=== PATIENT | male | born 1960 | race Caucasian/White ===

== ENCOUNTER → 2016-12-04 | Outpatient (CLI) | payer BC ==
[~2016-12-04] MED LIST: ASPEC81 PO; GABA-113 PO; HYDR-5688 PO; HYDR25TA4 PO; LISI2.5T5 PO; LOSA50TA6 PO; OXYC-57 PO; PANT40TA PO; POLY335019 PO; ZLF/100 PO; ZLF/50 PO; ZOLP10TA PO
--- NOTE | 2016-12-04 13:07 | DIAGNOSTIC IMAGING REPORT ---
TESTICULAR ULTRASOUND CLINICAL HISTORY: Inguinal pain COMPARISON STUDY: None FINDINGS: The right testis measures 4.9 x 2.3 x 3.1 cm. The left testis measures 5.0 x 2.3 x 2.9 cm. There is no evidence of testicular torsion. There is a 2 mm cyst of the tunica on the left. There is a small epididymal cyst on the left. IMPRESSION: 1. No evidence of testicular torsion 2. 2 mm left-sided cyst of the tunica Electronically signed by: Ruy Mccrary M.D. 12/04/2016 1:06 PM Dictated Date/Time: 12/04/2016 1:04 PM
--- NOTE | 2016-12-04 13:21 | DIAGNOSTIC IMAGING REPORT ---
LEFT INGUINAL ULTRASOUND CLINICAL HISTORY: Left inguinal pain COMPARISON STUDY: No previous studies for comparison. FINDINGS: There is a large bowel and fat-containing reducible left inguinal hernia. IMPRESSION: Bowel and fat-containing left inguinal hernia which is reducible. Electronically signed by: Ruy Mccrary M.D. 12/04/2016 1:19 PM Dictated Date/Time: 12/04/2016 1:18 PM
== END | disposition home or self-care (01) ==
LOC: C.ULTR 12:02
PROVIDERS: ATTEND Family Medicine
DX: K40.90 Unilateral inguinal hernia, without obstruction or gangrene, not specified as recurrent (principal); N44.1 Cyst of tunica albuginea testis

== ENCOUNTER 2017-01-25 07:19 | Day surgery (SDC) | payer BC ==
[2017-01-11 09:06] VITALS: BMI 35.0
--- NOTE | 2017-01-11 09:30 | PAT Medication Instructions ---
Service Date January 11, 2017. Current Home Medication List Gabapentin (Neurontin), 300 MG PO QID Hydrochlorothiazide (Hctz), 25 MG PO QAM Losartan Potassium (Cozaar), 50 MG PO QAM Pantoprazole (Protonix), 40 MG PO HS Polyethylene Glycol 3350 (Miralax), 17 GM PO DAILY Sertraline HCl (Sertraline HCl), 50 MG PO QAM Zolpidem Tartrate (Ambien), 10 MG PO HS Medication Instructions For Your Scheduled Surgery - Hold the following medications the morning of surgery: Hydrochlorothiazide (Hctz), 25 MG PO QAM Losartan Potassium (Cozaar), 50 MG PO QAM Polyethylene Glycol 3350 (Miralax), 17 GM PO DAILY - Take the following medications the morning of surgery with a sip of water OTHERWISE NOTHING TO EAT OR DRINK AFTER MIDNIGHT: Gabapentin (Neurontin), 300 MG PO QID Sertraline HCl (Sertraline HCl), 50 MG PO QAM - Take the following medications as scheduled the night before surgery: Pantoprazole (Protonix), 40 MG PO HS Zolpidem Tartrate (Ambien), 10 MG PO HS Gabapentin (Neurontin), 300 MG PO QID If you have any questions please call us at [phone] or [phone] or [phone]
[2017-01-11 10:44] LABS: BASO % 0.1 %; BASO ABS # 0.01 K/uL (0-0.2); COMPLETE YES; EOS % 0.9 %; HEMATOCRIT 44.2 % (42-52); IG% 0.2 %; LYMPH % 15.4 %; LYMPH ABS # 1.52 K/uL (1.2-3.4); MEAN CELL VOLUME 90.8 fL (80-100); MEAN CORPUSCULAR HEMOGLOBIN 30.8 pg (25-34); MEAN CORPUSCULAR HGB CONC 33.9 g/dl (32-36); MEAN PLATELET VOLUME 10.4 fL (7.4-10.4); MONO % 7.5 %; NEUT % 75.9 %; PLATELET COUNT 214 K/uL (130-400); RED BLOOD COUNT 4.87 M/uL (4.7-6.1); WHITE BLOOD COUNT 9.88 K/uL (4.8-10.8)
[2017-01-11 11:30] LABS: BUN/CREATININE RATIO 13.2 (10-20); CALCIUM 9.3 mg/dl (8.5-10.1); POTASSIUM 4.1 mmol/L (3.5-5.1)
[~2017-01-25] VITALS: Ht 177.8 cm; Wt 109.9 kg
[~2017-01-25 07:19] MED LIST changes: -ASPEC81 PO; +BUPIVACAINE/EPINEPHRINE 0.5% MPF 1:200,000 30 ML VIAL ONE; +CEFAZOLIN 2000 MG/60 ML D5W IV SCH; -HYDR-5688 PO; +LACTATED RINGER'S 1000ML 1,000 ML IV SCH; -LISI2.5T5 PO; -OXYC-57 PO; -ZLF/100 PO
[2017-01-25] MEDS ORDERED: ROCURONIUM BROMIDE 10 MG/ML 5 ML VIAL ONE (07:49)
[2017-01-25] MEDS ORDERED: FENTANYL CITRATE INJ 50 MCG/1 ML 2 ML VIAL ONE ×3 (07:49→09:57)
[2017-01-25] MEDS ORDERED: MIDAZOLAM HCL 1 MG/ML 2ML VIAL ONE (07:49)
[2017-01-25] MEDS ORDERED: LIDOCAINE HCL 2% 2 ML VIAL (20MG/ML) ONE (07:49)
[2017-01-25] MEDS ORDERED: PROPOFOL IV EMULSION 10 MG/ML 20 ML VIAL IV ONE (07:49)
[2017-01-25 07:51] VITALS: BP 174/96; PULSE 89; TEMP 37.4; O2SAT 98; Ht 177.8 cm; Wt 109.9 kg
--- NOTE | 2017-01-25 08:15 | History & Physical Bridge Note ---
H&P Re-Evaluation Bridge Note: I have examined the patient, reviewed the History & Physical and in the interval since the performance of the History & Physical I have noted the following changes of clinical significance: No changes noted
[2017-01-25] MEDS ORDERED: ONDANSETRON INJ 2 MG/ML 2 ML VIAL ONE (09:06)
[2017-01-25] MEDS ORDERED: DEXAMETHASONE SOD INJ 4 MG/ML VIAL ONE (09:06)
--- NOTE | 2017-01-25 09:35 | [facility] Operative Report ---
Operative Report Operative Date January 25, 2017. Pre-Operative Diagnosis Left Inguinal Hernia Post-Operative Diagnosis recurrent LIH Procedure(s) Performed open repair of recurrent LIH with plug/patch mesh Surgeon Director Of Religious Activities Surgeon(s) joanie farrell Pa-c; scar cohen Pa-c Estimated Blood Loss 10ml Findings large recurrent indirect LIH Specimens None per surgeon. Anesthesia LMA Complication(s) None Disposition Recovery Room / PACU I attest to the content of the Intraoperative Record and any orders documented therein. Any exceptions are noted below.
[2017-01-25] MEDS ORDERED: LACTATED RINGER'S 1000ML 1,000 ML IV SCH (09:46)
[2017-01-25] MEDS ORDERED: HYDR-5688 PO (09:49)
--- NOTE | 2017-01-25 09:52 | Discharge Instructions ---
Discharge Instructions Date of Service January 25, 2017. Visit Reason for Visit: Left Inguinal Hernia Discharge Discharge Diagnosis / Problem: left inguinal hernia repair Discharge Goals Goal(s): Decrease discomfort Activity Recommendations Activity Limitations: as noted below Lifting Limitations: no more than 10 pounds Shower/Bathe: no limitations (ok to shower) Driving or Machine Use: resume 3 days after discharge (if not taking Houstonia) Anesthesia . Post Anesthesia Instructions: If you have had General Anesthesia or IV Sedation: * Do not drive today. * Resume driving when surgeon permits. * Do not make important decisions or sign legal documents today. * Call surgeon for: 1. Temperature elevations greater than 101 degrees F. 2. Uncontrollable pain. 3. Excessive bleeding. 4. Persistent nausea and vomiting. 5. Medication intolerance (nausea, vomiting or rash). * For nausea and vomiting use only clear liquids such as: tea, soda, bouillon until nausea subsides, then gradually increase diet as tolerated. * If you have any concerns or questions, call your surgeon's office. If physician is unavailable and it is an emergency, call 911 or go to the nearest emergency room. . Instructions / Follow-Up Instructions / Follow-Up Dr. Leal in 1-2 weeks, call [phone] if you do not already have an appt Ice left groin off and on alternating every 20 minutes until bedtime Diet Recommendations Recommended Home Diet: no limitations Procedures Procedures Performed: Left Open Inguinal Hernia Repair with Mesh Pending Studies Studies pending at discharge: no Medical Emergencies . Who to Call and When: Medical Emergencies: If at any time you feel your situation is an emergency, please call 911 immediately. . Non-Emergent Contact Non-Emergency issues call your: Surgeon Call Non-Emergent contact if: you have a fever, temperature is above 101.5, your pain is not controlled, wound has increased redness . . "Provider Documentation" section prepared by Arron Kim. .
[2017-01-25] MEDS: FENTANYL CITRATE INJ 50 MCG/1 ML 2 ML VIAL IV PRN ×4 (09:57→10:12)
[2017-01-25] MEDS ORDERED: ATROPINE SULFATE 0.1 MG/ML 5ML SYR IV PRN (10:00)
[2017-01-25] MEDS ORDERED: MoRPHine SULFATE 4 MG/ML 1 ML CARP\\VIAL IV PRN (10:00)
[2017-01-25] MEDS ORDERED: PROMETHAZINE HCL INJ 6.25 MG in SODIUM CHLORIDE 0.9% 50ML 50 ML IV PRN (10:00)
[2017-01-25] MEDS ORDERED: EpHEDrine SULFATE INJ 50 MG/ML AMP IV PRN (10:00)
[2017-01-25] MEDS ORDERED: HYDROCODONE/ACETAMOPHEN 5/325MG TAB PO PRN (10:00)
[2017-01-25] MEDS ORDERED: ONDANSETRON INJ 2 MG/ML 2 ML VIAL IV PRN ×2 (10:00)
--- NOTE | 2017-01-25 10:20 | OPERATIVE REPORT ---
DATE OF OPERATION: 01/25/2017 PREOPERATIVE DIAGNOSIS: Left inguinal hernia. POSTOPERATIVE DIAGNOSIS: Recurrent left inguinal hernia. PROCEDURES: Open left inguinal hernia repair with plug and patch mesh. SURGEON: Dr. Leal. POSTIE: Elliott Kim PA-C and Mary Zheng PA-C. ESTIMATED BLOOD LOSS: Approximately 10 mL. COMPLICATIONS: No immediate. ANESTHESIA: General laryngeal mask airway. OPERATION AND FINDINGS: OPERATIVE NOTE: After informed consent was obtained, the patient was taken to the operating suite, placed in supine position. After successful intubation a Rico catheter was placed and the lower abdomen was shaved and sterilely prepped and draped in usual fashion. The patient did not admit during history as well as my exam, I was unable because of body habitus and hair I was unable to see his previous bilateral open inguinal hernia repairs. I was under the assumption this was a first time hernia repair, however it was obvious he had had bilateral inguinal hernia repairs in the past. I started by making an inguinal incision just above his old incision so we could have some virgin anatomy to start with. We carried this down through the soft tissue using electrocautery. I was able to dissect down through the tissue to the external oblique aponeurosis. We skeletonized it laterally down to the shelving portion of the inguinal ligament. I then made a small incision in the external oblique aponeurosis with a fresh blade and carried this distally with the Metzenbaum scissors through the external ring as well as for several centimeters proximally. Fortunately, there was no mesh. I was able to dissect free the cord and cord structures. I was able to gently elevate the cord structures off the pubic bone with blunt finger dissection and placed the Arnulfo around them. As we began dissecting the cord structures there was a very large hernia sac with bowel within it. We were able use a lot of blunt dissection and small amounts of electrocautery to tease this away from the cord and cord structures. Eventually, I was able to get it the whole way back to its neck to what was a very large hernia defect. I was able to rather easily reduce this large hernia sac as well as the bowel within it. Because of the large size of the defect, it was difficult to keep it reduced. We used a polypropylene plug to place into the defect. We used 0 Ethibond to secure it to surrounding musculature as well as the shelving portion of the inguinal ligament to keep the hernia reduced. Once we did this, we were able to further inspect the anatomy. There was no evidence of any other hernias. The cord and cord structures looked healthy. We did irrigate the wound and then used a polypropylene keyholed mesh as an onlay overtop of the plug in the inguinal floor. We secured it distally to Chente's ligament, laterally along the shelving portion of Poupart's ligament and medially along the midline musculature. The "arms" of the mesh were wrapped around behind the cord structures and again secured to underlying muscle. This was all done with 0 Ethibond. We thoroughly irrigated the wound again. There was adequate hemostasis. Marcaine was injected around the edges of the mesh for postoperative analgesia. We then closed the external oblique aponeurosis with 2-0 Vicryl in a running fashion. Soft tissue was irrigated and closed with 3-0 Vicryl and 4-0 Monocryl. Some additional Marcaine was injected around the skin. Dermabond glue was used as a dressing. The patient was awakened, extubated, and transferred to recovery in stable condition. I attest to the content of the Intraoperative Record and any orders documented therein. Any exceptio ns are noted below.
[2017-01-25] MEDS ORDERED: LABETALOL HCL IV 5 MG/ML 20ML IV ONE (10:21)
[2017-01-25] MEDS ORDERED: NURSING VERBAL MED ORDER ONE (10:45)
[2017-01-25 10:50] VITALS: BP 136/90; PULSE 86; TEMP 36.8; O2SAT 97
[2017-01-25 11:20] VITALS: BP 141/85; PULSE 93; TEMP 36.6; O2SAT 94
--- NOTE | 2017-01-25 11:35 | Anesthesiology Progress Note ---
Anesthesia Post Op Note Date & Time January 25, 2017 at 11:34 Vital Signs Pain Intensity: 4 Vital Signs Past 12 Hours Date Time Temp Pulse Resp B/P Pulse Ox O2 Delivery O2 Flow Rate FiO2 01/25/17 11:20 36.6 93 16 141/85 94 Room Air 01/25/17 10:50 36.8 86 16 136/90 97 Room Air 01/25/17 10:35 36.7 87 14 137/93 98 Nasal Cannula 2 01/25/17 10:25 91 14 115/90 92 Nasal Cannula 2 01/25/17 10:15 108 14 162/135 96 Mask 10 01/25/17 10:05 101 14 185/125 96 Mask 10 01/25/17 09:55 102 14 186/106 96 Mask 10 01/25/17 09:45 36.9 102 14 162/101 96 Mask 10 01/25/17 07:51 37.4 89 20 174/96 98 Room Air Notes Mental Status: alert / awake / arousable, participated in evaluation Pt Amnestic to Procedure: Yes Nausea / Vomiting: adequately controlled Pain: adequately controlled Airway Patency, RR, SpO2: stable & adequate BP & HR: stable & adequate Hydration State: stable & adequate Anesthetic Complications: no major complications apparent Patient hypertensive on arrival, held his antihypertensives today. He did require treatment with 2x 10mg doses of labetalol in PACU for diastolic hypertension with no other apparent correctable cause. He will take his BP meds when he gets home.
[2017-01-25 11:50] VITALS: BP 141/84; PULSE 95; TEMP 36.4; O2SAT 92
[2017-01-25 12:20] VITALS: BP 141/82; PULSE 97; TEMP 36.3; O2SAT 92
[2017-01-25 12:50] VITALS: BP 140/80; PULSE 98; TEMP 36.9; O2SAT 92
== END 2017-01-25 13:40 | disposition home or self-care (01) ==
LOC: C.ACU 07:19
PROVIDERS: ATTEND Surgery
DX: K40.91 Unilateral inguinal hernia, without obstruction or gangrene, recurrent (principal); I10 Essential (primary) hypertension; E78.5 Hyperlipidemia, unspecified; K21.9 Gastro-esophageal reflux disease without esophagitis; Z79.899 Other long term (current) drug therapy

== ENCOUNTER 2017-01-28 03:11 | Emergency (ER) | payer BC ==
[~2017-01-28 03:11] MED LIST changes: -BUPIVACAINE/EPINEPHRINE 0.5% MPF 1:200,000 30 ML VIAL ONE; -CEFAZOLIN 2000 MG/60 ML D5W IV SCH; +HYDR-5688 PO; -LACTATED RINGER'S 1000ML 1,000 ML IV SCH
[2017-01-28 03:14] VITALS: TEMP 36.8; Ht 182.9 cm
[2017-01-28] MEDS ORDERED: ONDANSETRON INJ 2 MG/ML 2 ML VIAL IV STA ×2 (03:26→05:03)
[2017-01-28] MEDS ORDERED: SODIUM CHLORIDE 0.9% 1000ML 1,000 ML IV STA (03:26)
[2017-01-28] MEDS ORDERED: MoRPHine SULFATE 4 MG/ML 1 ML CARP\\VIAL IV STA ×2 (03:26→05:03)
--- NOTE | 2017-01-28 03:30 | EMERGENCY ROOM VISIT NOTE ---
History Report prepared by Bertoibkerri: Antonino Houser Under the Supervision of: Dr. Jesus Xiong D.O. First contact with patient: 03:20 Chief Complaint: ABDOMINAL PAIN Stated Complaint: HERNIA SX 01/25, SEVERE PAIN LLQ History of Present Illness The patient is a 56 year old male who presents to the Emergency Room with complaints of severe pain in the left inguinal area. The patient describes a burning pain that became worse tonight. The pain is also felt in the testicle area. The patient was unable to sit secondary to pain. The pain was not relieved from Vicodin or Oxycodone. The patient notes that his abdomen feels distended and he has been eating less. The patient recently had a herniorrhaphy performed by Dr. Leal three days ago. He has had the pain since the surgery which is now unbearable. Source of History: patient Onset: three days ago Position: abdomen (left inguinal area) Symptom Intensity: severe Quality: burning Timing: worsening Review of Systems See HPI for pertinent positives and negatives. A total of ten systems were reviewed and were otherwise negative. Past Medical & Surgical Medical Problems: (1) Chest pain (2) Hypertension Family History No pertinent family history Social History Smoking Status: Never Smoker Marital Status: Housing Status: lives with family Occupation Status: employed Current/Historical Medications Scheduled Gabapentin (Neurontin), 300 MG PO QID Hydrochlorothiazide (Hctz), 25 MG PO QAM Losartan Potassium (Cozaar), 50 MG PO QAM Pantoprazole (Protonix), 40 MG PO HS Polyethylene Glycol 3350 (Miralax), 17 GM PO DAILY Sertraline HCl (Sertraline HCl), 50 MG PO QAM Zolpidem Tartrate (Ambien), 10 MG PO HS Allergies Coded Allergies: CI Pigment Blue 63 (Verified Allergy, Intermediate, HIVES, BLISTERS, ) Fish Allergy (Verified Allergy, Intermediate, HIVES, FEVER, 01/28/17) Oseltamivir (Verified Allergy, Intermediate, HIVES, BLISTERS, 01/28/17) Tetanus Toxoid (Verified Allergy, Intermediate, FEVER, 01/28/17) Amoxicillin (Verified Allergy, Mild, HIVES, 01/28/17) Lisinopril (Verified Allergy, Mild, HIVES, 01/28/17) Shellfish (Verified Allergy, Mild, ANAPHYLACTIC, 01/28/17) Physical Exam Vital Signs Date Time Temp Pulse Resp B/P Pulse Ox O2 Delivery O2 Flow Rate FiO2 01/28/17 05:01 98 18 138/98 93 Room Air 01/28/17 04:02 96 01/28/17 03:14 36.8 106 18 129/87 94 Room Air Physical Exam GENERAL: Awake, alert, well-appearing, in no distress HENT: Normocephalic, atraumatic. Oropharynx unremarkable. EYES: Normal conjunctiva. Sclera non-icteric. NECK: Supple. No nuchal rigidity. FROM. No JVD. RESPIRATORY: Clear to auscultation. CARDIAC: Regular rate, normal rhythm. Extremities warm and well perfused. Pulses equal. ABDOMEN: Diffuse tenderness, decreased bowel sounds. Surgical site in the left inguinal region that appers intact. RECTAL: Deferred. : Ecchymosis to the scrotum and penis. MUSCULOSKELETAL: Chest examination reveals no tenderness. The back is symmetrical on inspection without obvious abnormality. There is no CVA tenderness to palpation. No joint edema. LOWER EXTREMITIES: Calves are equal size bilaterally and non-tender. No edema. No discoloration. Neurovascularly intact left lower leg. NEURO: Normal sensorium. No sensory or motor deficits noted. SKIN: No rash or jaundice noted. Diaphoretic. Medical Decision & Procedures ER Provider Diagnostic Interpretation: Radiology results as stated below per my review and radiologist interpretation CT ABDOMEN & PELVIS: Post-operative changes left inguinal hernia repair with fat stranding in the left inguinal region. Small gas bubbles and small fluid collection within the left inguinal region left lower pelvis likely reflects recent postop change. Colonic diverticulosis without convincing findings of acute diverticulitis. Normal appendix. No bowel obstruction. Distended gallbladder. Mild haziness of the mid abdominal mesentery with small nodes. May represent mesenteric panniculitis. Small hiatal hernia containing fluid. Mild basilar atelectasis. Radiologist: Neha Moran MD. Laboratory Results 01/28/17 03:46 Red Blood Count 4.67, Mean Corpuscular Volume 90.4, Mean Corpuscular Hemoglobin 30.0, Mean Corpuscular Hemoglobin Concent 33.2, Mean Platelet Volume 9.7, Neutrophils (%) (Auto) 76.9, Lymphocytes (%) (Auto) 12.4, Monocytes (%) (Auto) 8.5, Eosinophils (%) (Auto) 1.5, Basophils (%) (Auto) 0.3, Neutrophils # (Auto) 5.49, Lymphocytes # (Auto) 0.89, Monocytes # (Auto) 0.61, Eosinophils # (Auto) 0.11, Basophils # (Auto) 0.02 01/28/17 03:46 Test 01/28/17 03:46 White Blood Count 7.15 K/uL (4.8-10.8) Red Blood Count 4.67 M/uL (4.7-6.1) Hemoglobin 14.0 g/dL (14.0-18.0) Hematocrit 42.2 % (42-52) Mean Corpuscular Volume 90.4 fL (80-100) Mean Corpuscular Hemoglobin 30.0 pg (25-34) Mean Corpuscular Hemoglobin Concent 33.2 g/dl (32-36) Platelet Count 206 K/uL (130-400) Mean Platelet Volume 9.7 fL (7.4-10.4) Neutrophils (%) (Auto) 76.9 % Lymphocytes (%) (Auto) 12.4 % Monocytes (%) (Auto) 8.5 % Eosinophils (%) (Auto) 1.5 % Basophils (%) (Auto) 0.3 % Neutrophils # (Auto) 5.49 K/uL (1.4-6.5) Lymphocytes # (Auto) 0.89 K/uL (1.2-3.4) Monocytes # (Auto) 0.61 K/uL (0.11-0.59) Eosinophils # (Auto) 0.11 K/uL (0-0.5) Basophils # (Auto) 0.02 K/uL (0-0.2) RDW Standard Deviation 41.9 fL (36.4-46.3) RDW Coefficient of Variation 12.7 % (11.5-14.5) Immature Granulocyte % (Auto) 0.4 % Immature Granulocyte # (Auto) 0.03 K/uL (0.00-0.02) Anion Gap 6.0 mmol/L (3-11) Estimated GFR () 107.3 Estimated GFR (Non- 92.6 BUN/Creatinine Ratio 21.2 (10-20) Calcium Level 8.4 mg/dl (8.5-10.1) Total Bilirubin 0.6 mg/dl (0.2-1) Direct Bilirubin 0.2 mg/dl (0-0.2) Aspartate Amino Transf (AST/SGOT) 11 U/L (15-37) Alanine Aminotransferase (ALT/SGPT) 19 U/L (12-78) Alkaline Phosphatase 80 U/L (45-117) Total Protein 7.1 gm/dl (6.4-8.2) Albumin 3.4 gm/dl (3.4-5.0) Lipase 81 U/L (73-393) Laboratory results reviewed by me Medications Administered Medications (Trade) Dose Ordered Sig/John Route Start Time Stop Time Status Last Admin Dose Admin Sodium Chloride (Nss 1000ml) 1,000 ml @ 999 mls/hr Q1H1M STAT IV 01/28/17 03:26 01/28/17 04:26 DC 01/28/17 03:55 999 MLS/HR Ondansetron HCl (Zofran Inj) 4 mg NOW STAT IV 01/28/17 03:26 01/28/17 03:28 DC 01/28/17 03:56 4 MG Morphine Sulfate (MoRPHine SULFATE INJ) 4 mg NOW STAT IV 01/28/17 03:26 01/28/17 03:28 DC 01/28/17 03:55 4 MG Morphine Sulfate (MoRPHine SULFATE INJ) 4 mg NOW STAT IV 01/28/17 05:03 01/28/17 05:05 DC 01/28/17 05:08 4 MG Ondansetron HCl (Zofran Inj) 4 mg NOW STAT IV 01/28/17 05:03 01/28/17 05:05 DC 01/28/17 05:07 4 MG ED Course 0320: The patient was evaluated in room A2. A complete history and physical exam was performed. 0326: Morphine Sulfate 4 mg IV, Zofran 4 mg IV, NSS 1000 ml @ 999 mls/hr. 0503: Zofran 4 mg IV, Morphine Sulfate 4 mg IV. 0558: Discussed the case with Dr. Sanford, General Surgery. The patient can be discharged. 0605: I reevaluated the patient, he was resting in no distress. Discussed results and discharge instructions: He verbalized understanding and agreement. The patient is ready for discharge. Medical Decision Differential diagnosis post-op pain, bowel obstruction, constipation, neuropathy. Resting in no distress on repeat examination discussed the evaluation with Dr. Sanford from surgery and read the CT result to him. Likely postoperative pain. Patient will follow-up with Dr. Leal this week. I discussed evaluation with the patient patient's son at bedside. I will change his pain medicine to Percocet. Consults Time Called: 0550 Consulting Physician: Dr. Sanford, General Surgery. Returned Call: [phone] The patient can be discharged. Impression Primary Impression: Postoperative pain, acute, groin Scribe Attestation The scribe's documentation has been prepared under my direction and personally reviewed by me in its entirety. I confirm that the note above accurately reflects all work, treatment, procedures, and medical decision making performed by me. Departure Information Dispostion Home / Self-Care Prescriptions Oxycodone/Acetaminophen 5MG/325MG (PERCOCET 5MG/325MG) Tab 1 TAB PO Q4H Y for Pain, #20 TAB Prov: Jesus Xiong, 01/28/17 Referrals Heather Peterson PA-C (PCP) Forms Call Back Authorization, HOME CARE DOCUMENTATION FORM, IMPORTANT VISIT INFORMATION Patient Instructions Abdominal Pain, My [facility] Problem Qualifiers Primary Impression: Postoperative pain, acute, groin Laterality: left Qualified Codes: R10.32 - Left lower quadrant pain; G89.18 - Other acute postprocedural pain
[2017-01-28] MEDS ORDERED: OPTIRAY 320 IV PRN (03:45)
[2017-01-28 03:59] LABS: BASO % 0.3 %; BASO ABS # 0.02 K/uL (0-0.2); COMPLETE YES; EOS % 1.5 %; HEMATOCRIT 42.2 % (42-52); IG% 0.4 %; LYMPH % 12.4 %; LYMPH ABS # 0.89 K/uL (1.2-3.4); MEAN CELL VOLUME 90.4 fL (80-100); MEAN CORPUSCULAR HGB CONC 33.2 g/dl (32-36); MEAN PLATELET VOLUME 9.7 fL (7.4-10.4); MONO % 8.5 %; NEUT % 76.9 %; PLATELET COUNT 206 K/uL (130-400); RED BLOOD COUNT 4.67 M/uL (4.7-6.1); WHITE BLOOD COUNT 7.15 K/uL (4.8-10.8)
[2017-01-28 04:17] LABS: ALT/SGPT 19 U/L (12-78); AST/SGOT 11 U/L (15-37); BLOOD UREA NITROGEN 19 mg/dl (7-18); BUN/CREATININE RATIO 21.2 (10-20); CALCIUM 8.4 mg/dl (8.5-10.1); CARBON DIOXIDE 31 mmol/L (21-32); CHLORIDE 104 mmol/L (98-107); CREATININE 0.91 mg/dl (0.60-1.40); GLUCOSE 113 mg/dl (70-99); POTASSIUM 3.7 mmol/L (3.5-5.1); SODIUM 141 mmol/L (136-145)
[2017-01-28 04:19] LABS: ALKALINE PHOSPHATASE 80 U/L (45-117)
[2017-01-28] MEDS ORDERED: OXYC-57 PO (06:10)
[2017-01-28 06:36] VITALS: BP 98/75; PULSE 97; O2SAT 95
--- NOTE | 2017-01-28 07:57 | DIAGNOSTIC IMAGING REPORT ---
ABDOMEN AND PELVIS CT WITH IV CONTRAST CT DOSE: 1136.05 mGy.cm HISTORY: Status post left inguinal hernia repair. Left lower quadrant pain. TECHNIQUE: Multiaxial CT images of the abdomen and pelvis were performed following the use of intravenous contrast. COMPARISON STUDY: None. FINDINGS: There is a 7 mm partially calcified nodule within the left lower lobe on image 21. This favors a calcified granuloma. Mild dependent changes seen within the lungs posteriorly. No fractures within the visualized osseous structures. Mild thickening of the distal esophagus which is also fluid-filled. Mild hepatic steatosis. The spleen, adrenal glands, pancreas, and gallbladder are unremarkable. No renal stones or hydronephrosis. Mild infiltration of the central mesenteric fat suggesting a mild mesenteric panniculitis. No retroperitoneal lymphadenopathy. The bladder is unremarkable. Colonic diverticulosis. No bowel wall thickening or obstruction. Gas and fluid filled structure within the left lower quadrant anteriorly at the opening of the left inguinal hernia. This favors a mesh status post hernia repair. Small amount of fat stranding and gas within the left inguinal region and extending along the left lateral abdominal wall musculature. No significant postoperative hematoma identified. Normal appendix. IMPRESSION: 1. Fat stranding and subcutaneous gas within the left groin. There is also a focal gas and fluid-filled structure within the left lower quadrant at the opening of the left inguinal hernia which favors a mesh status post hernia repair. No significant postoperative hematoma identified. 2. No bowel wall thickening or obstruction. 3. Colonic diverticulosis. 4. Mild thickening of the distal esophagus which is fluid-filled. This favors a nonspecific esophagitis. 5. A 7 mm nodule within the left lower lobe. This is partially calcified. This favors a granuloma. However, please refer to the chart below for recommended follow-up. Please refer to below summary of Fleischner criteria recommendations for follow-up of incidental CT nodules (Vamsi Pinto, Guidelines for management of small pulmonary nodules detected on CT scans: A statement from the Fleischner Society, Radiology 237: [phone].) SOLID NODULES Solitary nodule size: <6 mm * Low risk patients: no follow-up needed * high risk patients: optional CT at 12 months Solitary nodule size: 6-8 mm * Low risk patients: follow-up at 6-12 months, then consider further follow-up at 18-24 months * high risk patients: initial follow-up CT at 6-12 months and then at 18-24 months if no change Solitary nodule size: >8 mm * either low or high risk patients - consider follow-up CT at 3 months, and/or CT-PET, and/or biopsy Multiple nodules size: <6 mm * Low risk patients: no routine follow-up * high risk patients: optional CT at 12 months Multiple nodules size: 6-8 mm * Low risk patients: follow-up at 3-6 months, then consider further follow-up at 18-24 months * high risk patients: follow-up at 3-6 months, then at 18-24 months if no change Multiple nodules size: >8 mm * Low risk patients: follow-up at 3-6 months, then consider further follow-up at 18-24 months * high risk patients: follow-up at 3-6 months, then at 18-24 months if no change Note: newly detected indeterminate nodule in persons 35 years of age or older. * Low risk patients: minimal or absent history of smoking and/or other known risk factors * high risk patients: history of smoking or of other known risk factors (e.g. first degree relative with lung cancer, or exposure to asbestos, radon, uranium) * if a nodule up to 8 mm is partly solid or is ground glass further follow-up is required after 24 months to exclude possible slow growing adenocarcinoma (RENATO) SUBSOLID NODULES Solitary pure ground-glass nodule * nodule size <6 mm - no CT follow-up required * nodule size >=6 mm - follow-up CT at 6-12 months, then every 2 years until 5 years Solitary part-solid nodule * nodule size <6 mm - no CT follow-up required * nodule size >=6 mm - follow-up CT at 3-6 months. If unchanged, and solid component remains <6 mm, then annual follow-up for 5 years Multiple subsolid nodules * nodule size <6 mm - follow-up CT at 3-6 months, consider further follow-up at 2 and 4 years if stable * nodule size >=6 mm - follow-up CT at 3-6 months, subsequent management based on the most suspicious nodule(s) Electronically signed by: John Rosario M.D. 01/28/2017 7:56 AM Dictated Date/Time: 01/28/2017 7:48 AM
== END 2017-01-28 06:39 | disposition home or self-care (01) ==
LOC: C.EDB 03:12 → C.EDA 06:39
DX: G89.18 Other acute postprocedural pain (principal); R10.32 Left lower quadrant pain; I10 Essential (primary) hypertension; Z79.899 Other long term (current) drug therapy; Z88.1 Allergy status to other antibiotic agents; Z88.8 Allergy status to other drugs, medicaments and biological substances; Z91.018 Allergy to other foods

== ENCOUNTER 2017-10-27 20:40 | Inpatient (IN) | payer BC, OTHER ==
[~2017-10-27] VITALS: Ht 177.8 cm; Wt 100.1 kg
[~2017-10-27 20:40] MED LIST changes: -HYDR-5688 PO
[2017-10-27] MEDS ORDERED: GABA-113 PO (21:23)
[2017-10-27] MEDS ORDERED: GABA-1219 PO (21:23)
[2017-10-27] MEDS ORDERED: AMT/50 PO (21:24)
[2017-10-27 21:50] LABS: HEMATOCRIT 46.5 % (42-52); HEMOGLOBIN 16.1 g/dL (14.0-18.0); MEAN CELL VOLUME 89.9 fL (80-100); MEAN CORPUSCULAR HEMOGLOBIN 31.1 pg (25-34); MEAN CORPUSCULAR HGB CONC 34.6 g/dl (32-36); PLATELET COUNT 259 K/uL (130-400); RED CELL DISTRIBUTION WIDTH CV 13.9 % (11.5-14.5); RED CELL DISTRIBUTION WIDTH SD 45.5 fL (36.4-46.3); WHITE BLOOD COUNT 14.21 K/uL (4.8-10.8)
[2017-10-27 21:53] LABS: CALCIUM 8.5 mg/dl (8.5-10.1); CREATININE 2.14 mg/dl (0.60-1.40); POTASSIUM 3.9 mmol/L (3.5-5.1)
[2017-10-27] MEDS ORDERED: SODIUM CHLORIDE 0.9% 1000ML 1,000 ML IV STA (21:57)
[2017-10-27 22:07] LABS: TOTAL PROTEIN 8.1 gm/dl (6.4-8.2)
--- NOTE | 2017-10-27 22:22 | EMERGENCY ROOM VISIT NOTE ---
History Report prepared by Bobbi: My Domínguez Under the Supervision of: Dr. Candido Thurman D.O. First contact with patient: 20:58 Chief Complaint: MENTAL HEALTH EVALUATION Stated Complaint: 302 History of Present Illness The patient is a 57 year old male who presents to the Emergency Room for a mental health evaluation. The patient's has filled out a 302 petition on the patient for suicidal statements made over the past 30 days. The patient has made suicidal statements saying that he will run his truck into a wall. This week, he had been sick with flu symptoms. Today he confessed to his that he had actually tried to overdose on painkillers. He has also threatened to use his guns on anyone who comes to his house. The patient denies any thoughts of hurting himself or others. He denies taking any pills to hurt himself. He states that he was just watching TV and taking a nap today when the police came to his house and brought him here. He denies any history of anxiety, depression , or other mental health problems. He denies any previous inpatient mental health admissions. He complains of sore throat and hip pain. He tried taking Aleve today for hip pain. He denies any tobacco or alcohol use. He has a history of hypertension, but has not been taking his medications because of the cost. His son is currently being treated for stage 4 colon cancer. Source of History: patient Onset: 1 month ago Position: other (mental health) Quality: other (suicidal ideation) Timing: other (persistent) Associated Symptoms: + sorethroat Note: Pt reports hip pain. Pt denies suicidal or homicidal ideation. Review of Systems See HPI for pertinent positives & negatives. A total of 10 systems reviewed and were otherwise negative. Past Medical & Surgical Medical Problems: (1) Chest pain (2) Concern about becoming suicidal without diagnosis (3) Hypertension Family History Cancer Social History Smoking Status: Former Smoker Marital Status: Housing Status: lives with family Occupation Status: employed Current/Historical Medications Scheduled Amitriptyline HCl (Amitriptyline HCl), 50 MG PO HS Gabapentin (Gabapentin), 600 MG PO QAM Gabapentin (Neurontin), 300 MG PO BID UD Losartan Potassium (Cozaar), 50 MG PO QAM Pantoprazole (Protonix), 40 MG PO HS Sertraline HCl (Sertraline HCl), 50 MG PO QAM Zolpidem Tartrate (Ambien), 10 MG PO HS Scheduled PRN Polyethylene Glycol 3350 (Miralax), 17 GM PO DAILY PRN for Constipation Allergies Coded Allergies: CI Pigment Blue 63 (Verified Allergy, Intermediate, HIVES, BLISTERS, ) Fish Allergy (Verified Allergy, Intermediate, HIVES, FEVER, 01/28/17) Oseltamivir (Verified Allergy, Intermediate, HIVES, BLISTERS, 01/28/17) Tetanus Toxoid (Verified Allergy, Intermediate, FEVER, 01/28/17) Amoxicillin (Verified Allergy, Mild, HIVES, 01/28/17) Lisinopril (Verified Allergy, Mild, HIVES, 01/28/17) Shellfish (Verified Allergy, Mild, ANAPHYLACTIC, 01/28/17) Physical Exam Vital Signs Date Time Temp Pulse Resp B/P (MAP) Pulse Ox O2 Delivery O2 Flow Rate FiO2 10/27/17 22:15 110 20 158/79 93 Room Air 10/27/17 20:42 36.6 88 20 156/97 97 Room Air Physical Exam GENERAL: Patient is awake, alert, and in no acute distress. Patient is resting comfortably and showing no signs of anxiety EYES: The conjunctivae are clear. The pupils are round and reactive. EARS, NOSE, MOUTH AND THROAT: The nose is without any evidence of any deformity. Mucous membranes are moist tongue is midline NECK: The neck is nontender and supple. RESPIRATORY: Normal respiratory effort is noted there is no evidence of wheezing rhonchi or rales CARDIOVASCULAR: Regular rate and rhythm noted there no murmurs rubs or gallops normal S1 normal S2 GASTROINTESTINAL: The abdomen is soft. Bowel sounds are present in all quadrants. Abdomen is nontender MUSCULOSKELETAL/EXTREMITIES: There is no evidence of gross deformity full range of motion is noted in the hips and shoulders SKIN: There is no obvious evidence of any rash. There are no petechiae, pallor or cyanosis noted. NEUROLOGIC: Patient is awake alert and oriented x3 strength is symmetric patellar reflexes are 2+ bilaterally PSYCH: Currently denies any suicidal or homicidal ideation. Medical Decision & Procedures ER Provider Diagnostic Interpretation: X-ray results as stated below per interpretation by me and the radiologist. CHEST ONE VIEW PORTABLE CLINICAL HISTORY: Overdose COMPARISON STUDY: Chest radiograph December 30, 2015. FINDINGS: No pneumothorax or pleural effusion is noted. There is asymmetric interstitial thickening within the right lung. There is mild left basilar opacity. Cardiac size is normal. Mediastinal contours are normal. There is no evidence for pulmonary edema. IMPRESSION: Asymmetric interstitial thickening, greater within the right lung. The findings are nonspecific although an infectious process is favored. Radiographic follow up is recommended to ensure resolution. Electronically signed by: Manuel Nazario M.D. 10/27/2017 10:18 PM Dictated Date/Time: 10/27/2017 10:17 PM Laboratory Results Test 10/27/17 21:21 10/27/17 21:22 10/27/17 22:10 Troponin I < 0.015 ng/ml (0-0.045) Lipase 265 U/L (73-393) Salicylates Level 1.8 mg/dl (2.8-20) Acetaminophen Level < 2 ug/ml (10-30) Neutrophils % (Manual) 69.0 % Band Neutrophils % (Manual) 0.0 % Lymphocytes % (Manual) 10.0 % Variant Lymphocytes % (manual) 0.0 % Monocytes % (Manual) 13.0 % Eosinophils % (Manual) 2.0 % Metamyelocytes % 1.0 % Myelocytes % 5.0 % Neutrophils # (Manual) 9.80 K/uL (1.4-6.5) Total Absolute Neutrophils 9.80 K/uL (1.4-6.5) Lymphocytes # (Manual) 1.42 K/uL (1.2-3.4) Total Absolute Lymphocytes 1.42 K/uL (1.2-3.4) Monocytes # (Manual) 1.85 K/uL (0.11-0.59) Eosinophils # (Manual) 0.28 K/uL (0-0.5) Metamyelocytes # 0.14 K/uL (0-0) Myelocytes # 0.71 K/uL (0-0) Percent Large Granular Lymphocytes 0.0 % Toxic Granulation 1+ Toxic Vacuolation 1+ Dohle Bodies 1+ Prothrombin Time 10.4 SECONDS (9.0-12.0) Prothromb Time International Ratio 1.0 (0.9-1.1) Activated Partial Thromboplast Time 28.7 SECONDS (21.0-31.0) Partial Thromboplastin Ratio 1.1 Ethyl Alcohol mg/dL < 3.0 mg/dl (0-3) Urine Color DK YELLOW Urine Appearance CLEAR (CLEAR) Urine pH 5.0 (4.5-7.5) Urine Specific [place] 1.021 (1.000-1.030) Urine Protein TRACE (NEG) Urine Glucose (UA) NEG (NEG) Urine Ketones TRACE (NEG) Urine Occult Blood NEG (NEG) Urine Nitrite NEG (NEG) Urine Bilirubin NEG (NEG) Urine Urobilinogen NEG (NEG) Urine Leukocyte Esterase NEG (NEG) Urine WBC (Auto) 1-5 /hpf (0-5) Urine RBC (Auto) 0-4 /hpf (0-4) Urine Hyaline Casts (Auto) 10-30 /lpf (0-5) Urine Epithelial Cells (Auto) 10-20 /lpf (0-5) Urine Bacteria (Auto) NEG (NEG) Urine Opiates Screen NEG (NEG) Urine Methadone, Qualitative NEG (NEG) Urine Barbiturates NEG (NEG) Urine Phencyclidine (PCP) Level NEG (NEG) Ur Amphetamine/Methamphetamine NEG (NEG) MDMA (Ecstasy) Screen NEG (NEG) Urine Benzodiazepines Screen NEG (NEG) Urine Cocaine Metabolite NEG (NEG) Urine Marijuana (THC) NEG (NEG) Laboratory results per my review. Medications Administered Medications (Trade) Dose Ordered Sig/John Route Start Time Stop Time Status Last Admin Dose Admin Sodium Chloride 1,000 ml @ 999 mls/hr Q1H1M STAT IV 10/27/17 21:57 10/27/17 22:57 DC 10/27/17 22:27 999 MLS/HR ECG Per My Interpretation Indication: toxicologic Rate (beats per minute): 109 Rhythm: sinus tachycardia Findings: PAC, other (no acute ST segment abnormality) Comparison ECG Date: 11-Jan-2017 Change: no significant change ED Course 2104: The patient was evaluated in room A8. A complete history and physical examination were performed. 7: NSS 1000 ml @ 999 mls/hr IV. 2225: Dr. Hidalgo, [facility] hospitalist was notified of the patient. The patient will be evaluated for further management. 2232: Upon reevaluation, the patient is resting comfortably. I discussed results and treatment plan with him. He verbalizes agreement and understanding. The patient will be evaluated for further management and care. Medical Decision Prior records/ancillary studies reviewed. Triage Nursing notes reviewed. Additional history obtained from rn case mgr. The patient's history was concerning for possible psychiatric disturbance. Differential diagnosis: Etiologies such as mood disorder, infection, hypoglycemia, electrolyte abnormalities, cardiac sources, intracerebral event, toxicologic, neurologic, as well as others were entertained. The patient is a 57-year-old male who presented to the emergency department for an evaluation of a mental health problem. The patient denies any problems. He denies any suicidal homicidal ideation. He also denies having any drug overdoses or taking medications inappropriately. The patient arrived at the emergency department is a 302 petition. I reviewed 302 petition with the mental health rn case mgr. The patient was not able to be medically cleared in the emergency department at this time because of laboratory abnormalities. I discussed this with the patient. I discussed his case with the on-call not in the hospitalist. They have agreed to evaluate the patient in the emergency department for further management and disposition. The patient was treated with IV fluids. Medication Reconcilliation Current Medication List: was personally reviewed by me Blood Pressure Screening Patient's blood pressure: Elevated blood pressure Blood pressure disposition: Referred to PCP Consults Time Called: 2225 Consulting Physician: Dr. Hidalgo [facility] hospitalist He was notified of the patient. The patient will be evaluated for further management. Impression Primary Impression: Suicidal ideation Additional Impressions: Rhabdomyolysis ESTELA (acute kidney injury) Liver function study, abnormal Scribe Attestation The scribe's documentation has been prepared under my direction and personally reviewed by me in its entirety. I confirm that the note above accurately reflects all work, treatment, procedures, and medical decision making performed by me. Departure Information Dispostion Being Evaluated By Hospitalist Referrals Heather Peterson PA-C (PCP) Patient Instructions My [facility] Problem Qualifiers Additional Impressions: Rhabdomyolysis Rhabdomyolysis type: non-traumatic Qualified Codes: M62.82 - Rhabdomyolysis
[2017-10-27 22:43] LABS: PTT PATIENT 28.7 SECONDS (21.0-31.0)
[2017-10-28] VITALS (8 sets, daily range): BP systolic 124–169; BP diastolic 73–92; PULSE 100–112; TEMP 36.4–37.5; O2SAT 95–97; Ht 177.8 cm; Wt 100.1 kg
[2017-10-28] MEDS ORDERED: ALUMINUM/MAGNESIUM/SIMETH (MAALOX MAX) 30 ML UDC PO PRN (01:00)
[2017-10-28] MEDS ORDERED: MAGNESIUM HYDROXIDE SUSP 30 ML UDC PO PRN (01:00)
[2017-10-28] MEDS ORDERED: ONDANSETRON INJ 2 MG/ML 2 ML VIAL IV PRN (01:00)
[2017-10-28] MEDS ORDERED: GABAPENTIN 300 MG CAP PO STA (01:20)
[2017-10-28] MEDS ORDERED: AZITHROMYCIN 250 MG TAB PO STA (01:20)
[2017-10-28] MEDS ORDERED: PANTOprazole SOD 40 MG TAB PO STA (01:20)
--- NOTE | 2017-10-28 01:33 | History and Physical ---
History & Physical Date & Time of Service: Oct 28, 2017 at 01:19 Chief Complaint: 302 Primary Care Physician: Heather Peterson PA-C History of Present Illness Source: patient The patient is a 57 year old male with depression, GERD, chronic back pain who presents to the ED on 302 involuntary admission for concern of a suicide attempt. The patients states that today he was at home watching TV quietly and all of a sudden noticed 7 police officers standing outside his house and wanting to escort him to the ED. He was unclear as to why. He is unclear as to who called the police on him. He states that over the past week has has been coughing, occasionally green sputum. He denies fevers, chills or sweats. He denies any chest pain. He denies taking any medications, drugs or other substances in recent days. He states "I feel fine". He denies any depression or low mood. Denies any thoughts of self-harm or suicide. He does admit to having access to multiple guns in his house. Further collateral from staff in the ED reveal that the patient was escorted by police due to concern of a possible suicide attempt. The reported that earlier in the week he had told her he was battling the flu. However, he later admitted that he was feeling unwell because he had attempted to overdose on medications. It is not clear what medication he took as the patient does not admit to this when I was in the room with him. It is also noted that this patient is exposed to significant psychostressors at home as his son of 26 years old is currently being treated for advanced gastrointestinal malignancy. On arrival to the ED the patient was found to have an ESTELA and transaminitis. The decision was made to admit for medical management. Past Medical/Surgical History GERD Chronic Back Pain Insomnia Depression Family History Cancer Social History Smoking Status: Former Smoker Smokeless Tobacco Use: No Alcohol Use: none Drug Use: none Marital Status: Housing status: lives with family Occupational Status: employed Allergies Coded Allergies: CI Pigment Blue 63 (Verified Allergy, Intermediate, HIVES, BLISTERS, ) Fish Allergy (Verified Allergy, Intermediate, HIVES, FEVER, 01/28/17) Oseltamivir (Verified Allergy, Intermediate, HIVES, BLISTERS, 01/28/17) Tetanus Toxoid (Verified Allergy, Intermediate, FEVER, 01/28/17) Amoxicillin (Verified Allergy, Mild, HIVES, 01/28/17) Lisinopril (Verified Allergy, Mild, HIVES, 01/28/17) Shellfish (Verified Allergy, Mild, ANAPHYLACTIC, 01/28/17) Home Medications Scheduled Amitriptyline HCl (Amitriptyline HCl), 50 MG PO HS Gabapentin (Gabapentin), 600 MG PO QAM Gabapentin (Neurontin), 300 MG PO BID UD Losartan Potassium (Cozaar), 50 MG PO QAM Pantoprazole (Protonix), 40 MG PO HS Sertraline HCl (Sertraline HCl), 50 MG PO QAM Zolpidem Tartrate (Ambien), 10 MG PO HS Scheduled PRN Polyethylene Glycol 3350 (Miralax), 17 GM PO DAILY PRN for Constipation Review of Systems A 10 point review of systems was negative unless stated above. Physical Exam Vital Signs Date Time Temp Pulse Resp B/P (MAP) Pulse Ox O2 Delivery O2 Flow Rate FiO2 10/28/17 01:12 99 18 148/94 95 10/27/17 22:15 110 20 158/79 93 Room Air 10/27/17 20:42 36.6 88 20 156/97 97 Room Air General Appearance: WD/WN, no apparent distress Head: normocephalic, atraumatic, + pertinent finding (Raised lesion, right ear , not noticed previously by the patient) Eyes: normal inspection, EOMI ENT: hearing grossly normal, pharynx normal Neck: supple, no adenopathy, no JVD Respiratory/Chest: chest non-tender, + wheezing (right-sided diffuse mild wheezing) Cardiovascular: regular rate, rhythm, no gallop, no murmur, + tachycardia Abdomen/GI: normal bowel sounds, non tender, no organomegaly Back: no CVA tenderness, no muscle spasm Extremities/Musculoskelatal: no calf tenderness, no pedal edema Neurologic/Psych: alert, normal mood/affect, oriented x 3 Skin: normal color, warm/dry, no rash Lymphatic: no adenopathy Diagnostics Laboratory Results Results Past 24 Hours Test 10/27/17 21:21 10/27/17 21:22 10/27/17 22:10 10/28/17 01:04 Range/Units Sodium Level 134 136-145 mmol/L Potassium Level 3.9 3.5-5.1 mmol/L Chloride Level 100 98-107 mmol/L Carbon Dioxide Level 24 21-32 mmol/L Anion Gap 10.0 3-11 mmol/L Blood Urea Nitrogen 58 7-18 mg/dl Creatinine 2.14 0.60-1.40 mg/dl Est Creatinine Clear Calc Drug Dose 45.0 ml/min Estimated GFR () 37.9 Estimated GFR (Non- 32.7 BUN/Creatinine Ratio 27.2 10-20 Random Glucose 119 70-99 mg/dl Calcium Level 8.5 8.5-10.1 mg/dl Total Bilirubin 0.8 0.2-1 mg/dl Direct Bilirubin 0.2 0-0.2 mg/dl Aspartate Amino Transf (AST/SGOT) 343 15-37 U/L Alanine Aminotransferase (ALT/SGPT) 301 12-78 U/L Alkaline Phosphatase 84 45-117 U/L Total Creatine Kinase 5751 39-308 U/L Troponin I < 0.015 0-0.045 ng/ml Total Protein 8.1 6.4-8.2 gm/dl Albumin 3.0 3.4-5.0 gm/dl Lipase 265 73-393 U/L Salicylates Level 1.8 2.8-20 mg/dl Acetaminophen Level < 2 10-30 ug/ml White Blood Count 14.21 4.8-10.8 K/uL Red Blood Count 5.17 4.7-6.1 M/uL Hemoglobin 16.1 14.0-18.0 g/dL Hematocrit 46.5 42-52 % Mean Corpuscular Volume 89.9 80-100 fL Mean Corpuscular Hemoglobin 31.1 25-34 pg Mean Corpuscular Hemoglobin Concent 34.6 32-36 g/dl Platelet Count 259 130-400 K/uL Mean Platelet Volume 10.0 7.4-10.4 fL RDW Standard Deviation 45.5 36.4-46.3 fL RDW Coefficient of Variation 13.9 11.5-14.5 % Neutrophils % (Manual) 69.0 % Band Neutrophils % (Manual) 0.0 % Lymphocytes % (Manual) 10.0 % Variant Lymphocytes % (manual) 0.0 % Monocytes % (Manual) 13.0 % Eosinophils % (Manual) 2.0 % Metamyelocytes % 1.0 % Myelocytes % 5.0 % Neutrophils # (Manual) 9.80 1.4-6.5 K/uL Total Absolute Neutrophils 9.80 1.4-6.5 K/uL Lymphocytes # (Manual) 1.42 1.2-3.4 K/uL Total Absolute Lymphocytes 1.42 1.2-3.4 K/uL Monocytes # (Manual) 1.85 0.11-0.59 K/uL Eosinophils # (Manual) 0.28 0-0.5 K/uL Metamyelocytes # 0.14 0-0 K/uL Myelocytes # 0.71 0-0 K/uL Percent Large Granular Lymphocytes 0.0 % Toxic Granulation 1+ Toxic Vacuolation 1+ Dohle Bodies 1+ Prothrombin Time 10.4 9.0-12.0 SECONDS Prothromb Time International Ratio 1.0 0.9-1.1 Activated Partial Thromboplast Time 28.7 21.0-31.0 SECONDS Partial Thromboplastin Ratio 1.1 Ethyl Alcohol mg/dL < 3.0 0-3 mg/dl Urine Color DK YELLOW Urine Appearance CLEAR CLEAR Urine pH 5.0 4.5-7.5 Urine Specific [place] 1.021 1.000-1.030 Urine Protein TRACE NEG Urine Glucose (UA) NEG NEG Urine Ketones TRACE NEG Urine Occult Blood NEG NEG Urine Nitrite NEG NEG Urine Bilirubin NEG NEG Urine Urobilinogen NEG NEG Urine Leukocyte Esterase NEG NEG Urine WBC (Auto) 1-5 0-5 /hpf Urine RBC (Auto) 0-4 0-4 /hpf Urine Hyaline Casts (Auto) 10-30 0-5 /lpf Urine Epithelial Cells (Auto) 10-20 0-5 /lpf Urine Bacteria (Auto) NEG NEG Urine Opiates Screen NEG NEG Urine Methadone, Qualitative NEG NEG Urine Barbiturates NEG NEG Urine Phencyclidine (PCP) Level NEG NEG Ur Amphetamine/Methamphetamine NEG NEG MDMA (Ecstasy) Screen NEG NEG Urine Benzodiazepines Screen NEG NEG Urine Cocaine Metabolite NEG NEG Urine Marijuana (THC) NEG NEG Diagnostic Radiology CHEST ONE VIEW PORTABLE CLINICAL HISTORY: Overdose COMPARISON STUDY: Chest radiograph December 30, 2015. FINDINGS: No pneumothorax or pleural effusion is noted. There is asymmetric interstitial thickening within the right lung. There is mild left basilar opacity. Cardiac size is normal. Mediastinal contours are normal. There is no evidence for pulmonary edema. IMPRESSION: Asymmetric interstitial thickening, greater within the right lung. The findings are nonspecific although an infectious process is favored. Radiographic follow up is recommended to ensure resolution. Impression Assessment and Plan 57 year old male admitted on an involuntary basis for suspected attempted suicide, who has concurrent ESTELA, transaminitis and suspected PNA based on examination and radiographic findings Our plan for him is as follows: Depression/Involuntary Admission for Suspected Suicide Attempt - Continue Zoloft and Amitriptyline - Requires 1 to 1 monitoring while admitted - Psychiatry consulted for recommendations on disposition when medically cleared - Toxicology screen negative; suspected ingestion agent unknown. Acute Kidney Injury - Rehydrate with IV NSS + 40 mEq KCl - UA suggests dehydration given high urine SG Rhabdomyolysis - Aggressive IVF - CK is not substantially elevated and is not likely the cause of his ARF although dehydration is further supported - will trend CK Transaminitis - Acute hepatitis Panel - Liver US - Will check for influenza given respiratory Sx as flu can cause acute transaminitis - Tox screen negative; no hepatotoxic medications Suspected PNA - Radiographic findings on right side with right-sided wheezing - Mild leukocytosis supportive - Azithromycin 500 mg PO then 250 mg daily x 4 days - Duonebs q4h scheduled and q2h PRN Skin Lesion Right Ear - Unclear whether related to trauma; denies any physical confrontation with police - Would consider outpatient evaluation by dermatology if not improving Chronic Back Pain - Continue Gabapentin GERD - Continue Pantoprazole HTN - Continue Losartan DVT Prophylaxis - SCD Knee, JOSE C Hose - Heparin 5000 U s.c. TID Code Status - Level I Full Code Disposition - Med/Surg - OT and PT evaluations - Currently here on involuntary basis: 302 form in patient's chart Resident Physician Supervision Note: I was present with Dr. Cruz during the history and exam. I discussed the case with the resident and agree with the findings and plan as documented in the note. Any exceptions or clarifications are listed here: 57 y/o M Hx HTN, GERD, chronic back pain - recent considerable stress due to son with advanced CA - pt may have attempted suicide earlier in week by taking multiple pills - could not elaborate on what pills he may have ingested. He was escorted to the ER against his will due to a 302 order. Initial labs revealed ESTELA, LFT elevations, rhabdo. There is suspicion of RLL PNM on CXR and leukocytosis is present. OE AAO x 3 S1,2 R CTAB NT, ND No CCE No deficits R ear has small lesion P: Provided with IVF as ESTELA may be due to dehydration Placed on PRN nebs and PO abx for suspected PNM Reg his liver enzymes - elevation is minimal - hopefully this is not due to Acetaminophen ingestion earlier in week - may be due to rhabdo - will trend Pt will proceed to psychiatry when medically cleared Documented By: Rajesh Hidalgo Level of Care Med/Surg Resuscitation Status FULL RESUSCITATION VTE Prophylaxis VTE Risk Assessment Done? Y/N: Yes Risk Level: Moderate Given or contraindicated: Unfractionated heparin SQ
[2017-10-28] MEDS ORDERED: POLYETHYLENE (MIRALAX) 17 GM PACK PO PRN (01:45)
[2017-10-28] MEDS: POTASSIUM CHLORIDE INJ 40 MEQ in SODIUM CHLORIDE 0.9% 1000ML 1,000 ML IV SCH ×3 (02:22→13:30)
[2017-10-28 02:59] LABS: INFLUENZA B ANTIGEN Neg for Influ B (NEG)
[2017-10-28] MEDS: HEPARIN SOD 5000 UNIT/0.5 ML CARP SQ SCH ×3 (05:39→20:47)
[2017-10-28] MEDS: ALBUT/IPRATROP 3MG/0.5MG NEB 3 ML VIAL INH SCH ×4 (06:57→20:16)
[2017-10-28 07:40] LABS: HEMATOCRIT 42.4 % (42-52); HEMOGLOBIN 14.6 g/dL (14.0-18.0); MEAN CELL VOLUME 90.8 fL (80-100); MEAN CORPUSCULAR HEMOGLOBIN 31.3 pg (25-34); MEAN CORPUSCULAR HGB CONC 34.4 g/dl (32-36); MEAN PLATELET VOLUME 10.1 fL (7.4-10.4); PLATELET COUNT 215 K/uL (130-400); RED CELL DISTRIBUTION WIDTH CV 13.9 % (11.5-14.5); RED CELL DISTRIBUTION WIDTH SD 46.2 fL (36.4-46.3); WHITE BLOOD COUNT 10.95 K/uL (4.8-10.8)
[2017-10-28] MEDS: LOSARTAN POTASSIUM 50 MG TAB PO SCH (07:45)
[2017-10-28] MEDS: SERTRALINE HCL 50 MG TAB PO SCH (07:46)
[2017-10-28] MEDS: GABAPENTIN 600 MG TAB PO SCH (07:46)
[2017-10-28] MEDS ORDERED: PNEUMOCOCCAL ADMINISTRATION CHARGE ONE (08:00)
[2017-10-28] MEDS ORDERED: PNEUMOCOCCAL POLYSACCHARIDES 25 MCG/0.5 ML VIAL/SYR IM. ONE (08:00)
[2017-10-28 08:20] LABS: ALBUMIN 2.5 gm/dl (3.4-5.0); CREATININE 1.61 mg/dl (0.60-1.40); POTASSIUM 4.2 mmol/L (3.5-5.1)
[2017-10-28 08:43] LABS: TOTAL PROTEIN 6.7 gm/dl (6.4-8.2)
--- NOTE | 2017-10-28 09:03 | Progress Note ---
Progress Note Date of Service Oct 28, 2017. Progress Note Patient seen and examined S: No concerns. Does want to go home. Upset about being brought here by the police. Son is going through Colostomy surgery for stage IV colon cancer. Denies suicidal ideations. O: Vitals reviewed P/E: GENERAL: Patient is awake alert in no acute distress patient is resting comfortably NECK: The neck is nontender and supple. RESPIRATORY: Normal respiratory effort. Mild wheezing at the right mid and lung bases. CARDIOVASCULAR: Regular rate and rhythm noted there no murmurs rubs or gallops normal S1 normal S2 GASTROINTESTINAL: The abdomen is soft. Bowel sounds are present in all quadrants. Abdomen is nontender MUSCULOSKELETAL/EXTREMITIES: There is no evidence of gross deformity full range of motion is noted in the hips and shoulders NEUROLOGIC: Patient is awake alert and oriented x3 strength is symmetric patellar reflexes are 2+ bilaterally A/P 57 year old male admitted on an involuntary basis for suspected attempted suicide, who has concurrent ESTELA, transaminitis and suspected PNA based on examination and radiographic findings Our plan for him is as follows: Depression/Involuntary Admission for Suspected Suicide Attempt - Continue Zoloft and Amitriptyline - Requires 1 to 1 monitoring while admitted - Psychiatry consulted for recommendations on disposition when medically cleared - Toxicology screen negative; suspected ingestion agent unknown. Acute Kidney Injury - Cr improved this morning to 1.6 - Rehydrate with IV NSS + 40 mEq KCl - UA suggests dehydration given high urine SG - avoid nephrotoxic meds Rhabdomyolysis - Aggressive IVF - CK is not substantially elevated and is not likely the cause of his ARF although dehydration is further supported - will trend CK - CK improving Transaminitis - Acute hepatitis Panel pending - Liver US - influenza negative - Tox screen negative; no hepatotoxic medications Suspected PNA - Radiographic findings on right side with right-sided wheezing - Mild leukocytosis supportive - Azithromycin 500 mg PO then 250 mg daily x 4 days - Duonebs q4h scheduled and q2h PRN Skin Lesion Right Ear - Unclear whether related to trauma; denies any physical confrontation with police - Would consider outpatient evaluation by dermatology if not improving Chronic Back Pain - Continue Gabapentin GERD - Continue Pantoprazole HTN - Continue Losartan DVT Prophylaxis - SCD Knee, JOSE C Hose - Heparin 5000 U s.c. TID Code Status - Level I Full Code Disposition - Med/Surg - OT and PT evaluations - Currently here on involuntary basis: 302 form in patient's chart
[2017-10-28 09:34] LABS: HEP C IGG 13 YRS+OLDER_RFLX NEG (NEG)
--- NOTE | 2017-10-28 10:53 | DIAGNOSTIC IMAGING REPORT ---
ABDOMINAL ULTRASOUND, RIGHT UPPER QUADRANT HISTORY: Acute transaminitis. COMPARISON: CT of the abdomen and pelvis January 28, 2017. FINDINGS: This exam is compromised by suboptimal penetration. No hepatic lesions are identified. The common bile duct is partially obscured but there is no convincing evidence for biliary ductal dilatation. The pancreas is obscured by overlying bowel gas. Nonshadowing hypoechoic material within the gallbladder favors sludge. There are no shadowing gallstones. There is no gallbladder wall thickening. There is no right hydronephrosis. IMPRESSION: 1. Suspected sludge within the gallbladder. No gallstones or biliary ductal dilatation. 2. Study moderately compromised by suboptimal penetration. Obscured pancreas due to overlying bowel gas. Electronically signed by: Manuel Nazario M.D. 10/28/2017 10:52 AM Dictated Date/Time: 10/28/2017 10:50 AM
[2017-10-28] MEDS: GABAPENTIN 300 MG CAP PO SCH ×2 (12:05→21:44)
[2017-10-28] MEDS: AZITHROMYCIN 250 MG TAB PO SCH (17:09)
--- NOTE | 2017-10-28 17:40 | Psychiatric Consultation ---
Consultation Date of Consultation Oct 28, 2017. Identifying Data 57 year old male with h/o taking zoloft to take the edge off, unclear dx 'd for zoloft rx'd, who was admitted with ESTELA after 302 petition brought pt to ER with concern of pt being a danger to self and others (family), reported suicide attempt of OD on meds with pt denying Chief Complaint "My son is not expected to live long" "I am here for pneumonia" . History of Present Illness Pt reported being admitted for pneumonia (which is not the reported medical condition). It is reported by that he attempted suicide last week by OD of meds. is concerned and scared that he is a ticking time bomb and that she is setting to obtain a PFA against him for fears of her safety and of their children. She indicated that he has been acting different since their son was dx 'd with cancer 2-3 years ago but that as his son has been told that no further treatment would be of assistance for their 27 yr old son.he has "gone off the deep end." indicated that the teenage son and daughter are scared of him and what he might do. There are about 6-7 guns in the house and per "he's not afraid to use them;. She is very scared that he will find out that she was the petitioner and that he would take it out on her. Pt denied any h/o psychotherapy or psychiatrist care. that he has taken zoloft 50mg for a number of years now with good compliance perhaps missing once a month or so and that it smoothes out the edges for him but does not know the actual dx tied to it being rx'd. He denied having overt s/e to the medication but assumes it must do something negative to his body. He endorsed taking gabapentin 600mg am and 300mg afternoon and 300mg hs. He also takes amitriptyline 50mg hs. The gabapentin and amitriptyline are rx'd by Dr. Keller pain management and zoloft is prescribed by his PCP. He denied any h/o SI or suicidal behaviors or SIB. He denied any h/o of physical aggressive behaviors in at least the past year if not beyond that. He denied acting out anger or being angry with people. He would prefer his son to accept hospice care which pt indicated his son is declining. Pt denied h/o depression in past or current depression out of some sadness over his son's condition and limited life expectancy. He shared that his has stage 4 CKD which is another stressor for them. He denied any h/o psychotic features. He denied any alcohol usage in years but that over 15 plus years ago would drink frequently and heavily. Of note ignacia is on med list in chart but pt did not recognize that medication nor is it noted in [facility] when checked by promotion writer. Pt has had past scripts of opiate pain meds but last processed was January 2017 (as thinks he overdose on Percocet and amitriptyline). Pt denied h/o manic symptoms. Pt endorsed having about 6-7 guns and -that has a gun safe Past Medical/Surgical History History of Concussion/Seizure: No (1) Back pain (2) Sciatica (3) ESTELA (acute kidney injury) (4) Rhabdomyolysis (5) Suicidal ideation Allergies Allergies: Coded Allergies: CI Pigment Blue 63 (Verified Allergy, Intermediate, HIVES, BLISTERS, ) Fish Allergy (Verified Allergy, Intermediate, HIVES, FEVER, 01/28/17) Oseltamivir (Verified Allergy, Intermediate, HIVES, BLISTERS, 01/28/17) Tetanus Toxoid (Verified Allergy, Intermediate, FEVER, 01/28/17) Amoxicillin (Verified Allergy, Mild, HIVES, 01/28/17) Lisinopril (Verified Allergy, Mild, HIVES, 01/28/17) Shellfish (Verified Allergy, Mild, ANAPHYLACTIC, 01/28/17) Home Medications Scheduled Amitriptyline HCl (Amitriptyline HCl), 50 MG PO HS Gabapentin (Gabapentin), 600 MG PO QAM Gabapentin (Neurontin), 300 MG PO BID UD Losartan Potassium (Cozaar), 50 MG PO QAM Pantoprazole (Protonix), 40 MG PO HS Sertraline HCl (Sertraline HCl), 50 MG PO QAM Zolpidem Tartrate (Ambien), 10 MG PO HS Scheduled PRN Polyethylene Glycol 3350 (Miralax), 17 GM PO DAILY PRN for Constipation Family History Cancer Alcohol Use Alcohol Use In Past 12 Months: No pt denied alcohol usage to promotion writer, although to psych consult liason nurse Alvaro it appear s he acknowledge drinking in that "I drink like everybody does but not too much" Smoking Use Smoking Status: Former Smoker Substance History denied other substance usage Personal History Lives in: [place] Childhood: [place] Work History: [employer] for past 16 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 , 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 Relationship History: Children: 12 yr old Duaghter and 16 year old son and 27 year old son Spiritual Affiliation: "i believe in the Lord" Legal History: none Psychological Trauma History: Denies Hx Traumatic Event (besides son's dx and limited life expectancy ) Additional Comments: living with , children, with 27 yr old son and his gf living in apartment within the house Review of Systems Respiratory: reports: cough Examination Vital Signs Vital Signs Past 12 Hours Date Time Temp Pulse Resp B/P (MAP) Pulse Ox O2 Delivery O2 Flow Rate FiO2 10/28/17 14:54 108 16 97 Room Air 10/28/17 13:58 36.6 112 20 124/76 (92) 97 10/28/17 11:41 103 16 95 Room Air 10/28/17 08:00 Room Air 10/28/17 06:57 100 16 95 Room Air 10/28/17 06:55 36.4 102 20 131/75 (93) 96 Room Air Laboratory Results Last 24 Hours Test 10/27/17 21:21 10/27/17 21:22 10/27/17 22:10 10/28/17 01:55 Sodium Level 134 mmol/L Potassium Level 3.9 mmol/L Chloride Level 100 mmol/L Carbon Dioxide Level 24 mmol/L Anion Gap 10.0 mmol/L Blood Urea Nitrogen 58 mg/dl Creatinine 2.14 mg/dl Est Creatinine Clear Calc Drug Dose 45.0 ml/min Estimated GFR () 37.9 Estimated GFR (Non- 32.7 BUN/Creatinine Ratio 27.2 Random Glucose 119 mg/dl Calcium Level 8.5 mg/dl Total Bilirubin 0.8 mg/dl Direct Bilirubin 0.2 mg/dl Aspartate Amino Transf (AST/SGOT) 343 U/L Alanine Aminotransferase (ALT/SGPT) 301 U/L Alkaline Phosphatase 84 U/L Total Creatine Kinase 5751 U/L Troponin I < 0.015 ng/ml Total Protein 8.1 gm/dl Albumin 3.0 gm/dl Lipase 265 U/L Salicylates Level 1.8 mg/dl Acetaminophen Level < 2 ug/ml White Blood Count 14.21 K/uL Red Blood Count 5.17 M/uL Hemoglobin 16.1 g/dL Hematocrit 46.5 % Mean Corpuscular Volume 89.9 fL Mean Corpuscular Hemoglobin 31.1 pg Mean Corpuscular Hemoglobin Concent 34.6 g/dl Platelet Count 259 K/uL Mean Platelet Volume 10.0 fL RDW Standard Deviation 45.5 fL RDW Coefficient of Variation 13.9 % Neutrophils % (Manual) 69.0 % Band Neutrophils % (Manual) 0.0 % Lymphocytes % (Manual) 10.0 % Variant Lymphocytes % (manual) 0.0 % Monocytes % (Manual) 13.0 % Eosinophils % (Manual) 2.0 % Metamyelocytes % 1.0 % Myelocytes % 5.0 % Neutrophils # (Manual) 9.80 K/uL Total Absolute Neutrophils 9.80 K/uL Lymphocytes # (Manual) 1.42 K/uL Total Absolute Lymphocytes 1.42 K/uL Monocytes # (Manual) 1.85 K/uL Eosinophils # (Manual) 0.28 K/uL Metamyelocytes # 0.14 K/uL Myelocytes # 0.71 K/uL Percent Large Granular Lymphocytes 0.0 % Toxic Granulation 1+ Toxic Vacuolation 1+ Dohle Bodies 1+ Prothrombin Time 10.4 SECONDS Prothromb Time International Ratio 1.0 Activated Partial Thromboplast Time 28.7 SECONDS Partial Thromboplastin Ratio 1.1 Ethyl Alcohol mg/dL < 3.0 mg/dl Urine Color DK YELLOW Urine Appearance CLEAR Urine pH 5.0 Urine Specific [place] 1.021 Urine Protein TRACE Urine Glucose (UA) NEG Urine Ketones TRACE Urine Occult Blood NEG Urine Nitrite NEG Urine Bilirubin NEG Urine Urobilinogen NEG Urine Leukocyte Esterase NEG Urine WBC (Auto) 1-5 /hpf Urine RBC (Auto) 0-4 /hpf Urine Hyaline Casts (Auto) 10-30 /lpf Urine Epithelial Cells (Auto) 10-20 /lpf Urine Bacteria (Auto) NEG Urine Opiates Screen NEG Urine Methadone, Qualitative NEG Urine Barbiturates NEG Urine Phencyclidine (PCP) Level NEG Ur Amphetamine/Methamphetamine NEG MDMA (Ecstasy) Screen NEG Urine Benzodiazepines Screen NEG Urine Cocaine Metabolite NEG Urine Marijuana (THC) NEG Influenza Type A Antigen Neg for Influ A Influenza Type B Antigen Neg for Influ B Test 10/28/17 07:09 10/28/17 13:10 White Blood Count 10.95 K/uL Red Blood Count 4.67 M/uL Hemoglobin 14.6 g/dL Hematocrit 42.4 % Mean Corpuscular Volume 90.8 fL Mean Corpuscular Hemoglobin 31.3 pg Mean Corpuscular Hemoglobin Concent 34.4 g/dl RDW Standard Deviation 46.2 fL RDW Coefficient of Variation 13.9 % Platelet Count 215 K/uL Mean Platelet Volume 10.1 fL Sodium Level 137 mmol/L Potassium Level 4.2 mmol/L Chloride Level 104 mmol/L Carbon Dioxide Level 24 mmol/L Anion Gap 8.0 mmol/L Blood Urea Nitrogen 46 mg/dl Creatinine 1.61 mg/dl Est Creatinine Clear Calc Drug Dose 58.6 ml/min Estimated GFR () 53.5 Estimated GFR (Non- 46.1 BUN/Creatinine Ratio 28.8 Random Glucose 98 mg/dl Calcium Level 8.0 mg/dl Total Bilirubin 0.7 mg/dl Direct Bilirubin 0.2 mg/dl Aspartate Amino Transf (AST/SGOT) 186 U/L Alanine Aminotransferase (ALT/SGPT) 214 U/L Alkaline Phosphatase 66 U/L Total Creatine Kinase 2926 U/L 2390 U/L Total Protein 6.7 gm/dl Albumin 2.5 gm/dl Hepatitis B Surface Antigen NEG Hepatitis C Antibody Screen NEG Hepatitis C Antibody NEG Mental Examination During interview pt is: other (denying any psychiatric symptoms besides sadness over son's prognosis, not oriented to date of month but otherwise oriented) Appearance: other (hospital gown) Eye contact is: good Motor behavior is: no abnormal motor movements Speech: normal in rate, rhythm & volume Affect: mood congruent Mood is: other (sad) Thought process: goal directed, linear, logical Thought content: other (likely minimization ) Suicidal thought are: denied Homicidal thoughts are: denied Hallucinations: denies auditory, denies visual Cognition: memory grossly intact, language grossly intact, other ( concentration impaired, world backwards switched o and r, unable to do serial 7 's beyond 86) Intelligence estimated to be: average Insight: impaired Judgement: impaired Impression / Recommendations Impression ESTELA, elevated CK reproted recent suicide attempt of OD on pills pt denying 302 petition for Suicidal concerns and concerns about possible explosive behaviors with scared for his,her and children's safety Risk Factors Assessment Male: Yes : Yes Access to guns: Yes Health problems: Yes Previous attempt: No Previous psychiatric stay: No Smoker: No Recommendations (1) Suicidal ideation pt on a 302 and involuntary admitted currently on medical floor, CK elevation but improving and dehydration could be a main factor in ESTELA per today's medical PN pt has some impaired concentration. do want to clarify pt's drinking history given potential minimization. does need psychiatric inpt treatment once medically cleared given petitioner's information. at this time pt is not aware of who petitioner is
[2017-10-28] MEDS: AMITRIPTYLINE HCL 50 MG TAB PO SCH ×2 (21:44→22:32)
[2017-10-28] MEDS: PANTOprazole SOD 40 MG TAB PO SCH (21:44)
[2017-10-28] MEDS: ZOLPIDEM TARTRATE 10 MG TAB PO SCH (22:35)
[2017-10-29 05:37] LABS: HEMATOCRIT 37.4 % (42-52); HEMOGLOBIN 12.6 g/dL (14.0-18.0); MEAN CELL VOLUME 91.4 fL (80-100); MEAN CORPUSCULAR HEMOGLOBIN 30.8 pg (25-34); MEAN CORPUSCULAR HGB CONC 33.7 g/dl (32-36); MEAN PLATELET VOLUME 9.8 fL (7.4-10.4); PLATELET COUNT 213 K/uL (130-400); RED CELL DISTRIBUTION WIDTH SD 46.8 fL (36.4-46.3); WHITE BLOOD COUNT 9.67 K/uL (4.8-10.8)
[2017-10-29] MEDS: HEPARIN SOD 5000 UNIT/0.5 ML CARP SQ SCH ×3 (06:00→21:53)
[2017-10-29 06:14] VITALS: BP 145/85; PULSE 99; TEMP 36.8; O2SAT 99
[2017-10-29 06:21] LABS: ALBUMIN 2.3 gm/dl (3.4-5.0); CALCIUM 7.7 mg/dl (8.5-10.1); CREATININE 1.4 mg/dl (0.60-1.40); POTASSIUM 4.7 mmol/L (3.5-5.1)
[2017-10-29 07:27] VITALS: PULSE 99; O2SAT 95
[2017-10-29] MEDS: ALBUT/IPRATROP 3MG/0.5MG NEB 3 ML VIAL INH SCH (07:27)
[2017-10-29] MEDS: LOSARTAN POTASSIUM 50 MG TAB PO SCH (07:37)
[2017-10-29] MEDS: GABAPENTIN 600 MG TAB PO SCH (07:38)
[2017-10-29] MEDS: SERTRALINE HCL 50 MG TAB PO SCH (07:38)
[2017-10-29] MEDS ORDERED: NURSING DECISION MEDICATION ORDER SCH (09:15)
[2017-10-29] MEDS ORDERED: ALBUT/IPRATROP 3MG/0.5MG NEB 3 ML VIAL INH PRN (09:30)
[2017-10-29] MEDS ORDERED: GUAIFENESIN/CODEINE 100MG/10MG 5ML UDC PO PRN (09:30)
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
[2017-10-29] MEDS: GABAPENTIN 300 MG CAP PO SCH ×2 (12:10→21:51)
[2017-10-29] MEDS ORDERED: COUGH DROP (SUGAR FREE) LOZ 24 LOZ/1 BOX LOZ PRN (12:30)
[2017-10-29] MEDS ORDERED: CHLORASEPTIC 1.4% SOLN 180 ML BTL MT PRN (12:45)
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
[2017-10-29 15:09] VITALS: BP 144/77; PULSE 102; TEMP 36.8; O2SAT 97
[2017-10-29] MEDS: AZITHROMYCIN 250 MG TAB PO SCH (18:05)
[2017-10-29] MEDS: SODIUM CHLORIDE 0.9% 1000ML 1,000 ML IV SCH ×2 (18:05→21:55)
[2017-10-29] MEDS: ZOLPIDEM TARTRATE 10 MG TAB PO SCH (21:51)
[2017-10-29] MEDS: AMITRIPTYLINE HCL 50 MG TAB PO SCH (21:51)
[2017-10-29] MEDS: PANTOprazole SOD 40 MG TAB PO SCH (21:52)
[2017-10-29 22:53] VITALS: BP 151/79; PULSE 120; TEMP 37.6; O2SAT 93
[2017-10-30 05:08] LABS: HEPATITIS A IGM TC 51813E NON-REACTIVE (NON-REACTIVE); HEPATITIS B CORE IGM TC51854R NON-REACTIVE (NON-REACTIVE)
[2017-10-30] MEDS: HEPARIN SOD 5000 UNIT/0.5 ML CARP SQ SCH ×3 (05:34→22:00)
[2017-10-30 07:16] VITALS: BP 156/89; PULSE 97; TEMP 37; O2SAT 95
[2017-10-30 07:32] LABS: HEMATOCRIT 37.9 % (42-52); HEMOGLOBIN 12.6 g/dL (14.0-18.0); MEAN CELL VOLUME 91.3 fL (80-100); MEAN CORPUSCULAR HEMOGLOBIN 30.4 pg (25-34); MEAN CORPUSCULAR HGB CONC 33.2 g/dl (32-36); MEAN PLATELET VOLUME 9.9 fL (7.4-10.4); PLATELET COUNT 245 K/uL (130-400); RED CELL DISTRIBUTION WIDTH CV 13.8 % (11.5-14.5); RED CELL DISTRIBUTION WIDTH SD 45.8 fL (36.4-46.3); WHITE BLOOD COUNT 10.49 K/uL (4.8-10.8)
[2017-10-30 08:00] VITALS: O2SAT 95
[2017-10-30 08:10] LABS: ALBUMIN 2.1 gm/dl (3.4-5.0); CREATININE 1.22 mg/dl (0.60-1.40); POTASSIUM 4.1 mmol/L (3.5-5.1)
[2017-10-30 08:13] LABS: TOTAL PROTEIN 5.8 gm/dl (6.4-8.2)
[2017-10-30] MEDS: SERTRALINE HCL 50 MG TAB PO SCH (08:45)
[2017-10-30] MEDS: GABAPENTIN 600 MG TAB PO SCH (08:45)
[2017-10-30] MEDS: LOSARTAN POTASSIUM 50 MG TAB PO SCH (08:45)
[2017-10-30] MEDS ORDERED: NEOMYCIN/POLYMYX/BACITR OINT 15 GM TUBE EXT ONE (10:44)
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
[2017-10-30] MEDS: GABAPENTIN 300 MG CAP PO SCH ×2 (13:17→21:59)
[2017-10-30 15:21] VITALS: BP 132/80; PULSE 114; TEMP 36.9; O2SAT 93
[2017-10-30] MEDS: AZITHROMYCIN 250 MG TAB PO SCH (17:29)
[2017-10-30] MEDS: ZOLPIDEM TARTRATE 10 MG TAB PO SCH (21:59)
[2017-10-30] MEDS: PANTOprazole SOD 40 MG TAB PO SCH (22:00)
[2017-10-30] MEDS: AMITRIPTYLINE HCL 50 MG TAB PO SCH (22:00)
[2017-10-30 22:59] VITALS: BP 138/87; PULSE 111; TEMP 36.9; O2SAT 93
[2017-10-31] MEDS: HEPARIN SOD 5000 UNIT/0.5 ML CARP SQ SCH (06:00)
[2017-10-31 07:02] VITALS: BP 155/86; PULSE 101; TEMP 36.7; O2SAT 95
[2017-10-31 08:00] VITALS: O2SAT 95
[2017-10-31] MEDS ORDERED: NEOMYCIN/POLYMYX/BACITR OINT 15 GM TUBE EXT SCH (08:00)
[2017-10-31] MEDS: GABAPENTIN 600 MG TAB PO SCH (08:25)
[2017-10-31] MEDS: SERTRALINE HCL 50 MG TAB PO SCH (08:25)
[2017-10-31] MEDS: LOSARTAN POTASSIUM 50 MG TAB PO SCH (08:26)
[2017-10-31 10:10] LABS: CALCIUM 8.6 mg/dl (8.5-10.1); CREATININE 1.31 mg/dl (0.60-1.40); POTASSIUM 3.8 mmol/L (3.5-5.1)
[2017-10-31] MEDS ORDERED: NSPO EXT (11:29)
[2017-10-31] MEDS ORDERED: IPRA1AER2 INH (11:29)
--- NOTE | 2017-10-31 11:50 | Discharge Instructions ---
Discharge Instructions Date of Service Oct 31, 2017. Admission Reason for Admission: Cong, Concern About Becoming Suicidal W/O Diagnosis Discharge Discharge Diagnosis / Problem: dehydration and rhabdomyolysis--> resolved Discharge Goals Goal(s): Therapeutic intervention Activity Recommendations Activity Limitations: as noted below Lifting Limitations: gradually increase as tolerated . Instructions / Follow-Up Instructions / Follow-Up Please follow wound care instructions for the patients inner knee wounds Please apply antibiotic ointment or similar to the right eat once a day and as needed for dryness Current Hospital Diet Patient's current hospital diet: Regular Diet Discharge Diet Recommended Diet: Regular Diet Pending Studies Studies pending at discharge: no Medical Emergencies . Who to Call and When: Medical Emergencies: If at any time you feel your situation is an emergency, please call 911 immediately. . Non-Emergent Contact Non-Emergency issues call your: Primary Care Provider Call Non-Emergent contact if: temperature is above 101, your pain is unusual for you . . "Provider Documentation" section prepared by Garret Vinson. . VTE Core Measure Inpt VTE Proph given/why not?: Unfractionated heparin SQ
[2017-10-31 12:36] VITALS: BP 155/86; PULSE 101; TEMP 36.7; O2SAT 95
[2017-10-31] MEDS: GABAPENTIN 300 MG CAP PO SCH (12:54)
--- NOTE | 2017-10-31 19:29 | Discharge Summary ---
Discharge Summary Date of Service Oct 31, 2017. Discharge Summary Admission Date: Oct 28, 2017 at 00:50 Discharge Date: Oct 31, 2017 Discharge Disposition: Acute care mental health Principal Diagnosis: dehydration, rhabdomyolysis Medication Reconciliation New Medications: Ipratropium-Albuterol (Combivent Respimat) 1 Aer Aer 1 PUFFS INH QID, #1 INH *Neomycin/Polymyx/Bacitr (Triple Antibiotic) 45 Appln/15 Gm Oin 1 APPLN EXT DAILY, #1 TUBE apply to inner knees and ear, also alter and do what wound care recommends after they see patient Continued Medications: Amitriptyline HCl (Amitriptyline HCl) 50 Mg Tab 50 MG PO HS Gabapentin (Gabapentin) 300 Mg Cap 600 MG PO QAM Gabapentin (Neurontin) 300 Mg Cap 300 MG PO BID UD, CAP 1 TAB @ LUNCH, 1 TAB @ HS Losartan Potassium (Cozaar) 50 Mg Tab 50 MG PO QAM, TAB Pantoprazole (Protonix) 40 Mg Tab 40 MG PO HS, #30 TAB Polyethylene Glycol 3350 (Miralax) 1 Pow Pow 17 GM PO DAILY PRN for Constipation, #255 GM Sertraline HCl (Sertraline HCl) 50 Mg Tab 50 MG PO QAM Zolpidem Tartrate (Ambien) 10 Mg Tab 10 MG PO HS, TAB Discharge Exam Review of Systems: Constitutional: No fever, No chills, No weakness Respiratory: No cough, No shortness of breath, No dyspnea on exertion Cardiovascular: No chest pain, No edema Abdomen: No pain, No nausea, No vomiting, No diarrhea Musculoskeletal: No joint pain, No swelling Physical Exam: General Appearance: WD/WN, no apparent distress Eyes: normal inspection, sclerae normal Neck: supple, no JVD Respiratory/Chest: chest non-tender, lungs clear, normal breath sounds Cardiovascular: regular rate, rhythm, no murmur Abdomen / GI: normal bowel sounds, soft Hospital Course 57 y/o male with a history of HTN, anxiety/depression, chronic back pain, and GERD who presents for involuntary admission (302) due to suspected suicide attempt. On admission, patient also found to be in acute renal failure with rhabdomyolysis. this has resolved and pt agrees to inpatient psychiatric care Suspected suicide attempt/ideations, depression, anxiety, involuntary admission PT voluntarily signed into inpatient psychiatry -Tox screen negative -Reviewed PDMP as believed he took oxycodone. No narcotics filled in [place] since January 2017 ARF, rhabdomyolysis--resolved Cough, sore throat, possible PNA--finished z pack Transaminitis--improving - Liver ultrasound with sludge in gallbladder, - Influenza negative - Tox screen negative; no hepatotoxic medications HTN--losartan 50 mg PO qd Skin Lesion Right Ear, and b/l inner thigh wounds, wound care to see, antibiotic ointment and local care Chronic Back Paincontrolled with gabapentin 600 mg PO qam, 300 mg noon and 300 mg hs GERD Pantoprazole Code Status - Level I Full Code Total Time Spent: Greater than 30 minutes This includes examination of the patient, discharge planning, medication reconciliation, and communication with other providers. Discharge Instructions Please refer to the electronic Patient Visit Report (Discharge Instructions) for additional information.
== END 2017-10-31 13:19 | DRG 682 ==
LOC: C.EDB 20:41 → C.MS4W 10-28 00:50 → ENRESERV 10-28 01:02
PROVIDERS: ADMIT Student in an Organized Health Care Education/Training Program; ATTEND Internal Medicine
DX: N17.9 Acute kidney failure, unspecified (principal); J18.9 Pneumonia, unspecified organism; R45.851 Suicidal ideations; M62.82 Rhabdomyolysis; F32.9 Major depressive disorder, single episode, unspecified; F41.9 Anxiety disorder, unspecified; E86.0 Dehydration; R74.0 Nonspecific elevation of levels of transaminase and lactic acid dehydrogenase [LDH]; L98.9 Disorder of the skin and subcutaneous tissue, unspecified; I10 Essential (primary) hypertension; K21.9 Gastro-esophageal reflux disease without esophagitis; M54.9 Dorsalgia, unspecified; G89.29 Other chronic pain; Z79.899 Other long term (current) drug therapy; Z88.1 Allergy status to other antibiotic agents; Z88.8 Allergy status to other drugs, medicaments and biological substances; Z88.7 Allergy status to serum and vaccine; Z91.013 Allergy to seafood; Z87.891 Personal history of nicotine dependence

== ENCOUNTER 2017-10-31 13:19 | Inpatient (IN) | payer OTHER ==
[~2017-10-31] VITALS: Ht 180.3 cm; Wt 100.6 kg
[~2017-10-31 13:19] MED LIST changes: +AMT/50 PO; +GABA-1219 PO; -HYDR25TA4 PO; +IPRA1AER2 INH; +NSPO EXT
[2017-10-31] MEDS ORDERED: hydrOXYzine HCL 25 MG TAB PO PRN ×2 (13:30)
[2017-10-31] MEDS ORDERED: ALUMINUM/MAGNESIUM SUSP 30 ML UDC PO PRN (13:30)
[2017-10-31] MEDS ORDERED: BISMUTH SUBSALICYLATE PER ML OMNICELL CHARGE PO PRN (13:30)
[2017-10-31] MEDS ORDERED: SODIUM CHLORIDE 0.65% NA SOLN 45 ML (OCEAN) PRN (13:30)
[2017-10-31] MEDS ORDERED: MAGNESIUM HYDROXIDE SUSP 30 ML UDC PO PRN (13:30)
[2017-10-31] MEDS ORDERED: ACETAMINOPHEN 325 MG TAB PO PRN (13:30)
[2017-10-31] MEDS ORDERED: PATIENT'S HEIGHT AND/OR WEIGHT NEEDED SCH (13:45)
[2017-10-31 14:22] VITALS: BP 154/93; PULSE 120; TEMP 36.9; BMI 30.9
[2017-10-31] MEDS: GABAPENTIN 300 MG CAP PO SCH ×2 (15:39→20:38)
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
[2017-10-31] MEDS: IPRATROPIUM BROMIDE/ALBUTEROL respimat INH INH SCH ×2 (17:07→21:44)
[2017-10-31] MEDS: PANTOprazole SOD 40 MG TAB PO SCH (21:44)
[2017-10-31] MEDS ORDERED: AMITRIPTYLINE HCL 50 MG TAB PO SCH (22:00)
[2017-11-01 06:54] VITALS: BP_SYST 158; BP_SYST 165; BP_DIAS 101; BP_DIAS 91; PULSE 102; TEMP 37
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
[2017-11-01] MEDS ORDERED: SERTRALINE HCL 100 MG TAB PO SCH (09:00)
[2017-11-01] MEDS ORDERED: SERTRALINE HCL 50 MG TAB PO SCH (09:00)
[2017-11-01] MEDS: LOSARTAN POTASSIUM 50 MG TAB PO SCH (09:06)
[2017-11-01] MEDS: GABAPENTIN 300 MG CAP PO SCH ×3 (09:09→20:47)
[2017-11-01] MEDS: SERTRALINE HCL 100 MG TAB PO SCH (09:09)
[2017-11-01] MEDS: IPRATROPIUM BROMIDE/ALBUTEROL respimat INH INH SCH ×4 (09:11→21:36)
[2017-11-01 09:37] VITALS: BP 131/83; PULSE 105
[2017-11-01 12:13] LABS: ALBUMIN 2.6 gm/dl (3.4-5.0); ALKALINE PHOSPHATASE 67 U/L (45-117); ALT/SGPT 99 U/L (12-78); AST/SGOT 51 U/L (15-37); TOTAL PROTEIN 7.2 gm/dl (6.4-8.2)
[2017-11-01] MEDS: NEOMYCIN/POLYMYX/BACITR OINT 15 GM TUBE EXT SCH (13:00)
[2017-11-01 17:00] VITALS: Ht 180.3 cm; Wt 100.6 kg
[2017-11-01] MEDS: PANTOprazole SOD 40 MG TAB PO SCH (21:36)
[2017-11-02 06:52] VITALS: BP_SYST 174; BP_SYST 188; BP_DIAS 106; BP_DIAS 93; PULSE 105; PULSE 106; TEMP 36.9
[2017-11-02] MEDS: LOSARTAN POTASSIUM 50 MG TAB PO SCH (08:04)
[2017-11-02] MEDS: SERTRALINE HCL 100 MG TAB PO SCH (08:05)
[2017-11-02] MEDS: GABAPENTIN 300 MG CAP PO SCH ×3 (08:05→21:16)
[2017-11-02] MEDS: IPRATROPIUM BROMIDE/ALBUTEROL respimat INH INH SCH ×4 (08:07→21:16)
[2017-11-02] MEDS: NEOMYCIN/POLYMYX/BACITR OINT 15 GM TUBE EXT SCH (08:10)
--- NOTE | 2017-11-02 10:18 | Psych Management Progress Note ---
Psychiatry Miscellaneous Date of Service: Nov 02, 2017. Patient seen, MS assessed. Rates mood as 9/10. Encouraged cooperation with care and treatment plan as outlined by allied health prescriber. He wants to work out "legal stuff" referring to his PFA and will be having a meeting with his friend angelica. Need to clarify housing. He appears much improved, more animated than during my last contact with him on the med floor.
[2017-11-02] MEDS: HYDROCHLOROTHIAZIDE 25 MG TAB PO SCH (10:47)
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
[2017-11-02] MEDS: PANTOprazole SOD 40 MG TAB PO SCH (21:16)
[2017-11-03 06:38] VITALS: BP_SYST 131; BP_SYST 143; BP_DIAS 86; BP_DIAS 89; PULSE 112; PULSE 116; TEMP 36.6
[2017-11-03] MEDS: HYDROCHLOROTHIAZIDE 25 MG TAB PO SCH (08:34)
[2017-11-03] MEDS: LOSARTAN POTASSIUM 50 MG TAB PO SCH (08:34)
[2017-11-03] MEDS: SERTRALINE HCL 100 MG TAB PO SCH (08:34)
[2017-11-03] MEDS: GABAPENTIN 300 MG CAP PO SCH ×3 (08:34→21:18)
[2017-11-03] MEDS: NEOMYCIN/POLYMYX/BACITR OINT 15 GM TUBE EXT SCH (08:35)
[2017-11-03] MEDS: IPRATROPIUM BROMIDE/ALBUTEROL respimat INH INH SCH ×4 (08:41→21:18)
[2017-11-03 10:22] VITALS: TEMP 36.6
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
[2017-11-03] MEDS: PANTOprazole SOD 40 MG TAB PO SCH (21:18)
[2017-11-04 06:32] VITALS: BP_SYST 104; BP_SYST 120; BP_DIAS 77; BP_DIAS 88; PULSE 114; PULSE 116; TEMP 36.6
[2017-11-04] MEDS: NEOMYCIN/POLYMYX/BACITR OINT 15 GM TUBE EXT SCH (07:56)
[2017-11-04] MEDS: IPRATROPIUM BROMIDE/ALBUTEROL respimat INH INH SCH ×4 (07:56→20:52)
[2017-11-04] MEDS: GABAPENTIN 300 MG CAP PO SCH ×3 (07:57→20:51)
[2017-11-04] MEDS: HYDROCHLOROTHIAZIDE 25 MG TAB PO SCH (07:57)
[2017-11-04] MEDS: SERTRALINE HCL 100 MG TAB PO SCH (07:58)
[2017-11-04] MEDS: LOSARTAN POTASSIUM 50 MG TAB PO SCH (07:58)
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
[2017-11-04 18:21] VITALS: TEMP 36.8
[2017-11-04] MEDS: PANTOprazole SOD 40 MG TAB PO SCH (20:51)
[2017-11-05 06:45] VITALS: BP_SYST 111; BP_SYST 121; BP_DIAS 74; BP_DIAS 77; PULSE 94; PULSE 98; TEMP 36.9
[2017-11-05] MEDS: IPRATROPIUM BROMIDE/ALBUTEROL respimat INH INH SCH ×2 (08:14→12:36)
[2017-11-05] MEDS: LOSARTAN POTASSIUM 50 MG TAB PO SCH (08:14)
[2017-11-05] MEDS: GABAPENTIN 300 MG CAP PO SCH ×2 (08:15→12:36)
[2017-11-05] MEDS: HYDROCHLOROTHIAZIDE 25 MG TAB PO SCH (08:15)
[2017-11-05] MEDS: SERTRALINE HCL 100 MG TAB PO SCH (08:16)
[2017-11-05] MEDS: NEOMYCIN/POLYMYX/BACITR OINT 15 GM TUBE EXT SCH (08:25)
--- NOTE | 2017-11-05 08:46 | Wound Consultation: Inpatient ---
Wound Consultation Date of Consultation: Nov 02, 2017. Attending Physician: Nuria Merino MD Reason for Consultation: Multiple pressure ulcerations. History of Present Illness Patient was recently admitted for psychiatric evaluation of depression and suicidal ideation. Patient states that he took an overdose of OxyContin and laid on a floor for an undetermined period of time possibly 2 days. Patient does not remember exactly the circumstances. Patient states she does have some discomfort in both knee areas in his right ear where wounds have occurred. Patient currently denies any fever chills or night sweats. Patient denies any chest pain shortness of breath abdominal discomfort nausea or vomiting. Patient denies any other systemic complaints at this time. Family History Cancer Social History Smoking Status: Former Smoker (Quit over 27 years ago.) Drug Use: none Marital Status: Housing Status: lives with family Occupation Status: employed Allergies Coded Allergies: CI Pigment Blue 63 (Verified Allergy, Intermediate, HIVES, BLISTERS, ) Fish Allergy (Verified Allergy, Intermediate, HIVES, FEVER, 01/28/17) Oseltamivir (Verified Allergy, Intermediate, HIVES, BLISTERS, 01/28/17) Tetanus Toxoid (Verified Allergy, Intermediate, FEVER, 01/28/17) Amoxicillin (Verified Allergy, Mild, HIVES, 01/28/17) Lisinopril (Verified Allergy, Mild, HIVES, 01/28/17) Shellfish (Verified Allergy, Mild, ANAPHYLACTIC, 01/28/17) Home Medications Scheduled *Neomycin/Polymyx/Bacitr (Triple Antibiotic), 1 APPLN EXT DAILY Amitriptyline HCl (Amitriptyline HCl), 50 MG PO HS Gabapentin (Gabapentin), 600 MG PO QAM Gabapentin (Neurontin), 300 MG PO BID UD Ipratropium-Albuterol (Combivent Respimat), 1 PUFFS INH QID Losartan Potassium (Cozaar), 50 MG PO QAM Pantoprazole (Protonix), 40 MG PO HS Sertraline HCl (Sertraline HCl), 50 MG PO QAM Scheduled PRN Polyethylene Glycol 3350 (Miralax), 17 GM PO DAILY PRN for Constipation Inpatient Medications Current Inpatient Medications Medications (Trade) Dose Ordered Sig/John Route Start Time Stop Time Status Last Admin Dose Admin Acetaminophen (Tylenol Tab) 650 mg Q4H PRN PO 10/31/17 13:30 11/30/17 13:29 11/04/17 21:02 650 MG Bismuth Subsalicylate (Kaopectate Liqd) 15 ml PRN PRN PO 10/31/17 13:30 11/30/17 13:29 Al Hydroxide/Mg Hydroxide (Maalox Susp) 30 ml Q4H PRN PO 10/31/17 13:30 11/30/17 13:29 Magnesium Hydroxide (Milk Of Magnesia Susp) 30 ml DAILY PRN PO 10/31/17 13:30 11/30/17 13:29 Sodium Chloride ([place]edar Nasal [place]) PRN PRN NA 10/31/17 13:30 11/30/17 13:29 Hydroxyzine HCl (Vistaril Tab) 50 mg HSZ PRN PO 10/31/17 13:30 11/30/17 13:29 Hydroxyzine HCl (Vistaril Tab) 25 mg Q4H PRN PO 10/31/17 13:30 11/30/17 13:29 Neomycin/ Polymyxin/ Bacitracin (Neosporin Oint) 1 appln DAILY EXT 11/01/17 09:00 12/01/17 08:59 11/05/17 08:25 1 APPLN Gabapentin (Neurontin Cap) 600 mg QAM PO 11/01/17 09:00 12/01/17 08:59 11/05/17 08:15 600 MG Gabapentin (Neurontin Cap) 300 mg BID@1200,2100 PO 10/31/17 13:45 11/30/17 13:44 11/04/17 20:51 300 MG Albuterol/ Ipratropium (Combivent Respimat Inh) 1 puffs QID INH 10/31/17 17:00 11/30/17 16:59 11/05/17 08:14 1 PUFFS Losartan Potassium (coZAAR TAB) 50 mg QAM PO 11/01/17 09:00 12/01/17 08:59 11/05/17 08:14 50 MG Pantoprazole Sodium (Protonix Tab) 40 mg HS PO 10/31/17 22:00 11/30/17 21:59 11/04/17 20:51 40 MG Sertraline HCl (Zoloft Tab) 75 mg QAM PO 11/01/17 09:00 12/01/17 08:59 2/26/18 08:16 75 MG Hydrochlorothiazide (Hydrochlorothiazide Tab) 25 mg QAM PO 11/02/17 09:00 12/02/17 08:59 11/05/17 08:15 25 MG Doxycycline Hyclate (Vibramycin Cap) 100 mg BID PO 11/05/17 09:00 11/14/17 08:59 11/05/17 08:15 100 MG Physical Exam Date Time Temp Pulse Resp B/P (MAP) Pulse Ox O2 Delivery O2 Flow Rate FiO2 11/05/17 06:45 36.9 98 16 121/77 94 111/74 11/04/17 18:21 36.8 General: The patient is sitting on examination table in the hospital in no distress. Alert, cooperative and appropriate to all questions. HEENT: Pupils equal and reactive to light. Sclera clear, EOM intact. There is a small unstageable pressure ulcer to the right ear measuring 0.6 x 0.7 x 0 point. Eschar formation is noted. No active drainage or periwound erythema is present. No significant pain to palpation is noted. Neck: Supple, No JVD noted Chest: CTA in all mcclain. No deformity Heart: RRR without murmurs, S3, S4, thrills, rubs or heaves Extremities: Unstageable pressure ulcers are present on both right and left knee region. Central eschar formation is noted with no significant surrounding slough. No periwound erythema active drainage or odor noted. No pain to palpation or fluctuance noted. Following debridement of the right knee ulceration measures 4 x 3.5 x 0.2 cm. The left knee measures 4 x 4.7 x 0.1 cm. There is an additional stage II pressure ulceration present on the right fourth toe measuring 1.4 x 0.4 x 0.1 cm. No active drainage or erythema noted. Full range of motion is present in both extremities. Distal neurovascular bundles intact. Neurological: Alert and oriented x3. No focal deficits. Skin: No rashes, papules, vesicles, excoriations Assessment & Plan Assessment: Unstageable pressure ulcerations to the right knee, left knee and right earlobe Stage II pressure ulcer right fourth toe Plan: At this time both the ulcerations did require debridement. With the patient's permission and after the application of topical Xylocaine 4% these ulcerations were debrided with scissors and forceps. Eschar was removed in its entirety. Bleeding did occur in the right knee requiring a single 4-0 chromic suture along with silver nitrate for control. Both areas were dressed with Aquacel Ag an operative home. Dressings to be changed in 48 hours and then daily. Patient will continue to be monitored during his hospitalization followed up in the outpatient clinic upon discharge. This represented an excisional debridement of less than 20 cm.
[2017-11-05] MEDS ORDERED: DOXYCYCLINE HYCLATE 100 MG CAP PO SCH (09:00)
[2017-11-05] MEDS ORDERED: ZLF/50 PO (09:16)
[2017-11-05] MEDS ORDERED: DXY100 PO (09:16)
[2017-11-05] MEDS ORDERED: PANT40TA PO (09:16)
[2017-11-05] MEDS ORDERED: NSPO EXT (09:16)
[2017-11-05] MEDS ORDERED: LOSA50TA6 PO (09:16)
[2017-11-05] MEDS ORDERED: HYDR25TA5 PO (09:16)
[2017-11-05] MEDS ORDERED: IPRA1AER2 INH (09:16)
[2017-11-05] MEDS ORDERED: POLY335019 PO (09:16)
[2017-11-05] MEDS ORDERED: GABA-113 PO (09:16)
[2017-11-05] MEDS ORDERED: GABA-1219 PO (09:16)
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
== END 2017-11-05 15:40 | disposition home or self-care (01) | DRG 885 ==
LOC: C.MHU 13:19
PROVIDERS: ADMIT Psychiatry & Neurology Psychiatry; ATTEND Psychiatry & Neurology Psychiatry
PROC: 0HBHXZZ Excision of Right Upper Leg Skin, External Approach (ICD-10-PCS; principal; 2017-11-02)
PROC: 0HBJXZZ Excision of Left Upper Leg Skin, External Approach (ICD-10-PCS; principal; 2017-11-02)
DX: F33.2 Major depressive disorder, recurrent severe without psychotic features (principal); R45.851 Suicidal ideations; M62.82 Rhabdomyolysis; L89.890 Pressure ulcer of other site, unstageable; L89.892 Pressure ulcer of other site, stage 2; G89.29 Other chronic pain; M54.9 Dorsalgia, unspecified; I10 Essential (primary) hypertension; Z79.899 Other long term (current) drug therapy; Z65.3 Problems related to other legal circumstances; Z87.891 Personal history of nicotine dependence; Z88.8 Allergy status to other drugs, medicaments and biological substances; Z88.1 Allergy status to other antibiotic agents; Z88.7 Allergy status to serum and vaccine; Z91.013 Allergy to seafood; Z91.048 Other nonmedicinal substance allergy status

== ENCOUNTER 2021-12-14 14:17 | Inpatient (IN) ==
[2021-12-14] MEDS ORDERED: CLINDAMYCIN 900 MG in DEXTROSE 5% 50 ML IV ONE (14:39)
[2021-12-14] MEDS ORDERED: DAPTOmycin 500 MG in SYRINGE 0 ML IV ONE (14:39)
[2021-12-14] MEDS ORDERED: MoRPHine SULFATE 4 MG/ML 1 ML CARP\\VIAL IV PRN (14:45)
[2021-12-14] MEDS ORDERED: ONDANSETRON INJ 2 MG/ML 2 ML VIAL IV STA (14:45)
[2021-12-14] MEDS ORDERED: ACETAMINOPHEN 1000 MG/100 ML IV IV STA (14:45)
[2021-12-14] MEDS ORDERED: SODIUM CHLORIDE 0.9% 1000ML 1,000 ML IV SCH ×2 (14:45→15:45)
--- NOTE | 2021-12-14 14:48 | Emergency Department Note ---
Impression & Plan Sepsis, Perirectal abscess, Leukocytosis, Tachycardia ED Provider Note NAME: VALERIE LANE AGE: 61 SEX: M : 1960 ARRIVES VIA: Walk-In INFORMANT: [Patient] ED PROVIDER(S): [Angelito Garzon MD] CHIEF COMPLAINT: Rectal pain HISTORY OF PRESENT ILLNESS: The patient is a 61-year-old male who states that for 4 days, he has had some pain in the area of his right buttock/rectum. He began having fevers and chills 3 days ago. The pain is worsened and has become severe. He is having a hard time moving his bowels and sometimes, loses bowel continence. He is having a hard time moving his urine, he has to strain to go. There has been no cough or congestion. No respiratory complaints. He has not had abdominal pain or chest pain. He has no history of diabetes. The patient states that he has never had this type of an issue before. REVIEW OF SYSTEMS: See HPI for pertinent positives and negatives. A total of ten systems were revi ewed and were otherwise negative. PMHx/PSHx: See Below SOCIAL HISTORY: See Below. PHYSICAL EXAM: GENERAL: Patient is in mild distress from pain. HEENT: No acute trauma, normocephalic atraumatic, mucous membranes moist, no nasal congestion, no scleral icterus. NECK: No stridor, no adenopathy, no meningismus, trachea is midline. LUNGS: Clear to auscultation bilaterally, no wheeze, no rhonchi, breath sounds equal. HEART: Mildly tachycardic, regular rhythm, no murmurs. ABDOMEN: Soft, nontender, bowel sounds positive, no hernias, no peritonitis. EXTREMITIES: No cyanosis or edema, full range of motion of all the joints without pain or difficulty, no signs for acute trauma. NEUROLOGIC: Oriented x 3, no acute motor or sensory deficits, no focal weakness. SKIN: No rash, no jaundice, no diaphoresis. Rectal: The patient has a 12 to 14 cm area of erythema and swelling to the right buttock that extends from the rectum over the buttock cheek and up to the margin of the inferior scrotum. This area is quite tender, no drainage. Groin: There was no scrotal cellulitis or inflammation. DIFFERENTIAL DIAGNOSIS: Sepsis, UTI, perirectal abscess, pneumonia, metabolic abnormality, electrolyte abnormalities, cardiac sources, cellulitis, bacteremia, intracerebral event, toxicologic etiology, neurologic event, as well as other pathologies. EMERGENCY DEPARTMENT COURSE/PROCEDURES: ECG: Indication was tachycardia and potential sepsis. The ECG shows a sinus tachycardia with some PACs. The rate is 135. There is no ST elevation, no PVCs. The QTc is 447. Continuous Cardiac Monitoring: An order was placed for continuous cardiac mon itoring. The monitor shows a rate of 127 with sinus tachycardia. Critical Care Note: I have personally spent 54 minutes of critical care time in the direct management of this patient. This includes bedside care, interpretation of diagnostic studies, and testing, discussion with consultants, patient, and family members, and other required patient management activities. This 54 minutes is in excess of all separately billable procedures. MEDICAL DECISION MAKING: There is a significant leukocytosis at 21,000, this is certainly consistent with infection. There is a normal hemoglobin and platelet count. INR is mildly elevated at 1.2. No renal failure or significant electrolyte abnormality. Lactic acid level was elevated consistent with infection/sepsis. No concerning liver enzyme elevation. Procalcitonin level was elevated consistent with a bacterial infection. Urinalysis showed contamination, no obvious infection. Covid testing returned negative. Chest x-ray did not show pneumonia or CHF. Abdominal and pelvis CT shows evidence for perirectal abscess with potential necrotizing fasciitis. On exam, the patient was quite tender in the area of the right buttock. An obvious abscess was noted. He was tachycardic. The patient was aggressively managed. He was presumed septic. He received IV clindamycin and IV daptomycin. He was given IV saline, 2 L. He received IV Zofran for nausea, IV morphine for pain. He received IV Tylenol. After seeing the patient I spoke immediately to general surgery. General surger y saw the patient in the ED and has made the decision for surgical intervention. The patient will be admitted to our facility. The patient is aware of his findings, he understands the need for hospi talization and surgical intervention. I did speak with case management. Past Med/Surg History Medical History Depression Rhabdomyolysis Suicidal ideation Social History Smoking Status: Current every day smoker Tobacco Type: Cigarettes Cigarettes Per Day: 10; Hx Alcohol Use: Yes Alcohol type: beer Hx Substance Use: No Preferred Language: Turkmen Communication Ability: Effective Licensed Insurance Sales Agent Required: No Beliefs That Will Affect Care: None Current Living Situation: Family Other Information That Helps Us Care for You: No Feels Safe at Home: Yes Assistive Devices: Denture - Upper and Denture - Lower Allergies Allergies Allergy/AdvReac Type Severity Reaction Status Date / Time blue dye Allergy Intermediate HIVES, Verified 12/14/21 15:36 BLISTERS doxycycline Allergy Intermediate HIVES Verified 12/14/21 15:36 Fish Containing Products Allergy Intermediate HIVES, Verified 12/14/21 15:36 FEVER oseltamivir Allergy Intermediate HIVES, Verified 12/14/21 15:36 BLISTERS tetanus toxoid, adsorbed Allergy Intermediate FEVER Verified 12/14/21 15:36 amoxicillin Allergy Mild HIVES Verified 12/14/21 15:36 lisinopril Allergy Mild HIVES Verified 12/14/21 15:36 shellfish derived Allergy Mild ANAPHYLACTI Verified 12/14/21 15:36 C Home Meds Home Medications Medication Instructions Recorded Confirmed gabapentin 600 mg tablet 600 mg PO QID 12/14/21 12/14/21 hydroxyzine HCl 25 mg tablet 25 - 50 mg PO HS 12/14/21 12/14/21 losartan 50 mg tablet 50 mg PO QAM 12/14/21 12/14/21 pantoprazole 40 mg tablet,delayed 40 mg PO HS 12/14/21 12/14/21 release sertraline 50 mg tablet 75 mg PO QAM 12/14/21 12/14/21 Results & Data (ED) Vital Signs Vital Signs - 24 hr 12/14/21 14:19 12/14/21 14:52 12/14/21 15:36 Temperature 36.8 C Temperature Source Temporal Artery Scan Pulse Rate 127 H 127 H Pulse Rate [Apical] Pulse Rhythm Regular Pulse Rhythm [Apical] Respiratory Rate 18 18 Respiratory Effort / Characteristics Non-Labored Spontaneous Respiratory Depth Respiratory Pattern Blood Pressure 129/75 Blood Pressure [Left Arm] Blood Pressure Mean 93 Blood Pressure Mean [Left Arm] Blood Pressure Position [Left Arm] Pulse Oximetry 98 98 97 Oxygen Delivery Method Room Air Room Air Room Air Oxygen Flow Rate Sepsis Recent Fever Within 48 Hours Yes Sepsis New/Unexplained Change in Mental Status No Sepsis Action Taken by Nursing No Action Required 12/14/21 16:20 12/14/21 17:39 Temperature 38 C H 36.4 C L Temperature Source Oral Temporal Artery Scan Pulse Rate Pulse Rate [Apical] 113 H 97 H Pulse Rhythm Pulse Rhythm [Apical] Regular Respiratory Rate 24 20 Respiratory Effort / Characteristics Non-Labored Spontaneous Non-Labored Spontaneous Respiratory Depth Normal Normal Respiratory Pattern Regular Blood Pressure Blood Pressure [Left Arm] 94/63 L 125/82 Blood Pressure Mean Blood Pressure Mean [Left Arm] 73 96 Blood Pressure Position [Left Arm] Right Lateral Semi-fowlers Pulse Oximetry 93 98 Oxygen Delivery Method Room Air Oxymask Oxygen Flow Rate 4 Sepsis Recent Fever Within 48 Hours Sepsis New/Unexplained Change in Mental Status Sepsis Action Taken by [facility] Medications Current Medication List: was personally reviewed by me Laboratory Data Attestation: I reviewed the patient's lab results. Result diagrams: 12/14/21 15:00 12/14/21 15:00 Lab Results 12/14/21 12/14/21 12/14/21 Range/Units 15:00 15:00 15:00 WBC 21.99 H (4.8-10.8) K/uL RBC 4.45 L (4.7-6.1) M/uL Hgb 14.0 (14.0-18.0) g/dL Hct 40.2 L (42-52) % MCV 90.3 (80-100) fL MCH 31.5 (25-34) pg MCHC 34.8 (32-36) g/dL RDW Std Deviation 44.7 (36.4-46.3) fL RDW Coeff of Raul 13.6 (11.5-14.5) % Plt Count 232 (130-400) K/uL MPV 9.4 (7.4-10.4) fL Immature Gran % (Auto) 1.8 % Neut % (Auto) 87.4 % Lymph % (Auto) 4.9 % [place] % (Auto) 5.7 % Eos % (Auto) 0.1 % Baso % (Auto) 0.1 % Neut # (Auto) 19.21 H (1.4-6.5) K/uL Lymph # (Auto) 1.08 L (1.2-3.4) K/uL [place] # (Auto) 1.26 H (0.11-0.59) K/uL Eos # (Auto) 0.02 (0-0.5) K/uL Baso # (Auto) 0.02 (0-0.2) K/uL Immature Gran # (Auto) 0.40 H (0.00-0.02) K/uL PT 12.6 H (9.0-12.0) Seconds INR 1.2 H (0.9-1.1) APTT 34.1 H (21.0-31.0) Seconds PTT Ratio 1.2 Sodium (136-145) mmol/L Potassium (3.5-5.1) mmol/L Chloride (98-107) mmol/L Carbon Dioxide (21-32) mmol/L Anion Gap (3-11) BUN (6-23) mg/dl Creatinine (0.6-1.4) mg/dl Est Cr Clr Drug Dosing ml/min Est GFR ( Amer) ml/min Est GFR (Non-Af Amer) ml/min BUN/Creatinine Ratio (10-20) Glucose (70-99(Fasting)) mg/dl Lactate (0.4-2.0) mmol/L Calcium (8.5-10.1) mg/dl Magnesium (1.7-2.4) mg/dl Total Bilirubin (0.2-1.0) mg/dl AST (13-39) U/L ALT (7-52) U/L Alkaline Phosphatase (34-104) U/L Total Protein (6.0-8.3) gm/dl Albumin (3.4-5.0) gm/dl Globulin (2.5-4.0) gm/dl Albumin/Globulin Ratio (0.9-2) Procalcitonin 1.31 H (0-0.5) ng/ml Urine Color Urine Appearance (Clear) Urine pH (4.5-7.5) Ur Specific [place] (1.000-1.030) Urine Protein (Negative) Urine Glucose (UA) (Negative) Urine Ketones (Negative) Urine Blood (Negative) Urine Nitrite (Negative) Urine Bilirubin (Negative) Urine Urobilinogen (Negative) Ur Leukocyte Esterase (Negative) Urine WBC (Auto) (0-5) /hpf Urine RBC (Auto) (0-4) /hpf U Hyaline Cast (Auto) (0-5) /lpf U Epithel Cells (Auto) (0-5) /lpf Urine Bacteria (Auto) (Negative) SARS-CoV-2, RNA, NAAT (NEGATIVE) 12/14/21 12/14/21 12/14/21 Range/Units 15:00 15:00 15:10 WBC (4.8-10.8) K/uL RBC (4.7-6.1) M/uL Hgb (14.0-18.0) g/dL Hct (42-52) % MCV (80-100) fL MCH (25-34) pg MCHC (32-36) g/dL RDW Std Deviation (36.4-46.3) fL RDW Coeff of Raul (11.5-14.5) % Plt Count (130-400) K/uL MPV (7.4-10.4) fL Immature Gran % (Auto) % Neut % (Auto) % Lymph % (Auto) % [place] % (Auto) % Eos % (Auto) % Baso % (Auto) % Neut # (Auto) (1.4-6.5) K/uL Lymph # (Auto) (1.2-3.4) K/uL [place] # (Auto) (0.11-0.59) K/uL Eos # (Auto) (0-0.5) K/uL Baso # (Auto) (0-0.2) K/uL Immature Gran # (Auto) (0.00-0.02) K/uL PT (9.0-12.0) Seconds INR (0.9-1.1) APTT (21.0-31.0) Seconds PTT Ratio Sodium 135 L (136-145) mmol/L Potassium 4.0 (3.5-5.1) mmol/L Chloride 100 (98-107) mmol/L Carbon Dioxide 24 (21-32) mmol/L Anion Gap 11 (3-11) BUN 19 (6-23) mg/dl Creatinine 1.19 (0.6-1.4) mg/dl Est Cr Clr Drug Dosing 72.2 ml/min Est GFR ( Amer) 74.9 ml/min Est GFR (Non-Af Amer) 64.6 ml/min BUN/Creatinine Ratio 16.0 (10-20) Glucose 115 H (70-99(Fasting)) mg/dl Lactate 2.8 H* (0.4-2.0) mmol/L Calcium 8.9 (8.5-10.1) mg/dl Magnesium 1.9 (1.7-2.4) mg/dl Total Bilirubin 1.0 (0.2-1.0) mg/dl AST 14 (13-39) U/L ALT 13 (7-52) U/L Alkaline Phosphatase 96 (34-104) U/L Total Protein 7.3 (6.0-8.3) gm/dl Albumin 3.4 (3.4-5.0) gm/dl Globulin 3.9 (2.5-4.0) gm/dl Albumin/Globulin Ratio 0.9 (0.9-2) Procalcitonin (0-0.5) ng/ml Urine Color [place] Urine Appearance Clear (Clear) Urine pH 5.5 (4.5-7.5) Ur Specific [place] 1.022 (1.000-1.030) Urine Protein 1+ H (Negative) Urine Glucose (UA) Negative (Negative) Urine Ketones 1+ H (Negative) Urine Blood Negative (Negative) Urine Nitrite Negative (Negative) Urine Bilirubin 1+ H (Negative) Urine Urobilinogen Positive H (Negative) Ur Leukocyte Esterase Trace H (Negative) Urine WBC (Auto) 1-5 (0-5) /hpf Urine RBC (Auto) 5-10 H (0-4) /hpf U Hyaline Cast (Auto) 10-30 H (0-5) /lpf U Epithel Cells (Auto) >30 H (0-5) /lpf Urine Bacteria (Auto) Negative (Negative) SARS-CoV-2, RNA, NAAT (NEGATIVE) 12/14/21 Range/Units 15:27 WBC (4.8-10.8) K/uL RBC (4.7-6.1) M/uL Hgb (14.0-18.0) g/dL Hct (42-52) % MCV (80-100) fL MCH (25-34) pg MCHC (32-36) g/dL RDW Std Deviation (36.4-46.3) fL RDW Coeff of Raul (11.5-14.5) % Plt Count (130-400) K/uL MPV (7.4-10.4) fL Immature Gran % (Auto) % Neut % (Auto) % Lymph % (Auto) % [place] % (Auto) % Eos % (Auto) % Baso % (Auto) % Neut # (Auto) (1.4-6.5) K/uL Lymph # (Auto) (1.2-3.4) K/uL [place] # (Auto) (0.11-0.59) K/uL Eos # (Auto) (0-0.5) K/uL Baso # (Auto) (0-0.2) K/uL Immature Gran # (Auto) (0.00-0.02) K/uL PT (9.0-12.0) Seconds INR (0.9-1.1) APTT (21.0-31.0) Seconds PTT Ratio Sodium (136-145) mmol/L Potassium (3.5-5.1) mmol/L Chloride (98-107) mmol/L Carbon Dioxide (21-32) mmol/L Anion Gap (3-11) BUN (6-23) mg/dl Creatinine (0.6-1.4) mg/dl Est Cr Clr Drug Dosing ml/min Est GFR ( Amer) ml/min Est GFR (Non-Af Amer) ml/min BUN/Creatinine Ratio (10-20) Glucose (70-99(Fasting)) mg/dl Lactate (0.4-2.0) mmol/L Calcium (8.5-10.1) mg/dl Magnesium (1.7-2.4) mg/dl Total Bilirubin (0.2-1.0) mg/dl AST (13-39) U/L ALT (7-52) U/L Alkaline Phosphatase (34-104) U/L Total Protein (6.0-8.3) gm/dl Albumin (3.4-5.0) gm/dl Globulin (2.5-4.0) gm/dl Albumin/Globulin Ratio (0.9-2) Procalcitonin (0-0.5) ng/ml Urine Color Urine Appearance (Clear) Urine pH (4.5-7.5) Ur Specific [place] (1.000-1.030) Urine Protein (Negative) Urine Glucose (UA) (Negative) Urine Ketones (Negative) Urine Blood (Negative) Urine Nitrite (Negative) Urine Bilirubin (Negative) Urine Urobilinogen (Negative) Ur Leukocyte Esterase (Negative) Urine WBC (Auto) (0-5) /hpf Urine RBC (Auto) (0-4) /hpf U Hyaline Cast (Auto) (0-5) /lpf U Epithel Cells (Auto) (0-5) /lpf Urine Bacteria (Auto) (Negative) SARS-CoV-2, RNA, NAAT NEGATIVE (NEGATIVE) Administered Medications Fentanyl Citrate (Fentanyl Citrate 100 Mcg/2 Ml Vial) 50 mcg IV Q5M PRN PRN Reason: PACU Use Only-Pain Stop: 12/15/21 00:32 Last Admin: 12/14/21 18:17 Dose: 50 mcg Documented by: [id number] Admin: 12/14/21 18:07 Dose: 50 mcg Documented by: [id number] Lactated Ringer's (Lr) 1,000 mls @ 75 mls/hr IV .[id number] [facility] Stop: 01/13/22 18:51 Last Admin: 12/14/21 19:32 Dose: 75 mls/hr Documented by: [id number] Discontinued Medications Acetaminophen (Acetaminophen 1000 Mg/100 Ml Iv) 1,000 mg IV NOW [facility] Stop: 12/14/21 14:46 Last Admin: 12/14/21 15:25 Dose: 1,000 mg Documented by: [id number] Sodium Chloride (Nss 1000ml) 1,000 mls @ 999 mls/hr IV .[id number] [facility] Stop: 12/14/21 15:40 Last Admin: 12/14/21 19:13 Dose: Not Given Documented by: [id number] Sodium Chloride (Nss 1000ml) 1,000 mls @ 999 mls/hr IV .[id number] [place] Stop: 12/14/21 16:45 Last Admin: 12/14/21 19:13 Dose: Not Given Documented by: [id number] Clindamycin Phosphate 900 mg/ (Dextrose) 56 mls @ 112 mls/hr IV ONE ONE Stop: 12/14/21 15:08 Last Infusion: 12/14/21 19:14 Dose: 0 mls/hr Documented by: [id number] Admin: 12/14/21 15:33 Dose: 112 mls/hr Documented by: [id number] Daptomycin 500 mg/ Syringe 10 mls @ 5 mls/min IV NOW ONE; Protocol Stop: 12/14/21 14:40 Last Admin: 12/14/21 15:33 Dose: 5 mls/min Documented by: [id number] Ioversol (Optiray 320 100ml) 94 ml IV ONCE ONE Stop: 12/14/21 16:04 Last Admin: 12/14/21 16:06 Dose: 94 ml Documented by: [id number] Lidocaine/Epinephrine (Lidocaine 1%/Epinephrine 1:100,000 50 Ml Vial) Confirm Administered Dose 50 ml .ROUTE .STK-MED ONE Stop: 12/14/21 16:32 Last Admin: 12/14/21 19:13 Dose: Not Given Documented by: [id number] Morphine Sulfate (Morphine Sulfate 4 Mg/Ml 1 Ml Carp\Vial) 4 mg IV Q30M PRN PRN Reason: Pain Stop: 12/28/21 14:44 Last Admin: 12/14/21 15:25 Dose: 4 mg Documented by: [id number] Ondansetron HCl (Ondansetron Inj 2 Mg/Ml 2 Ml Vial) 4 mg IV NOW STA Stop: 12/14/21 14:46 Last Admin: 12/14/21 15:25 Dose: 4 mg Documented by: [id number] Imaging Data Radiologist's Impression: Abdomen/Pelvis CT 12/14/21 14:39 CT OF THE ABDOMEN AND PELVIS WITH CONTRAST CLINICAL HISTORY: Perirectal abscess. COMPARISON STUDY: CT of the abdomen and pelvis January 28, 2017. TECHNIQUE: Following IV administration of 94 mL of Optiray, axial images of the abdomen and pelvis were obtained from the lung bases to the proximal femurs. Images were reviewed in the axial, sagittal, and coronal planes. IV contrast was administered without complication. Automated exposure control was utilized for the study. A dose lowering technique was utilized adhering to the principles of ALARA. CT DOSE: 888.54 mGycm FINDINGS: A calcific granuloma within the left lower lobe is unchanged. This is benign. No pneumatosis, free air or portal venous gas is present. The gallbladder is mildly distended. There is no pericholecystic infiltration. The liver, spleen, adrenal glands, kidneys and pancreas are unremarkable. No hydronephrosis. No biliary or pancreatic ductal dilatation. There is no evidence for a bowel obstruction. Colonic diverticulosis is noted without evidence for acute diverticulitis. Major vasculature is patent. Asymmetrically mildly enlarged right inguinal and iliac chain lymph nodes are noted. Index right inguinal node on axial image 445 of 571 measures 1.5 cm in short axis diameter. Index right iliac chain node on image 382 measures 1.1 cm. A Rico balloon is present within the bladder which is collapsed. Note is made of extensive soft tissue gas within the right perineum which extends to the base of the scrotum. There is associated stranding which extends to the right buttock. Note is made of an associated complex right perianal abscess which contains gas and fluid. This collection measures 3.8 x 2.6 cm. Collection extends superiorly along the right aspect of the prostate. There is an adjacent suspected fistula which extends through the external sphincter. IMPRESSION: 1. Extensive infectious process within the right perineum with soft tissue gas and stranding. This infectious process extends from the right buttock to the base of the right hemiscrotum and raises the possibility of necrotizing fasciitis. Associated complex right perianal abscess, measuring 3.8 x 2.6 cm w ith associated fistula which likely extends through the external sphincter. Surgical consultation is recommended. 2. Mildly enlarged right inguinal and iliac chain lymph nodes which are likely reactive. ACT 112: Negative or not required by law. Electronically signed by: Manuel Nazario M.D. 12/14/2021 4:33 PM Chest X-Ray 12/14/21 14:40 XR chest 1V portable CLINICAL HISTORY: SEPSIS TECHNIQUE: Single frontal radiograph of the chest was obtained. Comparison: Comparison is made to chest one view 10/27/2017 FINDINGS: No lines and tubes are seen. The cardiomediastinal silhouette is normal. The lungs are clear. No evidence of pleural effusion or pneumothorax. IMPRESSION: No acute abnormality and in particular no evidence of pneumonia. ACT 112: Negative or not required by law. Electronically signed by: Sumanth Henriquez M.D. 12/14/2021 3:22 PM Discharge Plan Visit Data Chief Complaint: Pain (Generalized) Stated Complaint: CYST ON BUTT, FEVER, LOWER BACK PAIN ED Provider: Angelito Garzon Discharge Problem: Sepsis, Perirectal abscess, Leukocytosis, Tachycardia Patient Disposition: Admitted As Inpatient Condition: Serious Discharge Instructions Interventions: ED Discharge Assessment Last Done: 12/14/21 16:19
[2021-12-14 15:17] LABS: Hematocrit (blood only) 40.2 % (42-52); Mean Corpuscular Hemoglobin 31.5 pg (25-34); Mean Corpuscular Hgb Conc 34.8 g/dL (32-36); Mean Corpuscular Volume 90.3 fL (80-100); Mean Platelet Volume 9.4 fL (7.4-10.4); Platelet Count 232 K/uL (130-400); RDW Coefficient of Variation 13.6 % (11.5-14.5); RDW Standard Deviation 44.7 fL (36.4-46.3); Red Blood Count 4.45 M/uL (4.7-6.1); White Blood Count 21.99 K/uL (4.8-10.8)
--- NOTE | 2021-12-14 15:23 | XRay Report ---
XR chest 1V portable CLINICAL HISTORY: SEPSIS TECHNIQUE: Single frontal radiograph of the chest was obtained. Comparison: Comparison is made to chest one view 10/27/2017 FINDINGS: No lines and tubes are seen. The cardiomediastinal silhouette is normal. The lungs are clear. No evid ence of pleural effusion or pneumothorax. IMPRESSION: No acute abnormality and in particular no evidence of pneumonia. ACT 112: Negative or not required by law. Electronically signed by: Sumanth Henriquez M.D. 12/14/2021 3:22 PM
[2021-12-14 15:28] LABS: INR 1.2 (0.9-1.1); Partial Thromboplastin Ratio 1.2; Partial Thromboplastin Time 34.1 Seconds (21.0-31.0); Prothrombin Time 12.6 Seconds (9.0-12.0)
[2021-12-14 15:36] LABS: Appearance Urine Clear (Clear); Bacteria Urine Automated Negative (Negative); Blood Urine Negative (Negative); Color Urine Orange; Epithelial Cell Urine Auto >30 /lpf (0-5); Glucose Urine UA Negative (Negative); Ketones Urine 1+ (Negative); Leukocyte Esterase Urine Trace (Negative); Nitrite Urine Negative (Negative); Protein Urine 1+ (Negative); Specific Gravity Urine 1.022 (1.000-1.030); Urobilinogen Urine Positive (Negative); pH Urine 5.5 (4.5-7.5)
[2021-12-14 15:37] LABS: Albumin Globulin Ratio 0.9 (0.9-2); Albumin Level 3.4 gm/dl (3.4-5.0); Calcium 8.9 mg/dl (8.5-10.1); Creatinine Clr Calc Pharmacy 72.2 ml/min; Est GFR (African American) 74.9 ml/min; Est GFR (Non-African American) 64.6 ml/min; Globulin 3.9 gm/dl (2.5-4.0); Magnesium 1.9 mg/dl (1.7-2.4); Total Protein 7.3 gm/dl (6.0-8.3)
--- NOTE | 2021-12-14 15:41 | History & Physical Report ---
Date of Service December 14, 2021 Assessment & Plan (1) Perirectal abscess: (2) Systemic inflammatory response syndrome (SIRS) due to infection: Plan: 61-year-old gentleman presents with large perirectal abscess, systemic inflammatory response syndrome manifesting with tachycardia and elevated white blood cell count to 22. Decreased urine output. CT scan is pending. Covid test is pending. I discussed the risks and benefits of incision and drainage of the perirectal abscess in the operating room under anesthesia. We discussed the outcomes and postoperative course. All his questions were answered, he is agreeable to proceed. We will take him to the operating room at the earliest convenience. History of Present Illness Primary Care Provider: Heather Peterson PA-C 61-year-old gentleman presents with severe pain in his right perineal region extending to his scrotum. He states the pain began on Sunday and were accompanied by chills and sweats. The pain worsened over the weekend but significantly worsened this morning. He denies any drainage. He has been having trouble urinating and having bowel movements since the pain started. He denies nausea or vomiting. He denies chest pain or shortness of breath. Allergies Allergy/AdvReac Type Severity Reaction Status Date / Time blue dye Allergy Intermediate HIVES, Verified 12/14/21 15:36 BLISTERS doxycycline Allergy Intermediate HIVES Verified 12/14/21 15:36 Fish Containing Products Allergy Intermediate HIVES, Verified 12/14/21 15:36 FEVER oseltamivir Allergy Intermediate HIVES, Verified 12/14/21 15:36 BLISTERS tetanus toxoid, adsorbed Allergy Intermediate FEVER Verified 12/14/21 15:36 amoxicillin Allergy Mild HIVES Verified 12/14/21 15:36 lisinopril Allergy Mild HIVES Verified 12/14/21 15:36 shellfish derived Allergy Mild ANAPHYLACTI Verified 12/14/21 15:36 C Home Medications Medication Instructions Recorded Confirmed Type gabapentin 600 mg tablet 600 mg PO BID 12/14/21 12/14/21 History hydrochlorothiazide 25 mg tablet 25 mg PO DAILY 12/14/21 12/14/21 History hydroxyzine HCl 25 mg tablet 25 - 50 mg PO HS 12/14/21 12/14/21 History losartan 50 mg tablet 50 mg PO QAM 12/14/21 12/14/21 History pantoprazole 40 mg tablet,delayed 40 mg PO HS 12/14/21 12/14/21 History release sertraline 50 mg tablet 75 mg PO DAILY 12/14/21 12/14/21 History Past Med/Surg History Social History Smoking Status: Current every day smoker Tobacco Type: Cigarettes Preferred Language: Hungarian Feels Safe at Home: Yes Review of Systems Review of Systems: All systems reviewed & are unremarkable except as noted in HPI & below Physical Exam Constitutional: WD/WN, vitals as above Neck: trachea midline, no thyromegaly Respiratory: normal respiratory effort; no respiratory distress and no labored breathing Cardiovascular: Rate/Rhythm: regular rhythm and + tachycardic Gastrointestinal (Abdomen): Inspection/Auscultation: abdomen normal to inspection; abdomen not distended Percussion/Palpation: abdomen soft; abdomen nontender Musculoskeletal: Extremities: no cyanosis and no clubbing Skin: no rashes, warm and dry Psychiatric: A+Ox3, euthymic affect Genitourinary: Right perirectal region extending to the base of the scrotum with significant induration, erythema, tenderness; 14 x 12 cm area Results & Data Results & Data ([facility]) Vital Signs (Past 12 Hours) Vital Signs Temp Pulse Resp BP Pulse Ox 12/14/21 14:52 127 H 18 98 12/14/21 14:19 36.8 C 127 H 18 129/75 98 Laboratory Results 12/14/21 12/14/21 12/14/21 Range/Units 15:10 15:00 15:00 WBC (4.8-10.8) K/uL RBC (4.7-6.1) M/uL Hgb (14.0-18.0) g/dL Hct (42-52) % MCV (80-100) fL MCH (25-34) pg MCHC (32-36) g/dL RDW Std Deviation (36.4-46.3) fL RDW Coeff of Raul (11.5-14.5) % Plt Count (130-400) K/uL MPV (7.4-10.4) fL PT (9.0-12.0) Seconds INR (0.9-1.1) APTT (21.0-31.0) Seconds PTT Ratio Sodium 135 L (136-145) mmol/L Potassium 4.0 (3.5-5.1) mmol/L Chloride 100 (98-107) mmol/L Carbon Dioxide 24 (21-32) mmol/L Anion Gap 11 (3-11) BUN 19 (6-23) mg/dl Creatinine 1.19 (0.6-1.4) mg/dl Est Cr Clr Drug Dosing 72.2 ml/min Est GFR ( Amer) 74.9 ml/min Est GFR (Non-Af Amer) 64.6 ml/min BUN/Creatinine Ratio 16.0 (10-20) Glucose 115 H (70-99(Fasting)) mg/dl Lactate Pending Calcium 8.9 (8.5-10.1) mg/dl Magnesium 1.9 (1.7-2.4) mg/dl Total Bilirubin 1.0 (0.2-1.0) mg/dl AST 14 (13-39) U/L ALT 13 (7-52) U/L Alkaline Phosphatase 96 (34-104) U/L Total Protein 7.3 (6.0-8.3) gm/dl Albumin 3.4 (3.4-5.0) gm/dl Globulin 3.9 (2.5-4.0) gm/dl Albumin/Globulin Ratio 0.9 (0.9-2) Procalcitonin Urine Color Pending Urine Appearance Pending Urine pH Pending Ur Specific [place] Pending Urine Protein Pending Urine Glucose (UA) Pending Urine Ketones Pending Urine Blood Pending Urine Nitrite Pending Urine Bilirubin Pending Urine Urobilinogen Pending Ur Leukocyte Esterase Pending 12/14/21 12/14/21 12/14/21 Range/Units 15:00 15:00 15:00 WBC 21.99 H (4.8-10.8) K/uL RBC 4.45 L (4.7-6.1) M/uL Hgb 14.0 (14.0-18.0) g/dL Hct 40.2 L (42-52) % MCV 90.3 (80-100) fL MCH 31.5 (25-34) pg MCHC 34.8 (32-36) g/dL RDW Std Deviation 44.7 (36.4-46.3) fL RDW Coeff of Raul 13.6 (11.5-14.5) % Plt Count 232 (130-400) K/uL MPV 9.4 (7.4-10.4) fL PT 12.6 H (9.0-12.0) Seconds INR 1.2 H (0.9-1.1) APTT 34.1 H (21.0-31.0) Seconds PTT Ratio 1.2 Sodium (136-145) mmol/L Potassium (3.5-5.1) mmol/L Chloride (98-107) mmol/L Carbon Dioxide (21-32) mmol/L Anion Gap (3-11) BUN (6-23) mg/dl Creatinine (0.6-1.4) mg/dl Est Cr Clr Drug Dosing ml/min Est GFR ( Amer) ml/min Est GFR (Non-Af Amer) ml/min BUN/Creatinine Ratio (10-20) Glucose (70-99(Fasting)) mg/dl Lactate Calcium (8.5-10.1) mg/dl Magnesium (1.7-2.4) mg/dl Total Bilirubin (0.2-1.0) mg/dl AST (13-39) U/L ALT (7-52) U/L Alkaline Phosphatase (34-104) U/L Total Protein (6.0-8.3) gm/dl Albumin (3.4-5.0) gm/dl Globulin (2.5-4.0) gm/dl Albumin/Globulin Ratio (0.9-2) Procalcitonin Pending Urine Color Urine Appearance Urine pH Ur Specific [place] Urine Protein Urine Glucose (UA) Urine Ketones Urine Blood Urine Nitrite Urine Bilirubin Urine Urobilinogen Ur Leukocyte Esterase
[2021-12-14 15:42] LABS: Bilirubin Urine 1+ (Negative)
--- NOTE | 2021-12-14 15:54 | Anesthesiology Consultation ---
Date of Service December 14, 2021 Assessment & Plan Chart Review Chart Review: Acceptable Risk for Surgery and Patient NOT seen in Pre Admission Testing Consults Requested none History Surgery Operation Date: 12/14/21 08:10 Proposed Procedures p Incision and Drainage Perirectal Abscess - Silvano Cui MD Height/Weight Height: 5 ft 10 in Weight: 91.3 kg Allergies Allergy/AdvReac Type Severity Reaction Status Date / Time blue dye Allergy Intermediate HIVES, Verified 12/14/21 15:36 BLISTERS doxycycline Allergy Intermediate HIVES Verified 12/14/21 15:36 Fish Containing Products Allergy Intermediate HIVES, Verified 12/14/21 15:36 FEVER oseltamivir Allergy Intermediate HIVES, Verified 12/14/21 15:36 BLISTERS tetanus toxoid, adsorbed Allergy Intermediate FEVER Verified 12/14/21 15:36 amoxicillin Allergy Mild HIVES Verified 12/14/21 15:36 lisinopril Allergy Mild HIVES Verified 12/14/21 15:36 shellfish derived Allergy Mild ANAPHYLACTI Verified 12/14/21 15:36 C Medications Home Medications Medication Instructions Recorded Confirmed Last Taken gabapentin 600 mg tablet 600 mg PO QID 12/14/21 12/14/21 Unknown hydroxyzine HCl 25 mg tablet 25 - 50 mg PO HS 12/14/21 12/14/21 Unknown losartan 50 mg tablet 50 mg PO QAM 12/14/21 12/14/21 Unknown pantoprazole 40 mg tablet,delayed 40 mg PO HS 12/14/21 12/14/21 Unknown release sertraline 50 mg tablet 75 mg PO QAM 12/14/21 12/14/21 Unknown Active Medications Generic Name Dose Route Start Last Admin Trade Name Joann PRN Reason Stop Dose Admin Morphine Sulfate 4 mg 12/14/21 14:45 12/14/21 15:25 Morphine Sulfate 4 Mg/Ml 1 Ml Carp\Vial IV 12/28/21 14:44 4 mg Q30M PRN Administration Pain Exercise / Class Metabolic Activity II 4-5 Yardwork/Stairs/Walk up hill Past Anesthesia History No Hx of Anesthesia Complications and No Family Hx of Anesthesia Complications History of PONV No Hx of PONV and No Hx of Motion Sickness Social History Smoking Status: Current every day smoker Physical Exam Vital Signs Last Vital Signs Temp 36.8 C 12/14/21 14:19 Pulse 127 H 12/14/21 14:52 Resp 18 12/14/21 14:52 BP 129/75 12/14/21 14:19 Pulse Ox 97 12/14/21 15:36 Testing Laboratory Results 12/14/21 15:00 12/14/21 15:00 PT 12.6 Seconds (9.0-12.0) H 12/14/21 15:00 INR 1.2 (0.9-1.1) H 12/14/21 15:00 APTT 34.1 Seconds (21.0-31.0) H 12/14/21 15:00 Urine Color [place] 12/14/21 15:10 Urine Appearance Clear (Clear) 12/14/21 15:10 Urine pH 5.5 (4.5-7.5) 12/14/21 15:10 Ur Specific [place] 1.022 (1.000-1.030) 12/14/21 15:10 Urine Protein 1+ (Negative) H 12/14/21 15:10 Urine Glucose (UA) Negative (Negative) 12/14/21 15:10 Urine Ketones 1+ (Negative) H 12/14/21 15:10 Urine Nitrite Negative (Negative) 12/14/21 15:10 Ur Leukocyte Esterase Trace (Negative) H 12/14/21 15:10 Urine WBC (Auto) 1-5 /hpf (0-5) 12/14/21 15:10 Urine RBC (Auto) 5-10 /hpf (0-4) H 12/14/21 15:10 U Hyaline Cast (Auto) 10-30 /lpf (0-5) H 12/14/21 15:10 U Epithel Cells (Auto) >30 /lpf (0-5) H 12/14/21 15:10 Urine Bacteria (Auto) Negative (Negative) 12/14/21 15:10 Electrocardiogram Date: 12/14/21 Findings: + ST @ (at 135;PAC's;? anterior infarct, age ?) Chest X-Ray Date: 12/14/21 Findings: + NAD
[2021-12-14 15:55] LABS: Basophils # (auto) 0.02 K/uL (0-0.2); Basophils % (auto) 0.1 %; Eosinophils # (auto) 0.02 K/uL (0-0.5); Eosinophils % (auto) 0.1 %; Immature Granulocytes % (auto) 1.8 %; Lymphocytes # (auto) 1.08 K/uL (1.2-3.4); Lymphocytes % (auto) 4.9 %; Monocytes # (auto) 1.26 K/uL (0.11-0.59); Monocytes % (auto) 5.7 %; Neutrophils # (auto) 19.21 K/uL (1.4-6.5); Neutrophils % (auto) 87.4 %
[2021-12-14] MEDS ORDERED: OPTIRAY 320 100ml IV ONE (16:03)
[2021-12-14] MEDS ORDERED: LIDOCAINE 1%/EPINEPHRINE 1:100,000 50 ML VIAL ONE (16:31)
[2021-12-14] MEDS ORDERED: ATROPINE SULFATE 0.1 MG/ML 10ML SYR IV PRN (16:32)
[2021-12-14] MEDS ORDERED: ePHEDrine sulfate 50 MG/ML AMP IV PRN (16:32)
[2021-12-14] MEDS ORDERED: HYDROmorphone INJ 2 MG/ML SYR/VIAL IV PRN (16:32)
[2021-12-14] MEDS ORDERED: ONDANSETRON INJ 2 MG/ML 2 ML VIAL IV PRN ×2 (16:32→18:52)
--- NOTE | 2021-12-14 16:34 | CT Scan Report ---
CT OF THE ABDOMEN AND PELVIS WITH CONTRAST CLINICAL HISTORY: Perirectal abscess. COMPARISON STUDY: CT of the abdomen and pelvis January 28, 2017. TECHNIQUE: Following IV administration of 94 mL of Optiray, axial images of the abdomen and pelvis we re obtained from the lung bases to the proximal femurs. Images were reviewed in the axial, sagittal, and coronal planes. IV contrast was administered without complication. Automated exposure control wa s utilized for the study. A dose lowering technique was utilized adhering to the principles of ALARA . CT DOSE: 888.54 mGycm FINDINGS: A calcific granuloma within the left lower lobe is unchanged. This is benign. No pneumatosi s, free air or portal venous gas is present. The gallbladder is mildly distended. There is no pericho lecystic infiltration. The liver, spleen, adrenal glands, kidneys and pancreas are unremarkable. No h ydronephrosis. No biliary or pancreatic ductal dilatation. There is no evidence for a bowel obstructi on. Colonic diverticulosis is noted without evidence for acute diverticulitis. Major vasculature is p atent. Asymmetrically mildly enlarged right inguinal and iliac chain lymph nodes are noted. Index rig ht inguinal node on axial image 445 of 571 measures 1.5 cm in short axis diameter. Index right iliac chain node on image 382 measures 1.1 cm. A Rico balloon is present within the bladder which is colla psed. Note is made of extensive soft tissue gas within the right perineum which extends to the base o f the scrotum. There is associated stranding which extends to the right buttock. Note is made of an a ssociated complex right perianal abscess which contains gas and fluid. This collection measures 3.8 x 2.6 cm. Collection extends superiorly along the right aspect of the prostate. There is an adjacent s uspected fistula which extends through the external sphincter. IMPRESSION: 1. Extensive infectious process within the right perineum with soft tissue gas and stranding. This in fectious process extends from the right buttock to the base of the right hemiscrotum and raises the p ossibility of necrotizing fasciitis. Associated complex right perianal abscess, measuring 3.8 x 2.6 c m with associated fistula which likely extends through the external sphincter. Surgical consultation is recommended. 2. Mildly enlarged right inguinal and iliac chain lymph nodes which are likely reactive. ACT 112: Negative or not required by law. Electronically signed by: Manuel Nazario M.D. 12/14/2021 4:33 PM
[2021-12-14] MEDS ORDERED: MIDAZOLAM HCL 1 MG/ML 2ML VIAL ONE (16:38)
[2021-12-14] MEDS ORDERED: fentaNYL citrate 100 MCG/2 ML VIAL ONE (16:38)
[2021-12-14] MEDS ORDERED: ONDANSETRON INJ 2 MG/ML 2 ML VIAL ONE (16:39)
[2021-12-14] MEDS ORDERED: DEXAMETHASONE SOD INJ 4 MG/ML VIAL ONE (16:39)
[2021-12-14] MEDS ORDERED: PROPOFOL IV EMULSION 10 MG/ML 20 ML VIAL IV ONE (17:23)
[2021-12-14] MEDS ORDERED: ROCURONIUM BROMIDE 10 MG/ML 5 ML VIAL IV ONE (17:23)
[2021-12-14] MEDS ORDERED: LIDOCAINE 2% 2 ML VIAL/AMP(20MG/ML) INFIL ONE (17:23)
[2021-12-14] MEDS ORDERED: SUGAMMADEX SODIUM 200 MG/2 ML VIAL IV ONE (17:24)
--- NOTE | 2021-12-14 17:30 | Operative Report ---
Post Operative Report Pre & Post Diagnosis Operation Date: 12/14/21 08:10 Pre-Op Diagnosis: Gaby-rectal Abcess Post-Op Diagnosis: Gaby- Rectal Abcess I identified the patient and participated in the time-out.: Yes Procedure Operation Date: 12/14/21 08:10 Actual Procedures p Incision and Drainage Perirectal Abscess(Right) - Silvano Cui MD Surgeon Silvano Cui MD Oven Heater None Estimated Blood Loss 5 Findings Consistent with Post-Op Diagnosis Necrotizing infection of the soft tissue of the perianal tissues on the right; significant amount of purulent fluid returned; cultures taken; circumferential firm friable mass lesion of the anal verge Specimens Cultures for aerobic and anaerobic bacteria; incisional biopsy of circumferential lesion of anal verge Anesthesia Type General Complications No immediate complications Description of Procedure Patient was taken to the operating room, placed supine on the operating table. A timeout was performed, perioperative antibiotics were administered, SCDs were placed. After adequate anesthesia and allergies was obtained, he was placed in lithotomy position and was prepped and draped in the normal sterile fashion. Local anesthetic was injected into and around the perianal region. An exam of the perianal region noted a significant circumferential firm but friable lesion at the anal verge. The digital exam yielded a narrowed anal canal, friable and bleeding. An incisional biopsy was taken of this lesion and sent off for specimen. Cruciate incision was made in the perianal tissues on the right side in the fluctuant area. We entered a cavity of purulent fluid and significant necrotic tissue. Cultures were taken. Necrotic tissue was excised with the electrocautery. The cavity was pulse irrigated. The necrotic tissue was removed back to bleeding healthy appearing tissue. The extent of the cavity extended to the base of the scrotum but did not enter the scrotal area. Attention was turned to hemostasis, and the cavity was again pulse irrigated. The cavity was packed wet-to-dry with Kerlix. The anal canal was packed with iodoform gauze. Dressings were applied. He tolerated the procedure without complication, was transferred in stable condition to the PACU. All instrument, needle, and sponge counts were correct at the end of the case. I attest to the content of the Intraoperative Record and any orders documented therein. Any exceptions are noted below.
[2021-12-14] MEDS: fentaNYL citrate 100 MCG/2 ML VIAL IV PRN ×2 (18:07→18:17)
--- NOTE | 2021-12-14 18:24 | Anesthesiology Progress Note ---
Date of Service December 14, 2021 Anesthesia Post Procedure Vital Signs Vital Signs: Temp Pulse Pulse Resp BP BP Pulse Ox 12/14/21 18:15 98 H 14 102/61 97 12/14/21 18:05 101 H 18 111/68 91 12/14/21 17:55 102 H 14 105/75 96 12/14/21 17:46 104 H 30 H 108/82 98 12/14/21 17:39 36.4 C L 97 H 20 125/82 98 12/14/21 16:20 38 C H 113 H 24 94/63 L 93 12/14/21 15:36 97 12/14/21 14:52 127 H 18 98 12/14/21 14:19 36.8 C 127 H 18 129/75 98 Pain Intensity Rectal: Pain Intensity: 4 Transfer of Care Handoff Completed per policy Notes Mental Status: alert / awake / arousable and participated in evaluation Patient Amnestic to Procedure: Yes Nausea / Vomiting: adequately controlled Pain: adequately controlled Airway Patency, RR, SpO2: stable & adequate BP & HR: stable & adequate Hydration State: stable & adequate Anesthetic Complications: no major complications apparent and Pt Satisfied with anesthetic care
[2021-12-14] MEDS ORDERED: diphenhydrAMINE 50 MG/ML VIAL IV PRN (18:52)
[2021-12-14] MEDS ORDERED: ACETAMINOPHEN 325 MG TAB PO PRN (18:52)
[2021-12-14] MEDS ORDERED: PROMETHAZINE HCL 12.5 MG in SODIUM CHLORIDE 0.9% 50 ML IV PRN (18:52)
[2021-12-14] MEDS ORDERED: MoRPHine SULFATE 2 MG/ML CARP IV PRN (18:52)
[2021-12-14] MEDS: LACTATED RINGER'S 1,000 ML IV SCH (19:32)
[2021-12-14] MEDS: ENOXAPARIN INJ 40 MG/0.4 ML SYR SQ SCH (21:48)
[2021-12-15] MEDS: LACTATED RINGER'S 1,000 ML IV SCH ×2 (01:44→16:55)
[2021-12-15] MEDS: oxyCODONE HCL IR 5 MG TAB (IMMEDIATE RELEASE) PO PRN (06:21)
--- NOTE | 2021-12-15 07:16 | Electrocardiogram Report ---
Test Reason : Blood Pressure : / mmHG Vent. Rate : 135 BPM Atrial Rate : 135 BPM P-R Int : 126 ms QRS Dur : 078 ms QT Int : 298 ms P-R-T Axes : 055 042 026 degrees QTc Int : 447 ms Sinus tachycardia with Premature atrial complexes Cannot rule out Anterior infarct , age undetermined Abnormal ECG When compared with ECG of 27-OCT-2017 22:30, HR has increased Confirmed by Fly Helm ([id number]) on 12/15/2021 7:16:07 AM Referred By: REFERRED SELF Confirmed By:Fly Helm
[2021-12-15 07:34] LABS: Hematocrit (blood only) 35.3 % (42-52); Hemoglobin 12.3 g/dL (14.0-18.0); Mean Corpuscular Hemoglobin 31.5 pg (25-34); Mean Corpuscular Hgb Conc 34.8 g/dL (32-36); Mean Corpuscular Volume 90.3 fL (80-100); Mean Platelet Volume 9.2 fL (7.4-10.4); Platelet Count 234 K/uL (130-400); RDW Coefficient of Variation 13.6 % (11.5-14.5); RDW Standard Deviation 44.7 fL (36.4-46.3); Red Blood Count 3.91 M/uL (4.7-6.1); White Blood Count 19.47 K/uL (4.8-10.8)
[2021-12-15 08:09] LABS: Albumin Globulin Ratio 0.8 (0.9-2); Albumin Level 2.6 gm/dl (3.4-5.0); BUN Creatinine Ratio 23.5 (10-20); Bilirubin,Total 0.4 mg/dl (0.2-1.0); Creatinine Clr Calc Pharmacy 100.8 ml/min; Est GFR (African American) 107.5 ml/min; Est GFR (Non-African American) 92.7 ml/min; Globulin 3.1 gm/dl (2.5-4.0); Potassium 4.1 mmol/L (3.5-5.1); Total Protein 5.7 gm/dl (6.0-8.3)
[2021-12-15 08:24] LABS: Basophils # (auto) 0.02 K/uL (0-0.2); Basophils % (auto) 0.1 %; Dohle Bodies 1+; Immature Granulocytes # (auto) 0.14 K/uL (0.00-0.02); Immature Granulocytes % (auto) 0.7 %; Lymphocytes % (auto) 3.1 %; Monocytes # (auto) 1.22 K/uL (0.11-0.59); Monocytes % (auto) 6.3 %; Neutrophils # (auto) 17.49 K/uL (1.4-6.5); Neutrophils % (auto) 89.8 %; Toxic Granulation 1+
--- NOTE | 2021-12-15 10:27 | Surgery Progress Note ---
Date of Service December 15, 2021 Assessment & Plan (1) Perirectal abscess: (2) Systemic inflammatory response syndrome (SIRS) due to infection: Plan: POD # 1 s/p incision and drainage of right perirectal abscess and biopsy of anal tissue -afebrile, leukocytosis of 19k (22K preop) - AVSS, tachycardia resolved - adequate urine output - pain improved and controlled - tolerating diet Plan: Continue pain management as needed will start BID Colace given narcotic use to present constipation/straining Discussed wound culture findings with Pharmacy , will change IV Dapto to IV Rocephin and Flagyl Continue Rico catheter Continue lovenox and scds for DVT prophylaxis oob to chair and ambulate today Will consult wound care to see tomorrow, keep packing in place for today await biopsy results will need a few days of IV antibiotics Dr. Cui has seen and examined pt, agrees with above. Admission and Anticipated Discharge Date Admission Date: December 14, 2021 Subjective feeling better today, pain is less severe and controlled no nausea or vomiting tolerated full liquids Rico still present Physical Exam Constitutional: WD/WN, vitals as above Neck: normal visual inspection and trachea midline Respiratory: normal respiratory effort; no respiratory distress, no labored breathing and no retractions Gastrointestinal (Abdomen): External perianal exam with right open wound with packing present. Packing present within the rectum Tenderness to palpation however surrounding induration has significantly improved. Some skin necrosis surrounding incision and drainage site Skin: no rashes, warm and dry Psychiatric: A+Ox3, euthymic affect Results & Data ([facility]) Vital Signs (Past 12 Hours) Vital Signs Temp Pulse Resp BP BP Pulse Ox 12/15/21 07:20 36.7 C 85 18 108/73 96 12/15/21 04:04 36.5 C 83 16 112/77 94 12/14/21 22:31 36.4 C L 91 H 16 102/70 93 Laboratory Results 12/15/21 12/15/21 12/15/21 Range/Units 07:11 07:11 07:11 WBC 19.47 H (4.8-10.8) K/uL RBC 3.91 L (4.7-6.1) M/uL Hgb 12.3 L (14.0-18.0) g/dL Hct 35.3 L (42-52) % MCV 90.3 (80-100) fL MCH 31.5 (25-34) pg MCHC 34.8 (32-36) g/dL RDW Std Deviation 44.7 (36.4-46.3) fL RDW Coeff of Raul 13.6 (11.5-14.5) % Plt Count 234 (130-400) K/uL MPV 9.2 (7.4-10.4) fL Immature Gran % (Auto) 0.7 % Neut % (Auto) 89.8 % Lymph % (Auto) 3.1 % [place] % (Auto) 6.3 % Eos % (Auto) 0.0 % Baso % (Auto) 0.1 % Neut # (Auto) 17.49 H (1.4-6.5) K/uL Lymph # (Auto) 0.60 L (1.2-3.4) K/uL [place] # (Auto) 1.22 H (0.11-0.59) K/uL Eos # (Auto) 0.00 (0-0.5) K/uL Baso # (Auto) 0.02 (0-0.2) K/uL Immature Gran # (Auto) 0.14 H (0.00-0.02) K/uL Toxic Granulation 1+ Dohle Bodies 1+ PT (9.0-12.0) Seconds INR (0.9-1.1) APTT (21.0-31.0) Seconds PTT Ratio Sodium 135 L (136-145) mmol/L Potassium 4.1 (3.5-5.1) mmol/L Chloride 104 (98-107) mmol/L Carbon Dioxide 25 (21-32) mmol/L Anion Gap 6 (3-11) BUN 20 (6-23) mg/dl Creatinine 0.85 D (0.6-1.4) mg/dl Est Cr Clr Drug Dosing 100.8 ml/min Est GFR ( Amer) 107.5 ml/min Est GFR (Non-Af Amer) 92.7 ml/min BUN/Creatinine Ratio 23.5 H (10-20) Glucose 124 H (70-99(Fasting)) mg/dl Lactate (0.4-2.0) mmol/L Calcium 8.0 L (8.5-10.1) mg/dl Magnesium (1.7-2.4) mg/dl Total Bilirubin 0.4 D (0.2-1.0) mg/dl AST 9 L (13-39) U/L ALT 10 (7-52) U/L Alkaline Phosphatase 69 (34-104) U/L Total Protein 5.7 L D (6.0-8.3) gm/dl Albumin 2.6 L (3.4-5.0) gm/dl Globulin 3.1 (2.5-4.0) gm/dl Albumin/Globulin Ratio 0.8 L (0.9-2) Procalcitonin (0-0.5) ng/ml Urine Color Urine Appearance (Clear) Urine pH (4.5-7.5) Ur Specific [place] (1.000-1.030) Urine Protein (Negative) Urine Glucose (UA) (Negative) Urine Ketones (Negative) Urine Blood (Negative) Urine Nitrite (Negative) Urine Bilirubin (Negative) Urine Urobilinogen (Negative) Ur Leukocyte Esterase (Negative) Urine WBC (Auto) (0-5) /hpf Urine RBC (Auto) (0-4) /hpf U Hyaline Cast (Auto) (0-5) /lpf U Epithel Cells (Auto) (0-5) /lpf Urine Bacteria (Auto) (Negative) Hepatitis C Ab (EIA) Pending Hep C Ab Signal/Cutoff Pending SARS-CoV-2, RNA, NAAT (NEGATIVE) 12/14/21 12/14/21 12/14/21 Range/Units 19:06 15:27 15:10 WBC (4.8-10.8) K/uL RBC (4.7-6.1) M/uL Hgb (14.0-18.0) g/dL Hct (42-52) % MCV (80-100) fL MCH (25-34) pg MCHC (32-36) g/dL RDW Std Deviation (36.4-46.3) fL RDW Coeff of Raul (11.5-14.5) % Plt Count (130-400) K/uL MPV (7.4-10.4) fL Immature Gran % (Auto) % Neut % (Auto) % Lymph % (Auto) % [place] % (Auto) % Eos % (Auto) % Baso % (Auto) % Neut # (Auto) (1.4-6.5) K/uL Lymph # (Auto) (1.2-3.4) K/uL [place] # (Auto) (0.11-0.59) K/uL Eos # (Auto) (0-0.5) K/uL Baso # (Auto) (0-0.2) K/uL Immature Gran # (Auto) (0.00-0.02) K/uL Toxic Granulation Dohle Bodies PT (9.0-12.0) Seconds INR (0.9-1.1) APTT (21.0-31.0) Seconds PTT Ratio Sodium (136-145) mmol/L Potassium (3.5-5.1) mmol/L Chloride (98-107) mmol/L Carbon Dioxide (21-32) mmol/L Anion Gap (3-11) BUN (6-23) mg/dl Creatinine (0.6-1.4) mg/dl Est Cr Clr Drug Dosing ml/min Est GFR ( Amer) ml/min Est GFR (Non-Af Amer) ml/min BUN/Creatinine Ratio (10-20) Glucose (70-99(Fasting)) mg/dl Lactate 1.1 (0.4-2.0) mmol/L Calcium (8.5-10.1) mg/dl Magnesium (1.7-2.4) mg/dl Total Bilirubin (0.2-1.0) mg/dl AST (13-39) U/L ALT (7-52) U/L Alkaline Phosphatase (34-104) U/L Total Protein (6.0-8.3) gm/dl Albumin (3.4-5.0) gm/dl Globulin (2.5-4.0) gm/dl Albumin/Globulin Ratio (0.9-2) Procalcitonin (0-0.5) ng/ml Urine Color [place] Urine Appearance Clear (Clear) Urine pH 5.5 (4.5-7.5) Ur Specific [place] 1.022 (1.000-1.030) Urine Protein 1+ H (Negative) Urine Glucose (UA) Negative (Negative) Urine Ketones 1+ H (Negative) Urine Blood Negative (Negative) Urine Nitrite Negative (Negative) Urine Bilirubin 1+ H (Negative) Urine Urobilinogen Positive H (Negative) Ur Leukocyte Esterase Trace H (Negative) Urine WBC (Auto) 1-5 (0-5) /hpf Urine RBC (Auto) 5-10 H (0-4) /hpf U Hyaline Cast (Auto) 10-30 H (0-5) /lpf U Epithel Cells (Auto) >30 H (0-5) /lpf Urine Bacteria (Auto) Negative (Negative) Hepatitis C Ab (EIA) Hep C Ab Signal/Cutoff SARS-CoV-2, RNA, NAAT NEGATIVE (NEGATIVE) 12/14/21 12/14/21 12/14/21 Range/Units 15:00 15:00 15:00 WBC (4.8-10.8) K/uL RBC (4.7-6.1) M/uL Hgb (14.0-18.0) g/dL Hct (42-52) % MCV (80-100) fL MCH (25-34) pg MCHC (32-36) g/dL RDW Std Deviation (36.4-46.3) fL RDW Coeff of Raul (11.5-14.5) % Plt Count (130-400) K/uL MPV (7.4-10.4) fL Immature Gran % (Auto) % Neut % (Auto) % Lymph % (Auto) % [place] % (Auto) % Eos % (Auto) % Baso % (Auto) % Neut # (Auto) (1.4-6.5) K/uL Lymph # (Auto) (1.2-3.4) K/uL [place] # (Auto) (0.11-0.59) K/uL Eos # (Auto) (0-0.5) K/uL Baso # (Auto) (0-0.2) K/uL Immature Gran # (Auto) (0.00-0.02) K/uL Toxic Granulation Dohle Bodies PT 12.6 H (9.0-12.0) Seconds INR 1.2 H (0.9-1.1) APTT 34.1 H (21.0-31.0) Seconds PTT Ratio 1.2 Sodium 135 L (136-145) mmol/L Potassium 4.0 (3.5-5.1) mmol/L Chloride 100 (98-107) mmol/L Carbon Dioxide 24 (21-32) mmol/L Anion Gap 11 (3-11) BUN 19 (6-23) mg/dl Creatinine 1.19 (0.6-1.4) mg/dl Est Cr Clr Drug Dosing 72.2 ml/min Est GFR ( Amer) 74.9 ml/min Est GFR (Non-Af Amer) 64.6 ml/min BUN/Creatinine Ratio 16.0 (10-20) Glucose 115 H (70-99(Fasting)) mg/dl Lactate 2.8 H* (0.4-2.0) mmol/L Calcium 8.9 (8.5-10.1) mg/dl Magnesium 1.9 (1.7-2.4) mg/dl Total Bilirubin 1.0 (0.2-1.0) mg/dl AST 14 (13-39) U/L ALT 13 (7-52) U/L Alkaline Phosphatase 96 (34-104) U/L Total Protein 7.3 (6.0-8.3) gm/dl Albumin 3.4 (3.4-5.0) gm/dl Globulin 3.9 (2.5-4.0) gm/dl Albumin/Globulin Ratio 0.9 (0.9-2) Procalcitonin (0-0.5) ng/ml Urine Color Urine Appearance (Clear) Urine pH (4.5-7.5) Ur Specific [place] (1.000-1.030) Urine Protein (Negative) Urine Glucose (UA) (Negative) Urine Ketones (Negative) Urine Blood (Negative) Urine Nitrite (Negative) Urine Bilirubin (Negative) Urine Urobilinogen (Negative) Ur Leukocyte Esterase (Negative) Urine WBC (Auto) (0-5) /hpf Urine RBC (Auto) (0-4) /hpf U Hyaline Cast (Auto) (0-5) /lpf U Epithel Cells (Auto) (0-5) /lpf Urine Bacteria (Auto) (Negative) Hepatitis C Ab (EIA) Hep C Ab Signal/Cutoff SARS-CoV-2, RNA, NAAT (NEGATIVE) 12/14/21 12/14/21 Range/Units 15:00 15:00 WBC 21.99 H (4.8-10.8) K/uL RBC 4.45 L (4.7-6.1) M/uL Hgb 14.0 (14.0-18.0) g/dL Hct 40.2 L (42-52) % MCV 90.3 (80-100) fL MCH 31.5 (25-34) pg MCHC 34.8 (32-36) g/dL RDW Std Deviation 44.7 (36.4-46.3) fL RDW Coeff of Raul 13.6 (11.5-14.5) % Plt Count 232 (130-400) K/uL MPV 9.4 (7.4-10.4) fL Immature Gran % (Auto) 1.8 % Neut % (Auto) 87.4 % Lymph % (Auto) 4.9 % [place] % (Auto) 5.7 % Eos % (Auto) 0.1 % Baso % (Auto) 0.1 % Neut # (Auto) 19.21 H (1.4-6.5) K/uL Lymph # (Auto) 1.08 L (1.2-3.4) K/uL [place] # (Auto) 1.26 H (0.11-0.59) K/uL Eos # (Auto) 0.02 (0-0.5) K/uL Baso # (Auto) 0.02 (0-0.2) K/uL Immature Gran # (Auto) 0.40 H (0.00-0.02) K/uL Toxic Granulation Dohle Bodies PT (9.0-12.0) Seconds INR (0.9-1.1) APTT (21.0-31.0) Seconds PTT Ratio Sodium (136-145) mmol/L Potassium (3.5-5.1) mmol/L Chloride (98-107) mmol/L Carbon Dioxide (21-32) mmol/L Anion Gap (3-11) BUN (6-23) mg/dl Creatinine (0.6-1.4) mg/dl Est Cr Clr Drug Dosing ml/min Est GFR ( Amer) ml/min Est GFR (Non-Af Amer) ml/min BUN/Creatinine Ratio (10-20) Glucose (70-99(Fasting)) mg/dl Lactate (0.4-2.0) mmol/L Calcium (8.5-10.1) mg/dl Magnesium (1.7-2.4) mg/dl Total Bilirubin (0.2-1.0) mg/dl AST (13-39) U/L ALT (7-52) U/L Alkaline Phosphatase (34-104) U/L Total Protein (6.0-8.3) gm/dl Albumin (3.4-5.0) gm/dl Globulin (2.5-4.0) gm/dl Albumin/Globulin Ratio (0.9-2) Procalcitonin 1.31 H (0-0.5) ng/ml Urine Color Urine Appearance (Clear) Urine pH (4.5-7.5) Ur Specific [place] (1.000-1.030) Urine Protein (Negative) Urine Glucose (UA) (Negative) Urine Ketones (Negative) Urine Blood (Negative) Urine Nitrite (Negative) Urine Bilirubin (Negative) Urine Urobilinogen (Negative) Ur Leukocyte Esterase (Negative) Urine WBC (Auto) (0-5) /hpf Urine RBC (Auto) (0-4) /hpf U Hyaline Cast (Auto) (0-5) /lpf U Epithel Cells (Auto) (0-5) /lpf Urine Bacteria (Auto) (Negative) Hepatitis C Ab (EIA) Hep C Ab Signal/Cutoff SARS-CoV-2, RNA, NAAT (NEGATIVE) Microbiology 12/14/21 17:30 Gram Stain - Final Rectal Abscess
[2021-12-15] MEDS: KETOROLAC 30 MG/ML VIAL IV PRN (11:42)
[2021-12-15] MEDS: DOCUSATE SODIUM 100 MG CAP PO SCH ×2 (11:42→20:25)
[2021-12-15] MEDS: metroNIDAZOLE 500 MG/100 ML BAG IV SCH ×2 (12:01→19:15)
[2021-12-15] MEDS ORDERED: DAPTOmycin 300 MG in SYRINGE 0 ML IV SCH (14:00)
[2021-12-15] MEDS: cefTRIAXone SODIUM 2,000 MG in DEXTROSE 5% 50 ML IV SCH (15:03)
[2021-12-15] MEDS: GABAPENTIN 600 MG TAB PO SCH ×2 (16:53→20:25)
[2021-12-15] MEDS: ENOXAPARIN INJ 40 MG/0.4 ML SYR SQ SCH (20:24)
[2021-12-15] MEDS: PANTOprazole 40 MG TAB PO SCH (20:25)
[2021-12-16] MEDS: metroNIDAZOLE 500 MG/100 ML BAG IV SCH ×3 (01:57→17:30)
[2021-12-16] MEDS: oxyCODONE HCL IR 5 MG TAB (IMMEDIATE RELEASE) PO PRN (04:06)
[2021-12-16] MEDS: LACTATED RINGER'S 1,000 ML IV SCH ×2 (04:08→18:00)
[2021-12-16] MEDS: KETOROLAC 30 MG/ML VIAL IV PRN (06:12)
[2021-12-16 08:27] LABS: Basophils # (auto) 0.02 K/uL (0-0.2); Basophils % (auto) 0.2 %; Eosinophils # (auto) 0.03 K/uL (0-0.5); Eosinophils % (auto) 0.3 %; Hematocrit (blood only) 36.2 % (42-52); Hemoglobin 11.9 g/dL (14.0-18.0); Immature Granulocytes # (auto) 0.11 K/uL (0.00-0.02); Lymphocytes # (auto) 1.35 K/uL (1.2-3.4); Lymphocytes % (auto) 11.8 %; Mean Corpuscular Hemoglobin 30.2 pg (25-34); Mean Corpuscular Hgb Conc 32.9 g/dL (32-36); Mean Corpuscular Volume 91.9 fL (80-100); Mean Platelet Volume 9.4 fL (7.4-10.4); Monocytes # (auto) 0.71 K/uL (0.11-0.59); Monocytes % (auto) 6.2 %; Neutrophils # (auto) 9.19 K/uL (1.4-6.5); Neutrophils % (auto) 80.5 %; Platelet Count 242 K/uL (130-400); RDW Coefficient of Variation 13.7 % (11.5-14.5); RDW Standard Deviation 46.3 fL (36.4-46.3); Red Blood Count 3.94 M/uL (4.7-6.1); White Blood Count 11.41 K/uL (4.8-10.8)
[2021-12-16 08:44] LABS: Albumin Globulin Ratio 0.9 (0.9-2); Albumin Level 2.5 gm/dl (3.4-5.0); BUN Creatinine Ratio 23.2 (10-20); Bilirubin,Total 0.3 mg/dl (0.2-1.0); Calcium 7.7 mg/dl (8.5-10.1); Creatinine Clr Calc Pharmacy 86.6 ml/min; Est GFR (African American) 93.6 ml/min; Est GFR (Non-African American) 80.7 ml/min; Globulin 2.9 gm/dl (2.5-4.0); Potassium 3.5 mmol/L (3.5-5.1); Total Protein 5.4 gm/dl (6.0-8.3)
[2021-12-16] MEDS: GABAPENTIN 600 MG TAB PO SCH ×4 (08:48→21:22)
[2021-12-16] MEDS: DOCUSATE SODIUM 100 MG CAP PO SCH ×2 (08:48→21:22)
[2021-12-16] MEDS: SERTRALINE HCL 50 MG TABLET PO SCH (08:48)
[2021-12-16] MEDS: cefTRIAXone SODIUM 2,000 MG in DEXTROSE 5% 50 ML IV SCH (09:02)
[2021-12-16] MEDS ORDERED: HYDROCODONE/ACETAMOPHEN 5/325MG TAB PO PRN (09:33)
--- NOTE | 2021-12-16 09:38 | Surgery Progress Note ---
Date of Service December 16, 2021 Assessment & Plan (1) Perirectal abscess: (2) Systemic inflammatory response syndrome (SIRS) due to infection: Plan: POD # 2 s/p incision and drainage of right perirectal abscess and biopsy of anal tissue - afebrile, leukocytosis of 11k (22K preop) - AVSS, tachycardia resolved - adequate urine output - pain improving and controlled - tolerating diet Plan: Continue pain management as needed continue BID Colace Continue IV Rocephin and Flagyl discontinue [place] catheter Continue lovenox and scds for DVT prophylaxis oob to chair and ambulate today daily wound changes with wet kerlix and ABD await biopsy results will need a few days of IV antibiotics [facility] surgery covering this weekend. Dr. Cui has seen and examined pt, agrees with above. Admission and Anticipated Discharge Date Admission Date: December 14, 2021 Subjective had some pain this morning, just had pain medication tolerating diet no fevers or chills no n/v Physical Exam Constitutional: WD/WN, vitals as above no acute distress and not ill appearing Neck: normal visual inspection and trachea midline Respiratory: normal respiratory effort; no respiratory distress Gastrointestinal (Abdomen): Perirectal exam: There is site moderate amount of induration and erythema of the right perirectal region extending up the right buttock and down right scrotum but improved. The wound is with healthy tissue no necrosis. Wound measures about 3.5 x 2.5 and 4 cm deep with 1.5 cm undermining. Packing removed from rectum and bleeding present. Skin: no rashes, warm and dry Psychiatric: Orientation: alert and oriented x 3 Results & Data ([facility]) Vital Signs (Past 12 Hours) Vital Signs Temp Pulse Resp BP BP Pulse Ox 12/16/21 08:14 36.8 C 80 18 118/71 96 12/15/21 22:28 36.6 C 90 16 119/78 95 Laboratory Results 12/16/21 12/16/21 12/15/21 Range/Units 07:50 07:50 07:11 WBC 11.41 H (4.8-10.8) K/uL RBC 3.94 L (4.7-6.1) M/uL Hgb 11.9 L (14.0-18.0) g/dL Hct 36.2 L (42-52) % MCV 91.9 (80-100) fL MCH 30.2 (25-34) pg MCHC 32.9 (32-36) g/dL RDW Std Deviation 46.3 (36.4-46.3) fL RDW Coeff of Raul 13.7 (11.5-14.5) % Plt Count 242 (130-400) K/uL MPV 9.4 (7.4-10.4) fL Immature Gran % (Auto) 1.0 % Neut % (Auto) 80.5 % Lymph % (Auto) 11.8 % [place] % (Auto) 6.2 % Eos % (Auto) 0.3 % Baso % (Auto) 0.2 % Neut # (Auto) 9.19 H (1.4-6.5) K/uL Lymph # (Auto) 1.35 (1.2-3.4) K/uL [place] # (Auto) 0.71 H (0.11-0.59) K/uL Eos # (Auto) 0.03 (0-0.5) K/uL Baso # (Auto) 0.02 (0-0.2) K/uL Immature Gran # (Auto) 0.11 H (0.00-0.02) K/uL Sodium 137 (136-145) mmol/L Potassium 3.5 (3.5-5.1) mmol/L Chloride 106 (98-107) mmol/L Carbon Dioxide 27 (21-32) mmol/L Anion Gap 4 (3-11) BUN 23 (6-23) mg/dl Creatinine 0.99 (0.6-1.4) mg/dl Est Cr Clr Drug Dosing 86.6 ml/min Est GFR ( Amer) 93.6 ml/min Est GFR (Non-Af Amer) 80.7 ml/min BUN/Creatinine Ratio 23.2 H (10-20) Glucose 113 H (70-99(Fasting)) mg/dl Calcium 7.7 L (8.5-10.1) mg/dl Total Bilirubin 0.3 (0.2-1.0) mg/dl AST 14 (13-39) U/L ALT 14 (7-52) U/L Alkaline Phosphatase 62 (34-104) U/L Total Protein 5.4 L (6.0-8.3) gm/dl Albumin 2.5 L (3.4-5.0) gm/dl Globulin 2.9 (2.5-4.0) gm/dl Albumin/Globulin Ratio 0.9 (0.9-2) Hepatitis C Ab (EIA) NON-REACTIVE (NON-REACTIVE) Hep C Ab Signal/Cutoff 0.01 (<1.00) Microbiology 12/14/21 15:00 Aerobic Blood Culture - Preliminary Blood No growth in Aerobic bottle after 24 hours. Anaerobic Blood Culture - Preliminary No growth in Anaerobic bottle after 24 hours. 12/14/21 15:00 Aerobic Blood Culture - Preliminary Blood No growth in Aerobic bottle after 24 hours. Anaerobic Blood Culture - Preliminary No growth in Anaerobic bottle after 24 hours. 12/14/21 17:30 Gram Stain - Final Rectal Abscess Aerobic and Anaerobic Culture - Preliminary Pin-point growth present, reincubating.
[2021-12-16] MEDS ORDERED: MoRPHine SULFATE 2 MG/ML CARP IV PRN (09:43)
[2021-12-16] MEDS ORDERED: ACETAMINOPHEN 325 MG TAB PO PRN (09:43)
[2021-12-16] MEDS: HYDROCODONE/ACETAMOPHEN 5/325MG TAB PO PRN ×2 (11:26→21:22)
[2021-12-16] MEDS: PANTOprazole 40 MG TAB PO SCH (21:21)
[2021-12-16] MEDS: ENOXAPARIN INJ 40 MG/0.4 ML SYR SQ SCH (21:23)
[2021-12-17] MEDS: metroNIDAZOLE 500 MG/100 ML BAG IV SCH ×3 (03:36→17:21)
--- NOTE | 2021-12-17 05:19 | Surgery Progress Note ---
Date of Service December 17, 2021 Assessment & Plan (1) Perirectal abscess: Plan: Status post incision and drainage of perirectal abscess on 12/14/2021 (postop day #3) Continue antibiotics form of Rocephin and Flagyl MA: Preliminary operative cultures show probable gram-negative bacilli Continue analgesics Continue wound care Lovenox is in place for DVT prevention Plan is to continue IV antibiotics through the weekend Admission and Anticipated Discharge Date Admission Date: December 14, 2021 Supervising Physician Co-Signing Physician Notes Patient seen examined, labs reviewed, agree with above. 61-year-old male status post incision and drainage of perirectal abscess. Feels much better. On exam he is afebrile stable vitals. Dressing was changed, mild residual edema and erythema but no worsening infection. No apparent undrained fluid collections. Wound healing by secondary intent. WBC normalized, pathology pending. Continue IV antibiotics, Dr. Cui will be back on Sunday. Subjective Patient is resting comfortably in bed. He notes that he is eating without any nausea vomiting. He notes that he has moved his bowels since his surgery. He denies any fevers, shakes, chills. He does note pain at his surgical site Physical Exam Physical Exam: Patient's wound is covered with dressing with packing in place. We will examine wound further at time of rounds with attending physician. Results & Data ([facility]) Vital Signs (Past 12 Hours) Vital Signs Temp Pulse Resp BP Pulse Ox 12/16/21 22:55 36.8 C 82 16 150/82 H 96 PG Care Time/CCT Total # of Minutes Spent Total Time Spent with Patient: Total time spent is greater than 50% in coordination of care (as documented) at patient's floor/unit and/or counseling patient: Coding Level of Care Code None Diagnoses Perirectal abscess K61.1
[2021-12-17] MEDS: SERTRALINE HCL 50 MG TABLET PO SCH (08:02)
[2021-12-17] MEDS: GABAPENTIN 600 MG TAB PO SCH ×4 (08:03→20:18)
[2021-12-17] MEDS: DOCUSATE SODIUM 100 MG CAP PO SCH ×2 (08:03→20:18)
[2021-12-17] MEDS: HYDROCODONE/ACETAMOPHEN 5/325MG TAB PO PRN ×2 (08:03→20:17)
[2021-12-17 08:21] LABS: Hematocrit (blood only) 38.7 % (42-52); Hemoglobin 13.3 g/dL (14.0-18.0); Mean Corpuscular Hemoglobin 31.3 pg (25-34); Mean Corpuscular Hgb Conc 34.4 g/dL (32-36); Mean Corpuscular Volume 91.1 fL (80-100); Mean Platelet Volume 9.2 fL (7.4-10.4); Platelet Count 283 K/uL (130-400); RDW Standard Deviation 46.3 fL (36.4-46.3); Red Blood Count 4.25 M/uL (4.7-6.1); White Blood Count 9.23 K/uL (4.8-10.8)
[2021-12-17 08:39] LABS: Albumin Globulin Ratio 0.9 (0.9-2); Albumin Level 2.9 gm/dl (3.4-5.0); Bilirubin,Total 0.3 mg/dl (0.2-1.0); Calcium 8.2 mg/dl (8.5-10.1); Creatinine Clr Calc Pharmacy 94.2 ml/min; Est GFR (African American) 103.6 ml/min; Est GFR (Non-African American) 89.4 ml/min; Globulin 3.1 gm/dl (2.5-4.0); Potassium 3.8 mmol/L (3.5-5.1)
[2021-12-17 08:55] LABS: Basophils # (auto) 0.04 K/uL (0-0.2); Basophils % (auto) 0.4 %; Eosinophils # (auto) 0.13 K/uL (0-0.5); Eosinophils % (auto) 1.4 %; Immature Granulocytes # (auto) 0.49 K/uL (0.00-0.02); Immature Granulocytes % (auto) 5.3 %; Lymphocytes # (auto) 1.77 K/uL (1.2-3.4); Lymphocytes % (auto) 19.2 %; Monocytes # (auto) 0.83 K/uL (0.11-0.59); Neutrophils # (auto) 5.97 K/uL (1.4-6.5); Neutrophils % (auto) 64.7 %; Toxic Granulation 1+
[2021-12-17] MEDS: LACTATED RINGER'S 1,000 ML IV SCH (09:48)
[2021-12-17] MEDS: cefTRIAXone SODIUM 2,000 MG in DEXTROSE 5% 50 ML IV SCH (11:47)
[2021-12-17] MEDS: ENOXAPARIN INJ 40 MG/0.4 ML SYR SQ SCH (20:18)
[2021-12-17] MEDS: PANTOprazole 40 MG TAB PO SCH (20:19)
[2021-12-17] MEDS: MoRPHine SULFATE 4 MG/ML 1 ML CARP\\VIAL IV PRN (23:43)
[2021-12-18] MEDS: metroNIDAZOLE 500 MG/100 ML BAG IV SCH ×3 (01:57→16:51)
--- NOTE | 2021-12-18 06:34 | Surgery Progress Note ---
Date of Service December 18, 2021 Assessment & Plan (1) Perirectal abscess: Plan: Status post incision and drainage of perirectal abscess on 12/14/2021 (postop day #4) Continue antibiotics form of Rocephin and Flagyl; operative cultures have grown out Bacteroides Continue analgesics Continue local wound care Lovenox is in place for DVT prevention As previously noted, plan is to continue IV antibiotics through the weekend Admission and Anticipated Discharge Date Admission Date: December 14, 2021 Supervising Physician Co-Signing Physician Notes Patient seen and examined, agree with above. Status post incision and drainage of perirectal abscess. Feeling better, dressing changed, decreasing inflammation. cultures growing bacteroides. continue iv abx, Dr. Cui back tomorrow. path pending. Subjective Patient is resting comfortably in bed. He does not report any significant issues overnight. No fevers, shakes, chills. He denies any shortness of breath. He notes some discomfort at surgical site but otherwise feels good. Physical Exam Gastrointestinal (Abdomen): Soft, nondistended. Patient has pain over surgical site in his perirectal region. Packing is in place. (Will change packing on rounds with attending) Results & Data ([facility]) Vital Signs (Past 12 Hours) Vital Signs Temp Pulse Resp BP Pulse Ox 12/17/21 23:06 36.8 C 73 18 160/89 H 95 PG Care Time/CCT Total # of Minutes Spent Total Time Spent with Patient: Total time spent is greater than 50% in coordination of care (as documented) at patient's floor/unit and/or counseling patient: Coding Level of Care Code None Diagnoses Perirectal abscess K61.1
[2021-12-18] MEDS: cefTRIAXone SODIUM 2,000 MG in DEXTROSE 5% 50 ML IV SCH (09:04)
[2021-12-18] MEDS: GABAPENTIN 600 MG TAB PO SCH ×4 (09:05→20:07)
[2021-12-18] MEDS: SERTRALINE HCL 50 MG TABLET PO SCH (09:05)
[2021-12-18] MEDS: DOCUSATE SODIUM 100 MG CAP PO SCH ×2 (09:05→20:07)
[2021-12-18] MEDS: HYDROCODONE/ACETAMOPHEN 5/325MG TAB PO PRN ×3 (09:05→20:08)
[2021-12-18] MEDS: PANTOprazole 40 MG TAB PO SCH (20:07)
[2021-12-18] MEDS: ENOXAPARIN INJ 40 MG/0.4 ML SYR SQ SCH (20:08)
[2021-12-18] MEDS: LACTATED RINGER'S 1,000 ML IV SCH (21:10)
[2021-12-19] MEDS: metroNIDAZOLE 500 MG/100 ML BAG IV SCH ×3 (02:06→18:03)
[2021-12-19] MEDS: GABAPENTIN 600 MG TAB PO SCH ×4 (08:05→20:28)
[2021-12-19] MEDS: DOCUSATE SODIUM 100 MG CAP PO SCH ×2 (08:05→20:29)
[2021-12-19] MEDS: SERTRALINE HCL 50 MG TABLET PO SCH (08:05)
[2021-12-19] MEDS: HYDROCODONE/ACETAMOPHEN 5/325MG TAB PO PRN ×3 (08:09→20:27)
[2021-12-19] MEDS ORDERED: POLYETHYLENE (MIRALAX) 17 GM PACK PO STA (09:09)
[2021-12-19] MEDS: LOSARTAN POTASSIUM 50 MG TAB PO SCH (09:50)
[2021-12-19] MEDS: cefTRIAXone SODIUM 2,000 MG in DEXTROSE 5% 50 ML IV SCH (09:50)
--- NOTE | 2021-12-19 10:28 | Surgery Progress Note ---
Date of Service December 19, 2021 Assessment & Plan (1) Perirectal abscess: (2) Systemic inflammatory response syndrome (SIRS) due to infection: Plan: POD # 5 s/p incision and drainage of right perirectal abscess and biopsy of anal tissue - afebrile, leukocytosis resolved (22K preop) - AVSS, tachycardia resolved - adequate urine output - pain improving and controlled - tolerating diet Plan: Continue pain management as needed continue BID Colace Will ad PO Miralax today Continue IV Rocephin and Flagyl Continue lovenox and scds for DVT prophylaxis oob to chair and ambulate today daily wound changes with wet kerlix and ABD await biopsy results Consult case management for discharge planning. Will likely need home health, wound care clinic follow-up for daily packing/dressing changes. Dr. Cui has seen and examined pt, agrees with above. Admission and Anticipated Discharge Date Admission Date: December 14, 2021 Subjective feeling better today pain better having trouble keeping packing in with needing to have bowel movement, seems to keep falling out. no n/v tolerating diet Physical Exam Constitutional: WD/WN, vitals as above no acute distress and not ill appearing Neck: normal visual inspection and trachea midline Respiratory: normal respiratory effort; no respiratory distress Gastrointestinal (Abdomen): Perirectal exam: Wound with health granulation tissue at base and fibrinous tissue undermining medially to the rectum. Still moderate amount of induration laterally on the right buttock. No necrosis. Tender to palpation. Skin: no rashes, warm and dry Psychiatric: Orientation: alert and oriented x 3 Results & Data ([facility]) Vital Signs (Past 12 Hours) Vital Signs Temp Pulse Resp BP Pulse Ox 12/19/21 07:08 36.8 C 72 18 185/104 H 96 12/18/21 23:53 165/96 H 12/18/21 23:14 36.7 C 66 18 185/93 H 96 Laboratory Results Microbiology 12/14/21 17:30 Gram Stain - Final Rectal Abscess Aerobic and Anaerobic Culture - Final Bacteroides thetaiotaomicron
[2021-12-19] MEDS: LACTATED RINGER'S 1,000 ML IV SCH (10:49)
[2021-12-19] MEDS: hydrOXYzine HCl 25 MG TAB PO SCH (20:28)
[2021-12-19] MEDS: PANTOprazole 40 MG TAB PO SCH (20:29)
[2021-12-19] MEDS: ENOXAPARIN INJ 40 MG/0.4 ML SYR SQ SCH (20:29)
[2021-12-20] MEDS: metroNIDAZOLE 500 MG/100 ML BAG IV SCH ×3 (02:03→17:51)
[2021-12-20] MEDS: MoRPHine SULFATE 4 MG/ML 1 ML CARP\\VIAL IV PRN ×3 (05:01→14:38)
[2021-12-20 07:09] LABS: Creatinine Clr Calc Pharmacy 104.5 ml/min; Est GFR (African American) 109.1 ml/min; Est GFR (Non-African American) 94.1 ml/min
[2021-12-20] MEDS: SERTRALINE HCL 50 MG TABLET PO SCH (08:35)
[2021-12-20] MEDS: DOCUSATE SODIUM 100 MG CAP PO SCH ×2 (08:36→20:26)
[2021-12-20] MEDS: GABAPENTIN 600 MG TAB PO SCH ×4 (08:36→20:27)
[2021-12-20] MEDS: LOSARTAN POTASSIUM 50 MG TAB PO SCH (08:36)
--- NOTE | 2021-12-20 08:47 | Surgery Progress Note ---
Date of Service December 20, 2021 Assessment & Plan (1) Perirectal abscess: (2) Systemic inflammatory response syndrome (SIRS) due to infection: Plan: POD # 6 s/p incision and drainage of right perirectal abscess and biopsy of anal tissue - afebrile, leukocytosis resolved (22K preop) - AVSS, tachycardia resolved - adequate urine output - pain improving and controlled - tolerating diet Plan: Continue pain management as needed continue bowel regimen Continue IV Rocephin and Flagyl - will plan to switch to p.o. cefdinir and Flagyl at discharge Continue lovenox and scds for DVT prophylaxis out of bed /ambulation wound care: We will stop packing and leave the wound open for now. he will keep the appointment with [facility] next Sunday. Still awaiting biopsy results. Preliminary result of adenocarcinoma. Have discussed this finding with him. We will have him see Medical Oncology as well as colorectal surgery as an outpatient. Case management for discharge planning, possibly later on today. Admission and Anticipated Discharge Date Admission Date: December 14, 2021 Subjective This morning he still complains of fairly significant pain in his rectal/perianal area. He had morphine this morning. He denies nausea vomiting. He did have 3 bowel movements yesterday. The packing continues to fall out as soon as it is placed. Preliminary results from the anal biopsy demonstrates adenocarcinoma. Final results are pending. Physical Exam Constitutional: WD/WN, vitals as above no acute distress Neck: normal visual inspection and trachea midline Gastrointestinal (Abdomen): Inspection/Auscultation: abdomen not distended Percussion/Palpation: abdomen soft; abdomen nontender The perianal region with less erythema and induration, still significant tenderness to palpation Musculoskeletal: Extremities: no cyanosis and no clubbing Skin: no rashes, warm and dry Psychiatric: A+Ox3, euthymic affect Results & Data ([facility]) Vital Signs (Past 12 Hours) Vital Signs Temp Pulse Pulse Resp BP BP Pulse Ox 12/20/21 08:40 80 168/82 H 12/20/21 07:50 36.6 C 76 16 188/81 H 96 12/19/21 23:02 36.6 C 76 18 161/74 H 95 12/19/21 22:53 36.6 C 76 18 161/74 H 95
[2021-12-20] MEDS: cefTRIAXone SODIUM 2,000 MG in DEXTROSE 5% 50 ML IV SCH (09:45)
[2021-12-20] MEDS: HYDROCODONE/ACETAMOPHEN 5/325MG TAB PO PRN (10:16)
[2021-12-20] MEDS: PANTOprazole 40 MG TAB PO SCH (20:26)
[2021-12-20] MEDS: hydrOXYzine HCl 25 MG TAB PO SCH (20:27)
[2021-12-20] MEDS: HYDROmorphone HCL 2 MG TAB PO PRN (20:33)
[2021-12-20] MEDS: ENOXAPARIN INJ 40 MG/0.4 ML SYR SQ SCH (22:12)
[2021-12-21] MEDS: metroNIDAZOLE 500 MG/100 ML BAG IV SCH ×2 (02:11→10:49)
[2021-12-21] MEDS: HYDROmorphone HCL 2 MG TAB PO PRN ×2 (02:12→09:23)
[2021-12-21] MEDS: GABAPENTIN 600 MG TAB PO SCH (08:40)
[2021-12-21] MEDS: SERTRALINE HCL 50 MG TABLET PO SCH (08:40)
[2021-12-21] MEDS: DOCUSATE SODIUM 100 MG CAP PO SCH (08:40)
[2021-12-21] MEDS: LOSARTAN POTASSIUM 50 MG TAB PO SCH (08:41)
[2021-12-21] MEDS: MoRPHine SULFATE 4 MG/ML 1 ML CARP\\VIAL IV PRN (09:52)
[2021-12-21] MEDS: cefTRIAXone SODIUM 2,000 MG in DEXTROSE 5% 50 ML IV SCH (10:48)
--- NOTE | 2021-12-23 10:11 | Discharge Summary ---
Date of Service December 23, 2021 Admission HPI Per Admitting Provider 61-year-old gentleman presents with severe pain in his right perineal region extending to his scrotum. He states the pain began on Sunday and were accompanied by chills and sweats. The pain worsened over the weekend but significantly worsened this morning. He denies any drainage. He has been having trouble urinating and having bowel movements since the pain started. He denies nausea or vomiting. He denies chest pain or shortness of breath. Principal Diagnosis Perianal necrotizing abscess Anal stricture Discharge Data Allergies Allergy/AdvReac Type Severity Reaction Status Date / Time blue dye Allergy Intermediate HIVES, Verified 12/14/21 15:36 BLISTERS doxycycline Allergy Intermediate HIVES Verified 12/14/21 15:36 Fish Containing Products Allergy Intermediate HIVES, Verified 12/14/21 15:36 FEVER oseltamivir Allergy Intermediate HIVES, Verified 12/14/21 15:36 BLISTERS tetanus toxoid, adsorbed Allergy Intermediate FEVER Verified 12/14/21 15:36 amoxicillin Allergy Mild HIVES Verified 12/14/21 15:36 lisinopril Allergy Mild HIVES Verified 12/14/21 15:36 shellfish derived Allergy Mild ANAPHYLACTI Verified 12/14/21 15:36 C Consultations 12/14/21 14:56 Consult General Surgery Stat 12/14/21 15:28 ED Decision to Admit Stat Procedures Performed Operation Date: 12/14/21 08:10 Actual Procedures p Incision and Drainage Perirectal Abscess(Right) - Silvano Cui MD Ordered Studies 12/14/21 14:39 CT abd pelvis IV con only Stat Hospital Course (1) Perirectal abscess: Patient was taken to operating room from emergency department for incision and drainage of perianal/perirectal abscess. He was found to have significant necrotizing infection of the perianal tissues due to the infection but no signs of necrotizing fascitis. He also had narrowing of the anus on digital rectal examination intraoperatively and friable bleeding tissue therefore biopsy was performed. He tolerated procedure well and was transferred to recovery then to medical/surgical floor for postoperative care. He was placed on IV Clindamycin and IV Daptomycin in the emergency room and these were continued postop. Diet advanced as tolerated. Activity as tolerated. SCDs and Lovenox for DVT prophylaxis, IV Morphine and PO Percocet and IV Toradol as needed for pain. POD # 1 patient was afebrile, VSS, tachycardia resolved, WBC still elevated at 19k (22k preop). Pain moderate but controlled. Wound care nurse consulted for evaluation of the perianal wound. Wet to dry kerlix with gauze and ABD dressing was placed. These were changed daily. Culture showed multiple organisms and IV antibiotics were changed to IV Ceftriaxone and IV Flagyl. Patient was kept in hospital for pain management and IV antibiotics. Case management was consulted for discharge planning and potentially home health. POD# 5 patient was still having moderate pain requiring IV Morphine. WBC returned to normal. Tolerating diet. Still not significant bowel movement. PO Miralax added. The anal biopsy pathology was still pending. POD # 6 pain still moderate but vss and wbc still normal. Preliminary pathology report showing adenocarcinoma. Patient was informed of this preliminary report by Dr. Cui. Patient was discharged home on POD # 7 in stable condition. He will follow-up with wound clinic on Sunday12/26/21. He will be scheduled for outpatient medical oncology referral and colorectal. (2) Systemic inflammatory response syndrome (SIRS) due to infection: Total Time Total Time Spent Total Time Spent (In Minutes): 30 minutes Discharge Plan Discharge Items Patient Disposition: Home - Home Health Services Reason For Visit: PERIANAL NECROTIZING INFECTION Discharge Diagnosis: Perianal necrotizing abscess anal lesion Condition on Discharge: Good Activity: Per Instructions section Non-emergency contact: Primary Care Provider and Surgeon Call non-emergency contact if: you have any medication questions, your pain is not controlled, your pain is worsening, you have a fever, your temperature is above 101, your wound has increased redness, your wound has increased drainage and your wound pain has increased Follow-up/Referrals: Silvano Cui MD [Physician] - 12/28/21 9:15 am ([facility]- 2nd floor) Heather Peterson PA-C [Primary Care Provider] - 12/29/21 10:10 am ([address] [place] [address]) Diet: Regular Addtl Attending Provider Instructions: ACTIVITY RECOMMENDATIONS: * No heavy lifting for 1 week. MEDICATIONS: Resume previous medications unless instructed otherwise by your surgeon. * Percocet 5/325 mg 1 every 4 hours, as needed for pain * Colace 100 mg 2 times per day * Extra Strength Tylenol 500 - 1000 mg every 4 hours, as needed for pain * Ibuprofen 600 mg every 6 hours, as needed for pain SPECIAL CARE INSTRUCTIONS: * Perianal wound care: - no packing required at this time. Sitz baths/warm shower twice daily. * Sitz bath after each bowel movement. * Shower daily * Call the surgeon's office with any questions or concerns - (ex. temperature higher than 101 degrees F, excessive bleeding or pain). FOLLOW UP VISIT: If not already scheduled, please call the office to schedule a two week follow- up appointment. Office number . Pending Studies at Discharge: No Stand-Alone Forms: My [facility] [email or web address], Opioid Pain Management, Smoking Cessation Medications and DC Order Prescriptions: New hydromorphone [Dilaudid] 2 mg tablet 2 mg PO Q6H PRN (Reason: pain) Qty: 14 RF: 0 cefdinir 300 mg capsule 300 mg PO BID 10 Days Qty: 20 RF: 0 metronidazole 500 mg tablet 500 mg PO BID Qty: 20 RF: 0 Continued losartan 50 mg tablet 50 mg PO QAM RF: 0 gabapentin 600 mg tablet 600 mg PO QID RF: 0 pantoprazole 40 mg tablet,delayed release (DR/EC) 40 mg PO HS RF: 0 hydroxyzine HCl 25 mg tablet 25 - 50 mg PO HS RF: 0 sertraline 50 mg tablet 75 mg PO QAM RF: 0 Discharge Orders: Discharge Order (Routine); Ordered 12/21/21 Ordered By: Silvano Deluca/Other Patient Handouts: Nutrition for Wound Healing Admission Data Admit Date/Time: 12/14/21 17:42 Attending Provider: Silvano Cui Admit Provider: Silvano Cui Primary Care Provider: Heather Peterson Other Providers: Silvano Cui ; Jacob Howard [facility] Other Interventions: Discharge Summary Assessment (RN) Last Done: 12/21/21 11:11
== END 2021-12-21 12:19 | disposition home health service (06) | DRG 854 ==
LOC: ED 14:17 → OR 16:15 → 3N 17:42
DX: K61.1 Rectal abscess; K62.4 Stenosis of anus and rectum; F17.210 Nicotine dependence, cigarettes, uncomplicated; Z88.1 Allergy status to other antibiotic agents; Z88.7 Allergy status to serum and vaccine; M79.89 Other specified soft tissue disorders; C21.0 Malignant neoplasm of anus, unspecified; A41.9 Sepsis, unspecified organism

== ENCOUNTER 2022-07-28 14:31 | Inpatient (IN) ==
[2022-07-28] MEDS ORDERED: SODIUM CHLORIDE 0.9% 1000ML 1,000 ML IV ONE ×2 (14:49→16:19)
[2022-07-28] MEDS ORDERED: ONDANSETRON INJ 2 MG/ML 2 ML VIAL IV STA (14:50)
--- NOTE | 2022-07-28 14:51 | Emergency Department Note ---
Impression & Plan Acute hypokalemia ADMIT ED Provider Note HPI: The patient is a 62-year-old gentleman with history of adenocarcinoma of the rectum, presents the emergency department with a chief complaint of several days of generalized weakness, nausea, states he has not been able to eat or drink anything secondary to his nausea. Patient states he has not had very much energy and has not been getting out of bed very much. Patient states he was on chemotherapy and this was stopped about 1 month ago secondary to weight loss. On arrival here to the ED the patient is somewhat listless appearing but he is alert, he is hemodynamically stable on arrival, he is afebrile and saturating well on room air. Patient denies any focal complaint of pain. ROS: -General: Generalized weakness -GI: Nausea, diminished p.o. intake, recent weight loss *10 point review systems was conducted and is otherwise negative unless stated above *Outpatient medications and allergy history reviewed PE: General: Alert HEENT: Normocephalic, trachea midline Eyes: Extraocular eye movement is intact, no scleral erythema Pulmonary: Clear to auscultation bilaterally, no wheezing Cardio: Regular rate and rhythm GI: Abdomen is soft, nontender, rectal examination performed at the bedside does not show any evidence of any obvious fluctuant mass, no gross bleeding : No suprapubic tenderness MSK: No evidence of trauma or malformation of the extremities, no edema Skin: No evidence of rash Neuro: Alert, no focal deficits 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 Patient has a history of adenocarcinoma of the rectum, he is no longer on any chemotherapy as he stated that they took him off of it recently because he was losing too much weight. On arrival here to the ED the patient is hemodynamically stable. He denies any abdominal pain. Denies any new rectal pain. IV was established, IV fluid bolus initiated, lab work was obtained, lab work does not show any evidence of leukocytosis, moderate hypokalemia is noted at 3.0 which was repleted IV here in the ED, there is baseline anemia with hemoglobin of 11.4. No critical electrolytes are otherwise noted. CT reading of the abdomen pelvis was ordered given the patient's history of cancer, this does show some concern for a possible contained rectal perforation and nonspecific proctocolitis. Measurement of possible contained perforation is about 4 cm x 1.4 cm. I did discuss the findings initially with on-call general surgery, Dr. Leal, recommended contacting tertiary care for colorectal surgery recommendations. Patient does have an established relationship with colorectal surgery at [facility] therefore I did reach out and spoke with on- call colorectal surgery who is actually familiar with the patient, Dr. Camacho, who did review the images that were sent via [facility] to [facility], he called me back following review of the CT imaging and stated that the area of concern on CT imaging looked more like possible tumor burden and may even be liquefactive necrosis of the tumor given the patient's history of chemo and radiation, he would not recommend emergent surgical intervention and he does not feel that the patient needs emergent transfer to [facility] for surgery today as he would not plan to perform surgery based off of the CT imaging findings following his review. He recommended the patient be discharged if he is otherwise feeling well and without leukocytosis on oral antibiotics. He does have follow-up scheduled next week in the office with [facility] urology for plans for upcoming surgery to include colostomy placement and urostomy. On my reevaluation the patient is hemodynamically stable but remains somewhat listless and weak. He states his preference for admission as he states he feels too weak to go home. He continues to deny any abdominal pain. I have low suspicion for peritonitis, his abdomen is soft and nontender on my exam. Given the patient's request and his medical history, I did contact the admitting hospitalist service and spoke with Dr. Reeves, she is in agreement to admit the patient for symptomatic care and hypokalemia given his diarrhea, stool PCR testing is noted to be negative for pathogens. Patient was in agreement for admission, he was IV fluid resuscitated here in the ED and he was started on Cipro and Flagyl for CT imaging findings, patient was admitted in stable cond ition for further care. Diagnosis: 1. Diarrhea, acute on chronic 2. Hypokalemia, moderate 3. Stable anemia, chronic 4. History of adenocarcinoma of the rectum 5. Possible contained perforation of the rectum on CT imaging Disposition: Admission Abhinav Fu DO Emergency Medicine Past Med/Surg History Medical History (Updated 07/28/22 @ 20:23 by Abhinav Fu DO) Depression Rectal cancer Rhabdomyolysis Sepsis Suicidal ideation Tachycardia Surgical History History of colonoscopy (01/02/22) Dr. Donna Huynh at [facility] History of hernia surgery (2017) History of incision and drainage (12/14/21) Perirectal Abscess - Right Dr. Silvano Cui History of mandibular surgery (as a teenager) Family History Father Lung cancer Mother Lung cancer Son Colorectal cancer Son No problems noted. Sister No problems noted. Sister No problems noted. 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 How many Children do You have: 2 Feels Safe at Home: Yes Childhood Exposure to Second-Hand Smoke: Yes Diet Comment: admits to eating 1 meal per day to limit bowel movements during the past year weight has: decreased > 10 lbs Dental Care, Regularly: No Assistive Devices: Cane, Denture - Upper, Denture - Lower and Glasses Allergies Allergies Allergy/AdvReac Type Severity Reaction Status Date / Time shellfish derived Allergy Severe ANAPHYLACTI Verified 07/28/22 19:13 C amoxicillin Allergy Intermediate HIVES Verified 07/28/22 19:13 blue dye Allergy Intermediate HIVES, Verified 07/28/22 19:13 BLISTERS doxycycline Allergy Intermediate HIVES Verified 07/28/22 19:13 Fish Containing Products Allergy Intermediate HIVES, Verified 07/28/22 19:13 FEVER lisinopril Allergy Intermediate HIVES Verified 07/28/22 19:13 oseltamivir Allergy Intermediate HIVES, Verified 07/28/22 19:13 BLISTERS tetanus toxoid, adsorbed Allergy Intermediate FEVER Verified 07/28/22 19:13 Home Meds Home Medications Medication Instructions Recorded Confirmed gabapentin 600 mg tablet 600 mg PO BID 12/14/21 07/28/22 hydroxyzine HCl 25 mg tablet 25 - 50 mg PO HS 12/14/21 07/28/22 pantoprazole 40 mg tablet,delayed 40 mg PO QAM 12/14/21 07/28/22 release multivitamin 1 tab PO DAILY 02/08/22 07/28/22 famotidine 20 mg tablet 20 mg PO DAILY 07/09/22 07/28/22 hydromorphone 8 mg tablet 8 mg PO Q3H PRN Pain 07/09/22 07/28/22 lidocaine-prilocaine 2.5 %-2.5 % 1 applic topical DIRECTED PRN 07/09/22 07/28/22 topical cream PORT ACCESS sertraline 100 mg tablet 100 mg PO DAILY 07/09/22 07/28/22 Diltiazem 1 applic topical TID 07/21/22 07/28/22 diphenoxylate-atropine 2.5 1 tab PO Q6H PRN Diarrhea 07/21/22 07/28/22 mg-0.025 mg tablet loperamide 2 mg capsule 2 mg PO Q6H PRN Diarrhea 07/21/22 07/28/22 (Anti-Diarrheal (loperamide)) morphine 60 mg tablet,extended 60 mg PO Q12H 07/21/22 07/28/22 release (MS Contin) tamsulosin 0.4 mg capsule 0.4 mg PO BID 07/21/22 07/28/22 Results & Data (ED) Vital Signs Vital Signs - 24 hr 07/28/22 14:32 07/28/22 16:00 07/28/22 16:00 Temperature 36.7 C Temperature Source Temporal Artery Scan Pulse Rate 101 H 99 H 101 H Pulse Rate [Finger] Pulse Rate from SpO2 Sensor 93 H Pulse Rhythm Regular Regular Pulse Strength Normal Respiratory Rate 20 18 17 Respiratory Effort / Characteristics Non-Labored Spontaneous Respiratory Depth Normal Respiratory Pattern Regular Blood Pressure 133/88 165/119 H Blood Pressure [Right Arm] Blood Pressure Mean 103 134 Blood Pressure Mean [Right Arm] Blood Pressure Position Sitting Pulse Oximetry 98 100 100 Oxygen Delivery Method Room Air Room Air Sepsis Recent Fever Within 48 Hours No Sepsis New/Unexplained Change in Mental Status No Sepsis Action Taken by Nursing No Action Required 07/28/22 16:30 07/28/22 17:00 07/28/22 17:30 Temperature Temperature Source Pulse Rate 93 H 96 H 94 H Pulse Rate [Finger] Pulse Rate from SpO2 Sensor 95 H 96 H 92 H Pulse Rhythm Pulse Strength Respiratory Rate 23 23 22 Respiratory Effort / Characteristics Respiratory Depth Respiratory Pattern Blood Pressure 186/113 H 150/116 H 182/112 H Blood Pressure [Right Arm] Blood Pressure Mean 137 127 135 Blood Pressure Mean [Right Arm] Blood Pressure Position Pulse Oximetry 97 98 95 Oxygen Delivery Method Sepsis Recent Fever Within 48 Hours Sepsis New/Unexplained Change in Mental Status Sepsis Action Taken by Nursing 07/28/22 18:00 07/28/22 18:30 07/28/22 19:05 Temperature Temperature Source Pulse Rate 100 H 94 H Pulse Rate [Finger] 98 H Pulse Rate from SpO2 Sensor 82 Pulse Rhythm Pulse Strength Respiratory Rate 13 22 18 Respiratory Effort / Characteristics Respiratory Depth Respiratory Pattern Blood Pressure 170/118 H 185/110 H Blood Pressure [Right Arm] 175/109 H Blood Pressure Mean 135 135 Blood Pressure Mean [Right Arm] 131 Blood Pressure Position Pulse Oximetry 97 98 Oxygen Delivery Method Sepsis Recent Fever Within 48 Hours Sepsis New/Unexplained Change in Mental Status Sepsis Action Taken by Nursing Laboratory Data Result diagrams: 07/28/22 15:25 07/28/22 15:25 Lab Results 07/28/22 07/28/22 07/28/22 Range/Units 15:25 15:25 15:25 WBC 5.80 (4.8-10.8) K/ul RBC 3.89 L (4.63-6.08) M/uL Hgb 11.4 L (14.0-18.0) g/dl Hct 33.3 L (40.1-51.0) % MCV 85.6 (80.0-100.0) fL MCH 29.3 (25.0-34.0) pg MCHC 34.2 (32.0-36.0) g/dL RDW Std Deviation 53.7 H (36.4-46.3) fL RDW Coeff of Raul 17.4 H (11.5-14.5) % Plt Count 168 (130-400) K/uL MPV 9.2 L (9.4-12.4) fL Immature Gran % (Auto) 3.4 % Neut % (Auto) 84.7 % Lymph % (Auto) 4.1 % [place] % (Auto) 7.6 % Eos % (Auto) 0.0 % Baso % (Auto) 0.2 % Neut # (Auto) 4.91 (1.4-6.5) K/uL Lymph # (Auto) 0.24 L (1.2-3.4) K/uL [place] # (Auto) 0.44 (0.24-0.82) K/uL Eos # (Auto) 0.00 (0-0.50) K/uL Baso # (Auto) 0.01 (0-0.2) K/uL Immature Gran # (Auto) 0.20 H (0.00-0.02) K/uL Sodium 137 (136-145) mmol/L Potassium 3.0 L (3.5-5.1) mmol/L Chloride 102 (98-107) mmol/L Carbon Dioxide 25 (21-32) mmol/L Anion Gap 10 (3-11) BUN 20 (6-23) mg/dl Creatinine 0.67 (0.6-1.4) mg/dl Est Cr Clr Drug Dosing Not Reportable Est GFR ( Amer) 117.7 ml/min Est GFR (Non-Af Amer) 101.5 ml/min BUN/Creatinine Ratio 29.9 H (10-20) Glucose 162 H (70-99(Fasting)) mg/dl Lactate 1.5 (0.4-2.0) mmol/L Calcium 8.1 L (8.5-10.1) mg/dl Magnesium 1.7 (1.7-2.4) mg/dl Total Bilirubin 0.5 (0.2-1.0) mg/dl Direct Bilirubin 0.1 (0-0.2) mg/dl AST 16 (13-39) U/L ALT 10 (7-52) U/L Alkaline Phosphatase 61 (34-104) U/L Troponin I High Sens 17.0 (0-20) pg/ml Total Protein 5.9 L (6.0-8.3) gm/dl Albumin 2.8 L (3.4-5.0) gm/dl Procalcitonin (0-0.5) ng/ml Urine Color Urine Appearance (Clear) Urine pH (4.5-7.5) Ur Specific [place] (1.000-1.030) Urine Protein (Negative) Urine Glucose (UA) (Negative) Urine Ketones (Negative) Urine Blood (Negative) Urine Nitrite (Negative) Urine Bilirubin (Negative) Urine Urobilinogen (Negative) Ur Leukocyte Esterase (Negative) Urine WBC (Auto) (0-5) /hpf Urine RBC (Auto) (0-4) /hpf U Hyaline Cast (Auto) (0-5) /lpf U Epithel Cells (Auto) (0-5) /lpf Urine Bacteria (Auto) (Negative) Urine Crystals Calcium Oxalate Crystal (None Prsent) Urine Mucus (None Prsent) Stl C. cayetanensis PCR (NotDetected) Stool Rotavirus A PCR (NotDetected) Stl Adenov F 40/41 PCR (NotDetected) Stool Astrovirus (PCR) (NotDetected) Stool Campylobacter PCR (NotDetected) Stl C. diff Tox B Gene (Neg) Stool Cryptosporidium PCR (NotDetected) Stl E.coli Shiga Tox PCR (NotDetected) Stl Enterotoxigenic E PCR (NotDetected) Stool EPEC (PCR) (NotDetected) Stool EAEC (PCR) (NotDetected) Stl E. histolytica PCR (NotDetected) Stool Giardia Lamblia PCR (NotDetected) Stool Salmonella PCR (NotDetected) Stool Sapovirus (PCR) (NotDetected) Stl P. shigelloides PCR (NotDetected) Stl Shigella/EIEC PCR (NotDetected) St Y.enterocolitica PCR (NotDetected) Stool Vibrio (PCR) (NotDetected) Stl Vibrio cholerae PCR (NotDetected) Stl Norovirus GI/GII PCR (NotDetected) SARS-CoV-2 (PCR) (Negative) Influenza Type A (PCR) (Neg) Influenza Type B (PCR) (Neg) RSV (RT-PCR) (Neg) 07/28/22 07/28/22 07/28/22 Range/Units 15:25 16:54 17:17 WBC (4.8-10.8) K/ul RBC (4.63-6.08) M/uL Hgb (14.0-18.0) g/dl Hct (40.1-51.0) % MCV (80.0-100.0) fL MCH (25.0-34.0) pg MCHC (32.0-36.0) g/dL RDW Std Deviation (36.4-46.3) fL RDW Coeff of Raul (11.5-14.5) % Plt Count (130-400) K/uL MPV (9.4-12.4) fL Immature Gran % (Auto) % Neut % (Auto) % Lymph % (Auto) % [place] % (Auto) % Eos % (Auto) % Baso % (Auto) % Neut # (Auto) (1.4-6.5) K/uL Lymph # (Auto) (1.2-3.4) K/uL [place] # (Auto) (0.24-0.82) K/uL Eos # (Auto) (0-0.50) K/uL Baso # (Auto) (0-0.2) K/uL Immature Gran # (Auto) (0.00-0.02) K/uL Sodium (136-145) mmol/L Potassium (3.5-5.1) mmol/L Chloride (98-107) mmol/L Carbon Dioxide (21-32) mmol/L Anion Gap (3-11) BUN (6-23) mg/dl Creatinine (0.6-1.4) mg/dl Est Cr Clr Drug Dosing Est GFR ( Amer) ml/min Est GFR (Non-Af Amer) ml/min BUN/Creatinine Ratio (10-20) Glucose (70-99(Fasting)) mg/dl Lactate (0.4-2.0) mmol/L Calcium (8.5-10.1) mg/dl Magnesium (1.7-2.4) mg/dl Total Bilirubin (0.2-1.0) mg/dl Direct Bilirubin (0-0.2) mg/dl AST (13-39) U/L ALT (7-52) U/L Alkaline Phosphatase (34-104) U/L Troponin I High Sens (0-20) pg/ml Total Protein (6.0-8.3) gm/dl Albumin (3.4-5.0) gm/dl Procalcitonin 0.08 (0-0.5) ng/ml Urine Color Urine Appearance (Clear) Urine pH (4.5-7.5) Ur Specific [place] (1.000-1.030) Urine Protein (Negative) Urine Glucose (UA) (Negative) Urine Ketones (Negative) Urine Blood (Negative) Urine Nitrite (Negative) Urine Bilirubin (Negative) Urine Urobilinogen (Negative) Ur Leukocyte Esterase (Negative) Urine WBC (Auto) (0-5) /hpf Urine RBC (Auto) (0-4) /hpf U Hyaline Cast (Auto) (0-5) /lpf U Epithel Cells (Auto) (0-5) /lpf Urine Bacteria (Auto) (Negative) Urine Crystals Calcium Oxalate Crystal (None Prsent) Urine Mucus (None Prsent) Stl C. cayetanensis PCR Not Detected (NotDetected) Stool Rotavirus A PCR Not Detected (NotDetected) Stl Adenov F 40/41 PCR Not Detected (NotDetected) Stool Astrovirus (PCR) Not Detected (NotDetected) Stool Campylobacter PCR Not Detected (NotDetected) Stl C. diff Tox B Gene Negative Cdiff Gene (Neg) Stool Cryptosporidium PCR Not Detected (NotDetected) Stl E.coli Shiga Tox PCR Not Detected (NotDetected) Stl Enterotoxigenic E PCR Not Detected (NotDetected) Stool EPEC (PCR) Not Detected (NotDetected) Stool EAEC (PCR) Not Detected (NotDetected) Stl E. histolytica PCR Not Detected (NotDetected) Stool Giardia Lamblia PCR Not Detected (NotDetected) Stool Salmonella PCR Not Detected (NotDetected) Stool Sapovirus (PCR) Not Detected (NotDetected) Stl P. shigelloides PCR Not Detected (NotDetected) Stl Shigella/EIEC PCR Not Detected (NotDetected) St Y.enterocolitica PCR Not Detected (NotDetected) Stool Vibrio (PCR) Not Detected (NotDetected) Stl Vibrio cholerae PCR Not Detected (NotDetected) Stl Norovirus GI/GII PCR Not Detected (NotDetected) SARS-CoV-2 (PCR) NEGATIVE (Negative) Influenza Type A (PCR) Negative (Neg) Influenza Type B (PCR) Negative (Neg) RSV (RT-PCR) Negative (Neg) 07/28/22 Range/Units 17:17 WBC (4.8-10.8) K/ul RBC (4.63-6.08) M/uL Hgb (14.0-18.0) g/dl Hct (40.1-51.0) % MCV (80.0-100.0) fL MCH (25.0-34.0) pg MCHC (32.0-36.0) g/dL RDW Std Deviation (36.4-46.3) fL RDW Coeff of Raul (11.5-14.5) % Plt Count (130-400) K/uL MPV (9.4-12.4) fL Immature Gran % (Auto) % Neut % (Auto) % Lymph % (Auto) % [place] % (Auto) % Eos % (Auto) % Baso % (Auto) % Neut # (Auto) (1.4-6.5) K/uL Lymph # (Auto) (1.2-3.4) K/uL [place] # (Auto) (0.24-0.82) K/uL Eos # (Auto) (0-0.50) K/uL Baso # (Auto) (0-0.2) K/uL Immature Gran # (Auto) (0.00-0.02) K/uL Sodium (136-145) mmol/L Potassium (3.5-5.1) mmol/L Chloride (98-107) mmol/L Carbon Dioxide (21-32) mmol/L Anion Gap (3-11) BUN (6-23) mg/dl Creatinine (0.6-1.4) mg/dl Est Cr Clr Drug Dosing Est GFR ( Amer) ml/min Est GFR (Non-Af Amer) ml/min BUN/Creatinine Ratio (10-20) Glucose (70-99(Fasting)) mg/dl Lactate (0.4-2.0) mmol/L Calcium (8.5-10.1) mg/dl Magnesium (1.7-2.4) mg/dl Total Bilirubin (0.2-1.0) mg/dl Direct Bilirubin (0-0.2) mg/dl AST (13-39) U/L ALT (7-52) U/L Alkaline Phosphatase (34-104) U/L Troponin I High Sens (0-20) pg/ml Total Protein (6.0-8.3) gm/dl Albumin (3.4-5.0) gm/dl Procalcitonin (0-0.5) ng/ml Urine Color Yellow Urine Appearance Turbid A (Clear) Urine pH 7.0 (4.5-7.5) Ur Specific [place] 1.040 H (1.000-1.030) Urine Protein 1+ H (Negative) Urine Glucose (UA) Negative (Negative) Urine Ketones 2+ H (Negative) Urine Blood 2+ H (Negative) Urine Nitrite Positive A (Negative) Urine Bilirubin Negative (Negative) Urine Urobilinogen Negative (Negative) Ur Leukocyte Esterase 3+ H (Negative) Urine WBC (Auto) >30 H (0-5) /hpf Urine RBC (Auto) >30 H (0-4) /hpf U Hyaline Cast (Auto) 1-5 (0-5) /lpf U Epithel Cells (Auto) 20-30 H (0-5) /lpf Urine Bacteria (Auto) 4+ H (Negative) Urine Crystals Not Reportable Calcium Oxalate Crystal Present A (None Prsent) Urine Mucus Present A (None Prsent) Stl C. cayetanensis PCR (NotDetected) Stool Rotavirus A PCR (NotDetected) Stl Adenov F 40/41 PCR (NotDetected) Stool Astrovirus (PCR) (NotDetected) Stool Campylobacter PCR (NotDetected) Stl C. diff Tox B Gene (Neg) Stool Cryptosporidium PCR (NotDetected) Stl E.coli Shiga Tox PCR (NotDetected) Stl Enterotoxigenic E PCR (NotDetected) Stool EPEC (PCR) (NotDetected) Stool EAEC (PCR) (NotDetected) Stl E. histolytica PCR (NotDetected) Stool Giardia Lamblia PCR (NotDetected) Stool Salmonella PCR (NotDetected) Stool Sapovirus (PCR) (NotDetected) Stl P. shigelloides PCR (NotDetected) Stl Shigella/EIEC PCR (NotDetected) St Y.enterocolitica PCR (NotDetected) Stool Vibrio (PCR) (NotDetected) Stl Vibrio cholerae PCR (NotDetected) Stl Norovirus GI/GII PCR (NotDetected) SARS-CoV-2 (PCR) (Negative) Influenza Type A (PCR) (Neg) Influenza Type B (PCR) (Neg) RSV (RT-PCR) (Neg) Administered Medications Ciprofloxacin (Cipro / D5w) 400 mg in 200 mls @ 100 mls/hr IV NOW STA; Protocol Stop: 07/28/22 20:55 Last Admin: 07/28/22 19:08 Dose: 100 mls/hr Documented By: NANCY Discontinued Medications Sodium Chloride (Nss 1000ml) 1,000 mls @ 999 mls/hr IV .Q1H1M ONE Stop: 07/28/22 15:49 Last Infusion: 07/28/22 18:18 Dose: 0 mls/hr Documented By: Admin: 07/28/22 15:50 Dose: 999 mls/hr Documented By: LAYLA Sodium Chloride (Nss 1000ml) 1,000 mls @ 999 mls/hr IV .Q1H1M ONE Stop: 07/28/22 17:19 Last Infusion: 07/28/22 18:18 Dose: 0 mls/hr Documented By: Admin: 07/28/22 16:53 Dose: 999 mls/hr Documented By: LAYLA Potassium Chloride (K Rainer / Wtr) 10 meq in 100 mls @ 100 mls/hr IV Q1H KAILEE; Protocol Stop: 07/28/22 19:59 Last Admin: 07/28/22 19:24 Dose: 100 mls/hr Documented By: Infusion: 07/28/22 19:24 Dose: 0 mls/hr Documented By: Infusion: 07/28/22 19:24 Dose: 0 mls/hr Documented By: Admin: 07/28/22 18:18 Dose: 100 mls/hr Documented By: LAYLA Ioversol (Optiray 350 100ml) 83 ml IV ONCE ONE Stop: 07/28/22 16:45 Last Admin: 07/28/22 16:44 Dose: 83 ml Documented By: LINDA Ondansetron HCl (Ondansetron Inj 2 Mg/Ml 2 Ml Vial) 4 mg IV NOW STA Stop: 07/28/22 14:51 Last Admin: 07/28/22 15:50 Dose: 4 mg Documented By: LAYLA Imaging Data Radiologist's Impression: Chest X-Ray 07/28/22 14:48 SINGLE VIEW CHEST CLINICAL HISTORY: Sepsis. FINDINGS: 2AP, portable, upright chest radiographs are compared to study dated 12/14/2021. A right internal jugular central venous infusion port is new from previous. The cardiomediastinal silhouette is unremarkable. The lungs and pleural spaces are clear. No pneumothorax is seen. The skeletal structures are osteopenic. The bony thorax is grossly intact. IMPRESSION: No acute cardiopulmonary abnormality. ACT 112: Negative or not required by law. Electronically signed by: Angelito Nunez M.D. 07/28/2022 3:45 PM Abdomen/Pelvis CT 07/28/22 16:19 CT OF THE ABDOMEN AND PELVIS WITH CONTRAST CLINICAL HISTORY: Nausea, vomiting and diarrhea. History of rectal cancer. COMPARISON STUDY: CT of the abdomen and pelvis July 09, 2022. TECHNIQUE: Following IV administration of 83 mL of Optiray, axial images of the abdomen and pelvis were obtained from the lung bases to the proximal femurs. Images were reviewed in the axial, sagittal, and coronal planes. IV contrast was administered without complication. Automated exposure control was utilized for the study. A dose lowering technique was utilized adhering to the principles of ALARA. CT DOSE: 349.57 mGy.cm FINDINGS: No pneumatosis, free air or portal venous gas is present. There is diffuse mesenteric and retroperitoneal stranding, new since prior exam. Liver, spleen, adrenal glands, kidneys and pancreas are unremarkable. There is no biliary or pancreatic ductal dilatation. There is no hydronephrosis. A moderate amount of stool within the colon is noted. Marked wall thickening of the proximal to mid rectum is new since prior exam. There is also sigmoid colon wall thickening with adjacent stranding. Extensive sigmoid diverticulosis is noted. There may also be right colon wall thickening. No lymphadenopathy is present. There is no evidence for a bowel obstruction. Gas is again noted within the bladder. Bladder wall thickening with adjacent stranding is noted. There is trace fluid within pelvis. Of note, there has been interval development of a rim-enhancing right perirectal fluid and gas containing collection that measures 4 x 1.4 cm. This extends into the right perineum. This collection is new since CT of July 09, 2022. Similar findings were shown on initial CT of December 14, 2021. This is suggestive of a contained rectal perforation. Major vasculature is patent. No acute fracture or suspicious lesion within the visualized skeletal structures is present. Oral contrast from prior CT is noted within the colon. IMPRESSION: 1. Interval development of a 4 x 1.4 cm rim-enhancing fluid and gas containing right perirectal fluid collection extending into the right perineum. This favors a contained rectal perforation. Colorectal surgical consultation is recommended. 2. Marked wall thickening of the proximal to mid rectum. In addition, sigmoid colon and possible right colon wall thickening. The findings suggest a nonspecific proctocolitis. 3. Diffuse mesenteric and retroperitoneal stranding. This is nonspecific and peritonitis is within the differential. 4. No bowel obstruction. Moderate amount of stool within the colon. 5. Persistent gas within the bladder with bladder wall thickening and adjacent stranding. The etiology for this gas is unclear on this exam. ACT 112: Negative or not required by law. Electronically signed by: Manuel Nazario M.D. 07/28/2022 5:23 PM Discharge Plan Visit Data Chief Complaint: Dehydration Stated Complaint: DEHYDRATION ED Provider: Abhinav Fu Discharge Problem: Acute hypokalemia Patient Disposition: Admitted As Inpatient Forms Stand Alone Forms: [facility] Prescriptions Prescriptions: No Action multivitamin Tablet 1 tab PO DAILY loperamide [Anti-Diarrheal (loperamide)] 2 mg capsule 2 mg PO Q6H PRN (Reason: Diarrhea) diphenoxylate-atropine 2.5-0.025 mg tablet 1 tab PO Q6H PRN (Reason: Diarrhea) tamsulosin 0.4 mg capsule 0.4 mg PO BID Diltiazem 20 mg/mL gel 1 applic topical TID Rx Instructions: administer per rectum TID morphine [MS Contin] 60 mg tablet extended release 60 mg PO Q12H Rx Instructions: 1 tablet in the morning and 1 tablet before bedtime hydromorphone 8 mg tablet 8 mg PO Q3H PRN (Reason: Pain) sertraline 100 mg tablet 100 mg PO DAILY lidocaine-prilocaine 2.5-2.5 % Cream 1 applic topical DIRECTED PRN (Reason: PORT ACCESS) famotidine 20 mg Tablet 20 mg PO DAILY gabapentin 600 mg tablet 600 mg PO BID Rx Instructions: is ordered qid pantoprazole 40 mg tablet,delayed release (DR/EC) 40 mg PO QAM hydroxyzine HCl 25 mg tablet 25 - 50 mg PO HS Referrals Referrals: Heather Peterson PA-C [Primary Care Provider] -
--- NOTE | 2022-07-28 15:47 | XRay Report ---
SINGLE VIEW CHEST CLINICAL HISTORY: Sepsis. FINDINGS: 2AP, portable, upright chest radiographs are compared to study dated 12/14/2021. A right inte rnal jugular central venous infusion port is new from previous. The cardiomediastinal silhouette is u nremarkable. The lungs and pleural spaces are clear. No pneumothorax is seen. The skeletal structures are osteopenic. The bony thorax is grossly intact. IMPRESSION: No acute cardiopulmonary abnormality. ACT 112: Negative or not required by law. Electronically signed by: Angelito Nunez M.D. 07/28/2022 3:45 PM
[2022-07-28 15:50] LABS: Basophils # (auto) 0.01 K/uL (0-0.2); Basophils % (auto) 0.2 %; Hematocrit (blood only) 33.3 % (40.1-51.0); Hemoglobin 11.4 g/dl (14.0-18.0); Immature Granulocytes % (auto) 3.4 %; Lymphocytes # (auto) 0.24 K/uL (1.2-3.4); Lymphocytes % (auto) 4.1 %; Mean Corpuscular Hemoglobin 29.3 pg (25.0-34.0); Mean Corpuscular Hgb Conc 34.2 g/dL (32.0-36.0); Mean Corpuscular Volume 85.6 fL (80.0-100.0); Mean Platelet Volume 9.2 fL (9.4-12.4); Monocytes # (auto) 0.44 K/uL (0.24-0.82); Monocytes % (auto) 7.6 %; Neutrophils # (auto) 4.91 K/uL (1.4-6.5); Neutrophils % (auto) 84.7 %; Platelet Count 168 K/uL (130-400); RDW Coefficient of Variation 17.4 % (11.5-14.5); RDW Standard Deviation 53.7 fL (36.4-46.3); Red Blood Count 3.89 M/uL (4.63-6.08)
[2022-07-28 16:05] LABS: Alanine Aminotransferase 10 U/L (7-52); Albumin Level 2.8 gm/dl (3.4-5.0); Alkaline Phosphatase 61 U/L (34-104); Anion Gap 10 (3-11); Aspartate Aminotransferase 16 U/L (13-39); BUN Creatinine Ratio 29.9 (10-20); Bilirubin Direct 0.1 mg/dl (0-0.2); Bilirubin,Total 0.5 mg/dl (0.2-1.0); Blood Urea Nitrogen 20 mg/dl (6-23); Calcium 8.1 mg/dl (8.5-10.1); Carbon Dioxide 25 mmol/L (21-32); Chloride 102 mmol/L (98-107); Est GFR (African American) 117.7 ml/min; Est GFR (Non-African American) 101.5 ml/min; Glucose 162 mg/dl (70-99(Fasting)); Magnesium 1.7 mg/dl (1.7-2.4); Sodium 137 mmol/L (136-145); Total Protein 5.9 gm/dl (6.0-8.3)
--- NOTE | 2022-07-28 16:05 | Electrocardiogram Report ---
Test Reason : Blood Pressure : / mmHG Vent. Rate : 103 BPM Atrial Rate : 103 BPM P-R Int : 116 ms QRS Dur : 084 ms QT Int : 358 ms P-R-T Axes : 062 037 029 degrees QTc Int : 468 ms Poor data quality, interpretation may be adversely affected Sinus tachycardia with Premature atrial complexes Otherwise normal ECG When compared with ECG of 14-DEC-2021 14:52, No significant change was found Confirmed by Fly Helm ([id number]) on 07/28/2022 4:04:59 PM Referred By: REFERRED SELF Confirmed By:Fly Helm
[2022-07-28] MEDS ORDERED: OPTIRAY 350 100ml IV ONE (16:44)
--- NOTE | 2022-07-28 17:25 | CT Scan Report ---
CT OF THE ABDOMEN AND PELVIS WITH CONTRAST CLINICAL HISTORY: Nausea, vomiting and diarrhea. History of rectal cancer. COMPARISON STUDY: CT of the abdomen and pelvis July 09, 2022. TECHNIQUE: Following IV administration of 83 mL of Optiray, axial images of the abdomen and pelvis we re obtained from the lung bases to the proximal femurs. Images were reviewed in the axial, sagittal, and coronal planes. IV contrast was administered without complication. Automated exposure control wa s utilized for the study. A dose lowering technique was utilized adhering to the principles of ALARA . CT DOSE: 349.57 mGy.cm FINDINGS: No pneumatosis, free air or portal venous gas is present. There is diffuse mesenteric and r etroperitoneal stranding, new since prior exam. Liver, spleen, adrenal glands, kidneys and pancreas a re unremarkable. There is no biliary or pancreatic ductal dilatation. There is no hydronephrosis. A m oderate amount of stool within the colon is noted. Marked wall thickening of the proximal to mid rect um is new since prior exam. There is also sigmoid colon wall thickening with adjacent stranding. Exte nsive sigmoid diverticulosis is noted. There may also be right colon wall thickening. No lymphadenopa thy is present. There is no evidence for a bowel obstruction. Gas is again noted within the bladder. Bladder wall thickening with adjacent stranding is noted. There is trace fluid within pelvis. Of note , there has been interval development of a rim-enhancing right perirectal fluid and gas containing co llection that measures 4 x 1.4 cm. This extends into the right perineum. This collection is new since CT of July 09, 2022. Similar findings were shown on initial CT of December 14, 2021. This is suggesti ve of a contained rectal perforation. Major vasculature is patent. No acute fracture or suspicious le emanuel within the visualized skeletal structures is present. Oral contrast from prior CT is noted withi n the colon. IMPRESSION: 1. Interval development of a 4 x 1.4 cm rim-enhancing fluid and gas containing right perirectal fluid collection extending into the right perineum. This favors a contained rectal perforation. Colorectal surgical consultation is recommended. 2. Marked wall thickening of the proximal to mid rectum. In addition, sigmoid colon and possible righ t colon wall thickening. The findings suggest a nonspecific proctocolitis. 3. Diffuse mesenteric and retroperitoneal stranding. This is nonspecific and peritonitis is within th e differential. 4. No bowel obstruction. Moderate amount of stool within the colon. 5. Persistent gas within the bladder with bladder wall thickening and adjacent stranding. The etiolog y for this gas is unclear on this exam. ACT 112: Negative or not required by law. Electronically signed by: Manuel Nazario M.D. 07/28/2022 5:23 PM
[2022-07-28 17:31] LABS: Appearance Urine Turbid (Clear); Bacteria Urine Automated 4+ (Negative); Bilirubin Urine Negative (Negative); Blood Urine 2+ (Negative); Color Urine Yellow; Epithelial Cell Urine Auto 20-30 /lpf (0-5); Glucose Urine UA Negative (Negative); Ketones Urine 2+ (Negative); Leukocyte Esterase Urine 3+ (Negative); Nitrite Urine Positive (Negative); Protein Urine 1+ (Negative); RBC Urine Automated >30 /hpf (0-4); Urobilinogen Urine Negative (Negative); WBC Urine Automated >30 /hpf (0-5)
[2022-07-28 17:39] LABS: Influenza A virus by PCR Negative (Neg); Influenza B virus by PCR Negative (Neg); RSV by PCR Negative (Neg); SARS CoV2 RNA(COVID-19)Cepheid NEGATIVE (Negative)
[2022-07-28 18:09] LABS: Calcium Oxalate Crystals Urine Present (None Prsent); Mucus Urine Present (None Prsent)
[2022-07-28] MEDS: POTASSIUM CHLORIDE / WTR 10 MEQ/100 ML PLCT IV SCH ×2 (18:18→19:24)
[2022-07-28 18:46] LABS: Adenovirus F 40/41 PCR Not Detected (NotDetected); Astrovirus PCR Not Detected (NotDetected); Campylobacter PCR Not Detected (NotDetected); Cryptosporidium PCR Not Detected (NotDetected); Cyclospora cayetanensis PCR Not Detected (NotDetected); Entamoeba histolytica PCR Not Detected (NotDetected); Enteroaggregative E.coli(EAEC) Not Detected (NotDetected); Enteropathogenic E.coli (EPEC) Not Detected (NotDetected); Enterotoxigenic E.coli (ETEC) Not Detected (NotDetected); Giardia lamblia PCR Not Detected (NotDetected); Norovirus GI/GII PCR Not Detected (NotDetected); Plesiomonas shigelloides PCR Not Detected (NotDetected); Rotavirus A PCR Not Detected (NotDetected); Salmonella PCR Not Detected (NotDetected); Sapovirus PCR Not Detected (NotDetected); Shiga-like Toxin E.coli (STEC) Not Detected (NotDetected); Shigella/Enteroinvasive E.coli Not Detected (NotDetected); Vibrio cholerae PCR Not Detected (NotDetected); Vibrio species PCR Not Detected (NotDetected); Yersinia enterocolitica PCR Not Detected (NotDetected)
[2022-07-28] MEDS ORDERED: metroNIDAZOLE 500 MG/100 ML BAG IV STA (18:56)
[2022-07-28] MEDS ORDERED: CIPROFLOXACIN / D5W 400 MG/200 ML BAG IV STA (18:56)
--- NOTE | 2022-07-28 20:15 | History & Physical Report ---
Date of Service July 28, 2022 Assessment & Plan (1) Weakness: Plan: 62yo male with history of rectal adenocarcinoma s/p XRT, chemotherapy complicated by fistula formation presenting with ongoing diarrhea, fatigue, malaise, poor oral intake. Patient is afebrile, HD stable. No leukocytosis or elevation of lactic acid. New perirectal abscess may be causing patient's symptoms. Findings discussed with colorectal surgery - antibiotics recommended at this time. Suspect patient's generalized weakness and malaise is multifactorial - active malignancy with ongoing diarrhea as well as deconditioning, poor nutrition. -Admission to medical -IVF with LR at 125mL/hr x 2 liters -Electrolyte repletion with Magnesium x 2 gm and KCl x 60mEq -Boost Nutritional supplement TID -Tylenol PRN pain or fever -Zofran PRN nausea -Continue Diphenoxylate/Atropine for diarrhea -Continue Imodium as needed for diarrhea -Ciprofloxacin 400mg IV BID -Flagyl 500mg IV q 8 -Patient is to be seen at [facility] next week for placement of colostomy, possible repair of fistulas (2) Adenocarcinoma of rectum: Plan: Patient with rectal adenocarcinoma s/p XRT and Chemotherapy. 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 He is to be seen at [facility] next week for possible colostomy. -Cipro and Flagyl as above -Continue home pain regimen - Morphine controlled release 60mg po BID and Dilaudid 8mg po q 3 hours PRN (Prescriptions confirmed in PDMP) -Zofran as needed (3) Hypertension: Plan: Elevated blood pressure presently. Patient is not on any anti-hypertensives currently -Pain control as above -Monitor BP (4) Depression: Plan: Chronic. Patient reports depression given his current health concerns -Continue Sertraline 100mg po daily -Hydroxyzine 25mg po qHS (5) UTI (urinary tract infection): Plan: Patient with fistula formation -Continue Ciprofloxacin, Flagyl F/E/N - LR at 125mL/hr, Mg and K repletion, Regular diet as tolerated with Boost supplement Ppx - Lovenox Code - Full Dispo -Admit to medical History of Present Illness Chief Complaint: abdominal pain, diarrhea, weakness Primary Care Provider: Heather Peterson PA-C Miguel Napier is an unfortunate 62yo male with history of rectal adenocarcinoma diagnosed in December 2021 s/p XRT x 26 treatments and Xeloda oral chemotherapy. He completed 5 of 8 cycles of FOLFOX chemotherapy which was discontinued due to weight loss and generalized weakness. Patient follows with specialists at [facility] in [place] - Dr. Camacho from Colorectal surgery and Dr. Cantor from Medical Oncology. He has also been seen locally by Radiation Oncology. 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 He is to see Colorectal Surgery and Urology next week (August 01 or ) to discuss placement of a colostomy and possible urostomy. Patient reports ongoing diarrhea for the last 6 weeks as well as passage of fecal-contaminated urine and air from his penis - secondary to fistula formation. He has been feeling ill over the last several days - has been sleeping most of the day, not eating or drinking and has severe weakness and fatigue. He had some worsening fullness and discomfort in his abdomen and rectal area today. Also complaining of chills. He denies fever, chest pain, cough, SOB, nausea or vomiting. He has had significant unintentional weight loss over the last several weeks - patient thinks possibly close to 50#. Patient's sister insisted that he come to the ER this evening. In the ER patient is afebrile, hypertensive otherwise HD stable. He is chronically ill in appearance but not acutely toxic. Laboratory workup as below reveals stable normochromic, normocytic anemia. Mild hypokalemia with K=3 and UA suggestive of infection. CT imaging as below with possible interval development of rectal abscess. Images were reviewed with patient's Colorectal Surgeon from [facility], Dr. Camacho. He does not feel that any acute intervention is warranted at this time. He recommended antibiotic therapy for now. ER Course: NSS x 2L Zofran 4mg IV KCl x 20mEq Ciprofloxacin 400mg IV Flagyl 500mg IV ordered (not yet administered) Allergies Allergy/AdvReac Type Severity Reaction Status Date / Time shellfish derived Allergy Severe ANAPHYLACTI Verified 07/28/22 19:13 C amoxicillin Allergy Intermediate HIVES Verified 07/28/22 19:13 blue dye Allergy Intermediate HIVES, Verified 07/28/22 19:13 BLISTERS doxycycline Allergy Intermediate HIVES Verified 07/28/22 19:13 Fish Containing Products Allergy Intermediate HIVES, Verified 07/28/22 19:13 FEVER lisinopril Allergy Intermediate HIVES Verified 07/28/22 19:13 oseltamivir Allergy Intermediate HIVES, Verified 07/28/22 19:13 BLISTERS tetanus toxoid, adsorbed Allergy Intermediate FEVER Verified 07/28/22 19:13 Home Medications Medication Instructions Recorded Confirmed Type gabapentin 600 mg tablet 600 mg PO BID 12/14/21 07/28/22 History hydroxyzine HCl 25 mg tablet 25 - 50 mg PO HS 12/14/21 07/28/22 History pantoprazole 40 mg tablet,delayed 40 mg PO QAM 12/14/21 07/28/22 History release multivitamin 1 tab PO DAILY 02/08/22 07/28/22 History famotidine 20 mg tablet 20 mg PO DAILY 07/09/22 07/28/22 History hydromorphone 8 mg tablet 8 mg PO Q3H PRN Pain 07/09/22 07/28/22 History lidocaine-prilocaine 2.5 %-2.5 % 1 applic topical DIRECTED PRN 07/09/22 07/28/22 History topical cream PORT ACCESS sertraline 100 mg tablet 100 mg PO DAILY 07/09/22 07/28/22 History Diltiazem 1 applic topical TID 07/21/22 07/28/22 History diphenoxylate-atropine 2.5 1 tab PO Q6H PRN Diarrhea 07/21/22 07/28/22 History mg-0.025 mg tablet loperamide 2 mg capsule 2 mg PO Q6H PRN Diarrhea 07/21/22 07/28/22 History (Anti-Diarrheal (loperamide)) morphine 60 mg tablet,extended 60 mg PO Q12H 07/21/22 07/28/22 History release (MS Contin) tamsulosin 0.4 mg capsule 0.4 mg PO BID 07/21/22 07/28/22 History Past Med/Surg History Medical History Depression with history of prior SI Hypertension Rectal cancer Rhabdomyolysis Sepsis Surgical History History of colonoscopy (01/02/22) Dr. Donna Huynh at [facility] History of hernia surgery (2016) History of incision and drainage (12/14/21) Perirectal Abscess - Right Dr. Silvano Cui History of mandibular surgery (as a teenager) Family History Father Lung cancer Mother Lung cancer Son Colorectal cancer Son No problems noted. Sister No problems noted. Sister No problems noted. 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 How many Children do You have: 2 Feels Safe at Home: Yes Safety Concerns: Feels Safe At This Time Childhood Exposure to Second-Hand Smoke: Yes Diet Comment: admits to eating 1 meal per day to limit bowel movements during the past year weight has: decreased > 10 lbs Dental Care, Regularly: No Assistive Devices: Cane, Denture - Upper, Denture - Lower and Glasses Review of Systems Review of Systems: All systems reviewed & are unremarkable except as noted in HPI & below Physical Exam Physical Exam: General: patient resting chronically ill in appearance, non- toxic acutely Skin: warm, dry, intact HEENT: NC/AT, PERRL, EOMI, anicteric sclera, conjunctiva without injection, external ear normal to inspection and nontender, nares patent, slightly dry mucus membranes, dentition intact, no oropharyngeal lesions, neck supple, trachea midline, no LAD, no thyromegaly, no JVD Heart: +S1/S2, regular, no m/r/g Lungs: equal air entry bilaterally, no rales/rhonchi/wheezes Abd: +BS, soft, tender diffusely with no rebound/guarding/peritonitis Ext: warm, 2+ pulses in UE/LE bilaterally, no clubbing/cyanosis or edema Neuro: nonfocal, patient AA&O x 4, speech intact, no facial droop, moving all extremities on command with equal strength 5/5 Results & Data Results & Data ([facility]) Vital Signs (Past 12 Hours) Vital Signs Temp Pulse Pulse Resp BP BP Pulse Ox 07/28/22 19:05 98 H 18 175/109 H 98 07/28/22 18:30 94 H 22 185/110 H 97 07/28/22 18:00 100 H 13 170/118 H 07/28/22 17:30 94 H 22 182/112 H 95 07/28/22 17:00 96 H 23 150/116 H 98 07/28/22 16:30 93 H 23 186/113 H 97 07/28/22 16:00 101 H 17 165/119 H 100 07/28/22 16:00 99 H 18 100 07/28/22 14:32 36.7 C 101 H 20 133/88 98 O2 Del Method 07/28/22 19:05 07/28/22 18:30 07/28/22 18:00 07/28/22 17:30 07/28/22 17:00 07/28/22 16:30 07/28/22 16:00 Room Air 07/28/22 16:00 Room Air 07/28/22 14:32 Laboratory Results Laboratory Results WBC 5.80 K/ul (4.8-10.8) 07/28/22 15:25 RBC 3.89 M/uL (4.63-6.08) L 07/28/22 15:25 Hgb 11.4 g/dl (14.0-18.0) L 07/28/22 15:25 Hct 33.3 % (40.1-51.0) L 07/28/22 15:25 MCV 85.6 fL (80.0-100.0) 07/28/22 15:25 MCH 29.3 pg (25.0-34.0) 07/28/22 15:25 MCHC 34.2 g/dL (32.0-36.0) 07/28/22 15:25 RDW Std Deviation 53.7 fL (36.4-46.3) H 07/28/22 15:25 RDW Coeff of Raul 17.4 % (11.5-14.5) H 07/28/22 15:25 Plt Count 168 K/uL (130-400) 07/28/22 15:25 MPV 9.2 fL (9.4-12.4) L 07/28/22 15:25 Immature Gran % (Auto) 3.4 % 07/28/22 15:25 Neut % (Auto) 84.7 % 07/28/22 15:25 Lymph % (Auto) 4.1 % 07/28/22 15:25 [place] % (Auto) 7.6 % 07/28/22 15:25 Eos % (Auto) 0.0 % 07/28/22 15:25 Baso % (Auto) 0.2 % 07/28/22 15:25 Neut # (Auto) 4.91 K/uL (1.4-6.5) 07/28/22 15:25 Lymph # (Auto) 0.24 K/uL (1.2-3.4) L 07/28/22 15:25 [place] # (Auto) 0.44 K/uL (0.24-0.82) 07/28/22 15:25 Eos # (Auto) 0.00 K/uL (0-0.50) 07/28/22 15:25 Baso # (Auto) 0.01 K/uL (0-0.2) 07/28/22 15:25 Immature Gran # (Auto) 0.20 K/uL (0.00-0.02) H 07/28/22 15:25 Sodium 137 mmol/L (136-145) 07/28/22 15:25 Potassium 3.0 mmol/L (3.5-5.1) L 07/28/22 15:25 Chloride 102 mmol/L (98-107) 07/28/22 15:25 Carbon Dioxide 25 mmol/L (21-32) 07/28/22 15:25 Anion Gap 10 (3-11) 07/28/22 15:25 BUN 20 mg/dl (6-23) 07/28/22 15:25 Creatinine 0.67 mg/dl (0.6-1.4) 07/28/22 15:25 Est Cr Clr Drug Dosing Not Reportable 07/28/22 15:25 Est GFR ( Amer) 117.7 ml/min 07/28/22 15:25 Est GFR (Non-Af Amer) 101.5 ml/min 07/28/22 15:25 BUN/Creatinine Ratio 29.9 (10-20) H 07/28/22 15:25 Glucose 162 mg/dl (70-99(Fasting)) H 07/28/22 15:25 Lactate 1.5 mmol/L (0.4-2.0) 07/28/22 15:25 Calcium 8.1 mg/dl (8.5-10.1) L 07/28/22 15:25 Magnesium 1.7 mg/dl (1.7-2.4) 07/28/22 15:25 Total Bilirubin 0.5 mg/dl (0.2-1.0) 07/28/22 15:25 Direct Bilirubin 0.1 mg/dl (0-0.2) 07/28/22 15:25 AST 16 U/L (13-39) 07/28/22 15:25 ALT 10 U/L (7-52) 07/28/22 15:25 Alkaline Phosphatase 61 U/L (34-104) 07/28/22 15:25 Troponin I High Sens 17.0 pg/ml (0-20) 07/28/22 15:25 Total Protein 5.9 gm/dl (6.0-8.3) L 07/28/22 15:25 Albumin 2.8 gm/dl (3.4-5.0) L 07/28/22 15:25 Procalcitonin 0.08 ng/ml (0-0.5) 07/28/22 15:25 Urine Color Yellow 07/28/22 17:17 Urine Appearance Turbid (Clear) A 07/28/22 17:17 Urine pH 7.0 (4.5-7.5) 07/28/22 17:17 Ur Specific [place] 1.040 (1.000-1.030) H 07/28/22 17:17 Urine Protein 1+ (Negative) H 07/28/22 17:17 Urine Glucose (UA) Negative (Negative) 07/28/22 17:17 Urine Ketones 2+ (Negative) H 07/28/22 17:17 Urine Blood 2+ (Negative) H 07/28/22 17:17 Urine Nitrite Positive (Negative) A 07/28/22 17:17 Urine Bilirubin Negative (Negative) 07/28/22 17:17 Urine Urobilinogen Negative (Negative) 07/28/22 17:17 Ur Leukocyte Esterase 3+ (Negative) H 07/28/22 17:17 Urine WBC (Auto) >30 /hpf (0-5) H 07/28/22 17:17 Urine RBC (Auto) >30 /hpf (0-4) H 07/28/22 17:17 U Hyaline Cast (Auto) 1-5 /lpf (0-5) 07/28/22 17:17 U Epithel Cells (Auto) 20-30 /lpf (0-5) H 07/28/22 17:17 Urine Bacteria (Auto) 4+ (Negative) H 07/28/22 17:17 Urine Crystals Not Reportable 07/28/22 17:17 Calcium Oxalate Crystal Present (None Prsent) A 07/28/22 17:17 Urine Mucus Present (None Prsent) A 07/28/22 17:17 Stl C. cayetanensis PCR Not Detected (NotDetected) 07/28/22 17:17 Stool Rotavirus A PCR Not Detected (NotDetected) 07/28/22 17:17 Stl Adenov F 40/41 PCR Not Detected (NotDetected) 07/28/22 17:17 Stool Astrovirus (PCR) Not Detected (NotDetected) 07/28/22 17:17 Stool Campylobacter PCR Not Detected (NotDetected) 07/28/22 17:17 Stl C. diff Tox B Gene Negative Cdiff Gene (Neg) 07/28/22 17:17 Stool Cryptosporidium PCR Not Detected (NotDetected) 07/28/22 17:17 Stl E.coli Shiga Tox PCR Not Detected (NotDetected) 07/28/22 17:17 Stl Enterotoxigenic E PCR Not Detected (NotDetected) 07/28/22 17:17 Stool EPEC (PCR) Not Detected (NotDetected) 07/28/22 17:17 Stool EAEC (PCR) Not Detected (NotDetected) 07/28/22 17:17 Stl E. histolytica PCR Not Detected (NotDetected) 07/28/22 17:17 Stool Giardia Lamblia PCR Not Detected (NotDetected) 07/28/22 17:17 Stool Salmonella PCR Not Detected (NotDetected) 07/28/22 17:17 Stool Sapovirus (PCR) Not Detected (NotDetected) 07/28/22 17:17 Stl P. shigelloides PCR Not Detected (NotDetected) 07/28/22 17:17 Stl Shigella/EIEC PCR Not Detected (NotDetected) 07/28/22 17:17 St Y.enterocolitica PCR Not Detected (NotDetected) 07/28/22 17:17 Stool Vibrio (PCR) Not Detected (NotDetected) 07/28/22 17:17 Stl Vibrio cholerae PCR Not Detected (NotDetected) 07/28/22 17:17 Stl Norovirus GI/GII PCR Not Detected (NotDetected) 07/28/22 17:17 SARS-CoV-2 (PCR) NEGATIVE (Negative) 07/28/22 16:54 Influenza Type A (PCR) Negative (Neg) 07/28/22 16:54 Influenza Type B (PCR) Negative (Neg) 07/28/22 16:54 RSV (RT-PCR) Negative (Neg) 07/28/22 16:54 Impressions Chest X-Ray 07/28/22 14:48 SINGLE VIEW CHEST CLINICAL HISTORY: Sepsis. FINDINGS: 2AP, portable, upright chest radiographs are compared to study dated 12/14/2021. A right internal jugular central venous infusion port is new from previous. The cardiomediastinal silhouette is unremarkable. The lungs and pleural spaces are clear. No pneumothorax is seen. The skeletal structures are osteopenic. The bony thorax is grossly intact. IMPRESSION: No acute cardiopulmonary abnormality. ACT 112: Negative or not required by law. Electronically signed by: Angelito Nunez M.D. 07/28/2022 3:45 PM Abdomen/Pelvis CT 07/28/22 16:19 CT OF THE ABDOMEN AND PELVIS WITH CONTRAST CLINICAL HISTORY: Nausea, vomiting and diarrhea. History of rectal cancer. COMPARISON STUDY: CT of the abdomen and pelvis July 09, 2022. TECHNIQUE: Following IV administration of 83 mL of Optiray, axial images of the abdomen and pelvis were obtained from the lung bases to the proximal femurs. Images were reviewed in the axial, sagittal, and coronal planes. IV contrast was administered without complication. Automated exposure control was utilized for the study. A dose lowering technique was utilized adhering to the principles of ALARA. CT DOSE: 349.57 mGy.cm FINDINGS: No pneumatosis, free air or portal venous gas is present. There is diffuse mesenteric and retroperitoneal stranding, new since prior exam. Liver, spleen, adrenal glands, kidneys and pancreas are unremarkable. There is no biliary or pancreatic ductal dilatation. There is no hydronephrosis. A moderate amount of stool within the colon is noted. Marked wall thickening of the proximal to mid rectum is new since prior exam. There is also sigmoid colon wall thickening with adjacent stranding. Extensive sigmoid diverticulosis is noted. There may also be right colon wall thickening. No lymphadenopathy is present. There is no evidence for a bowel obstruction. Gas is again noted within the bladder. Bladder wall thickening with adjacent stranding is noted. There is trace fluid within pelvis. Of note, there has been interval development of a rim-enhancing right perirectal fluid and gas containing collection that measures 4 x 1.4 cm. This extends into the right perineum. This collection is new since CT of July 09, 2022. Similar findings were shown on initial CT of December 14, 2021. This is suggestive of a contained rectal perforation. Major vasculature is patent. No acute fracture or suspicious lesion within the visualized skeletal structures is present. Oral contrast from prior CT is noted within the colon. IMPRESSION: 1. Interval development of a 4 x 1.4 cm rim-enhancing fluid and gas containing right perirectal fluid collection extending into the right perineum. This favors a contained rectal perforation. Colorectal surgical consultation is recommended. 2. Marked wall thickening of the proximal to mid rectum. In addition, sigmoid colon and possible right colon wall thickening. The findings suggest a nonspecific proctocolitis. 3. Diffuse mesenteric and retroperitoneal stranding. This is nonspecific and per itonitis is within the differential. 4. No bowel obstruction. Moderate amount of stool within the colon. 5. Persistent gas within the bladder with bladder wall thickening and adjacent stranding. The etiology for this gas is unclear on this exam. ACT 112: Negative or not required by law. Electronically signed by: Manuel Nazario M.D. 07/28/2022 5:23 PM Code Status & VTE Plan VTE Prophylaxis Plan VTE Prophylaxis will be ordered: Yes PG Care Time/CCT Total # of Minutes Spent Total Time Spent with Patient: Total time spent is greater than 50% in coordination of care (as documented) at patient's floor/unit and/or counseling patient: Coding Level of Care Code 75633 Initial Inpt Care Lvl 3 Diagnoses Weakness R53.1 Adenocarcinoma of rectum C20 Hypertension I10 Depression F32.9 UTI (urinary tract infection) N39.0
[2022-07-28] MEDS ORDERED: DIPHENOXYLATE/ATROPINE 2.5/0.025MG TAB PO PRN (21:37)
[2022-07-28] MEDS ORDERED: POTASSIUM CHLORIDE CRTAB 20 MEQ TABCR PO STA (21:37)
[2022-07-28] MEDS ORDERED: ACETAMINOPHEN 325 MG TAB PO PRN (21:37)
[2022-07-28] MEDS ORDERED: ONDANSETRON INJ 2 MG/ML 2 ML VIAL IV PRN (21:37)
[2022-07-28] MEDS ORDERED: LOPERAMIDE HCL 2 MG CAP PO PRN (21:37)
[2022-07-28] MEDS: MoRPHine SULFATE CR 60 MG TABCR PO SCH (22:29)
[2022-07-28] MEDS: TAMSULOSIN HCL 0.4 MG CAP PO SCH (22:30)
[2022-07-28] MEDS: ENOXAPARIN INJ 40 MG/0.4 ML SYR SQ SCH (22:30)
[2022-07-28] MEDS: GABAPENTIN 600 MG TAB PO SCH (22:30)
[2022-07-28] MEDS: hydrOXYzine HCl 25 MG TAB PO SCH (22:31)
[2022-07-28] MEDS: LACTATED RINGER'S 1,000 ML IV SCH (22:32)
[2022-07-28] MEDS: metroNIDAZOLE 500 MG/100 ML BAG IV SCH (22:32)
[2022-07-29] MEDS: MAGNESIUM SULFATE / D5W 1 GM/100 ML BAG IV SCH (00:09)
[2022-07-29] MEDS ORDERED: HEPARIN 100 UNIT/ML 5ML FLUSH FLUSH PRN (00:46)
[2022-07-29] MEDS: metroNIDAZOLE 500 MG/100 ML BAG IV SCH ×3 (06:03→20:50)
[2022-07-29 06:25] LABS: BUN Creatinine Ratio 26.9 (10-20); Calcium 7.5 mg/dl (8.5-10.1); Creatinine Clr Calc Pharmacy 136.6 ml/min; Est GFR (African American) 130.6 ml/min; Est GFR (Non-African American) 112.7 ml/min; Potassium 3.6 mmol/L (3.5-5.1)
[2022-07-29] MEDS: MoRPHine SULFATE CR 60 MG TABCR PO SCH ×2 (09:21→20:49)
[2022-07-29] MEDS: PANTOprazole 40 MG TAB PO SCH (09:22)
[2022-07-29] MEDS: CIPROFLOXACIN / D5W 400 MG/200 ML BAG IV SCH ×2 (09:22→19:36)
[2022-07-29] MEDS: GABAPENTIN 600 MG TAB PO SCH ×2 (09:22→20:50)
[2022-07-29] MEDS: TAMSULOSIN HCL 0.4 MG CAP PO SCH ×2 (09:22→20:50)
[2022-07-29] MEDS: FAMOTIDINE 20 MG TAB PO SCH (09:22)
[2022-07-29] MEDS: SERTRALINE HCL 100 MG TABLET PO SCH (09:22)
--- NOTE | 2022-07-29 11:15 | Surgery Consultation ---
Date of Consultation July 29, 2022 Assessment & Plan (1) Adenocarcinoma of rectum: Likely perforated rectal cancer. He is currently stable with no urgent surgical indication. I would recommend having him seen by his colorectal surgeon at with [facility] soon as possible. Continue IV fluids and IV antibiotics. There is nothing surgically we could offer him here. We will sign off please call me if any questions. (2) Perirectal abscess: History of Present Illness Attending Physician: Miguel Cunningham MD History of Present Illness 62-year-old male currently being treated for rectal cancer. He has had many sessions of radiation treatment as well as oral and IV chemotherapy. He already has a colorectal surgeon associated with [facility] who we saw in [place] and he is scheduled this week with a urologist in [place] to help coordinate his definitive surgery. He presented to the emergency room upon the assistance of his sister for generalized weakness failure to thrive weight loss dehydration etc. He does state he has painful bowel movements but this is not new. He states he is feeling much better than he did yesterday when he came in. Allergies Allergy/AdvReac Type Severity Reaction Status Date / Time shellfish derived Allergy Severe ANAPHYLACTI Verified 07/28/22 19:13 C amoxicillin Allergy Intermediate HIVES Verified 07/28/22 19:13 blue dye Allergy Intermediate HIVES, Verified 07/28/22 19:13 BLISTERS doxycycline Allergy Intermediate HIVES Verified 07/28/22 19:13 Fish Containing Products Allergy Intermediate HIVES, Verified 07/28/22 19:13 FEVER lisinopril Allergy Intermediate HIVES Verified 07/28/22 19:13 oseltamivir Allergy Intermediate HIVES, Verified 07/28/22 19:13 BLISTERS tetanus toxoid, adsorbed Allergy Intermediate FEVER Verified 07/28/22 19:13 Home Medications Medication Instructions Recorded Confirmed Type gabapentin 600 mg tablet 600 mg PO BID 12/14/21 07/28/22 History hydroxyzine HCl 25 mg tablet 25 - 50 mg PO HS 12/14/21 07/28/22 History pantoprazole 40 mg tablet,delayed 40 mg PO QAM 12/14/21 07/28/22 History release multivitamin 1 tab PO DAILY 02/08/22 07/28/22 History famotidine 20 mg tablet 20 mg PO DAILY 07/09/22 07/28/22 History hydromorphone 8 mg tablet 8 mg PO Q3H PRN Pain 07/09/22 07/28/22 History lidocaine-prilocaine 2.5 %-2.5 % 1 applic topical DIRECTED PRN 07/09/22 07/28/22 History topical cream PORT ACCESS sertraline 100 mg tablet 100 mg PO DAILY 07/09/22 07/28/22 History Diltiazem 1 applic topical TID 07/21/22 07/28/22 History diphenoxylate-atropine 2.5 1 tab PO Q6H PRN Diarrhea 07/21/22 07/28/22 History mg-0.025 mg tablet loperamide 2 mg capsule 2 mg PO Q6H PRN Diarrhea 07/21/22 07/28/22 History (Anti-Diarrheal (loperamide)) morphine 60 mg tablet,extended 60 mg PO Q12H 07/21/22 07/28/22 History release (MS Contin) tamsulosin 0.4 mg capsule 0.4 mg PO BID 07/21/22 07/28/22 History Patient History Medical History Depression with history of prior SI Hypertension Rectal cancer Rhabdomyolysis Sepsis Surgical History History of colonoscopy (01/02/22) Dr. Donna Huynh at [facility] History of hernia surgery (2017) History of incision and drainage (12/14/21) Perirectal Abscess - Right Dr. Silvano Cui History of mandibular surgery (as a teenager) Family History Father Lung cancer Mother Lung cancer Son Colorectal cancer Son No problems noted. Sister No problems noted. Sister No problems noted. 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 There is been obvious recent weight loss. He is alert and oriented. Fatigued. Eyes: PERRL, conjunctivae normal, anicteric sclerae EOM intact bilaterally ENMT: external ear and nose normal, oropharynx normal Ears: no hearing impairment Neck: trachea midline, no thyromegaly Respiratory: normal respiratory effort; no respiratory distress and does not use accessory muscles Cardiovascular: Rate/Rhythm: regular rate and regular rhythm Gastrointestinal (Abdomen): normal bowel sounds, soft, nontender, no hepatosplenomegaly Skin: no rashes, warm and dry Psychiatric: Orientation: alert, oriented x 3 and cooperative Results & Data ([facility]) Vital Signs (Past 12 Hours) Vital Signs Temp Pulse Resp BP Pulse Ox O2 Del Method 07/29/22 07:25 36.7 C 92 H 18 152/84 H 97 Room Air 07/29/22 03:39 150/86 H PG Care Time/CCT Total # of Minutes Spent Total Time Spent with Patient: Total time spent is greater than 50% in coordination of care (as documented) at patient's floor/unit and/or counseling patient: Coding Level of Care Code 47681 Inpt Consult Level 4 Diagnoses Adenocarcinoma of rectum C20 Perirectal abscess K61.1
--- NOTE | 2022-07-29 11:52 | Hospitalist Progress Note ---
Date of Service July 29, 2022 Assessment & Plan (1) Weakness: Plan: Much improved with IV fluid rehydration and IV antibiotics. Continue oral intake has tolerated. (2) Adenocarcinoma of rectum: Plan: Has surgery and urology follow-up scheduled with [facility]. Supportive care. (3) Hypertension: Plan: Elevated blood pressure noted on admission. Will follow. (4) Depression: Plan: Chronic. Treated with sertraline. (5) UTI (urinary tract infection): Plan: Known colovesical fistula. Currently on Cipro and Flagyl. DVT Ppx - Lovenox sq Code - Full Plan Hopefully home tomorrow, July 30, with eventual follow-up next week with [facility] surgery and urology Admission and Anticipated Discharge Date Admission Date: July 28, 2022 Subjective Alert and oriented. Pleasant. He is stating he feels much better since admission. Surgery consultation as expected recommends follow-up with his cancer surgeon and urologist as scheduled next week. He remains on intravenous Cipro and Flagyl along with IV fluids. Hopefully he can go home tomorrow, July 30 Review of Systems Review of Systems: Constitutional-no fever or chills ENT-no blurred vision, no double vision, no epistaxis, no sore throat Respiratory-no cough, no wheezing, no shortness of breath Cardiac-no palpitations, no chest pain, no syncope GI-no nausea, vomiting, diarrhea, melena, hematochezia -he is passing some air and fecal material when he urinates. No hematuria Musculoskeletal-no joint pain, no muscle tenderness. Weakness has improved considerably Skin-no bruising, no rashes, no pruritus Neuro-no isolated weakness, no paresthesia, no weakness Psych-no depression, no anxiety Physical Exam Physical Exam: General-alert and oriented x3, no fevers, no chills. Chronically ill and cachectic appearing HEENT-head atraumatic and normocephalic, pupils equal and reactive to light, extraocular muscles intact Neck-no lymphadenopathy or thyromegaly, trachea midline Chest-clear to auscultation percussion. No rales wheezing or rhonchi Cardiac-regular rate and rhythm, normal S1 and S2, no murmurs Abdomen-normal bowel sounds, nontender, no hepatosplenomegaly Extremities-no cyanosis, clubbing, or edema Neuro-cranial nerves II through XII intact, motor and sensory function within normal limits, strength symmetrical , no focal deficits Psych-normal affect, normal mood Results & Data Results & Data ([facility]) Vital Signs (Past 12 Hours) Vital Signs Temp Pulse Resp BP Pulse Ox O2 Del Method 07/29/22 07:25 36.7 C 92 H 18 152/84 H 97 Room Air 07/29/22 03:39 150/86 H Laboratory Results 07/28/22 15:25 07/29/22 05:45 PG Care Time/CCT Total # of Minutes Spent Total Time Spent with Patient: Total time spent is greater than 50% in coordination of care (as documented) at patient's floor/unit and/or counseling patient: Coding Level of Care Code 87934 Subseq Hosp Care Lvl 3 Diagnoses Weakness R53.1 Adenocarcinoma of rectum C20 Hypertension I10 Depression F32.9 UTI (urinary tract infection) N39.0
[2022-07-29] MEDS: LACTATED RINGER'S 1,000 ML IV SCH (12:26)
[2022-07-29] MEDS: ENOXAPARIN INJ 40 MG/0.4 ML SYR SQ SCH (20:40)
[2022-07-29] MEDS: hydrOXYzine HCl 25 MG TAB PO SCH (20:50)
[2022-07-30] MEDS: metroNIDAZOLE 500 MG/100 ML BAG IV SCH (05:32)
[2022-07-30 06:45] LABS: BUN Creatinine Ratio 22.8 (10-20); Calcium 7.5 mg/dl (8.5-10.1); Creatinine Clr Calc Pharmacy 124.6 ml/min; Est GFR (African American) 125.8 ml/min; Est GFR (Non-African American) 108.5 ml/min; Potassium 3.7 mmol/L (3.5-5.1)
[2022-07-30 06:58] LABS: Hematocrit (blood only) 25.4 % (40.1-51.0); Hemoglobin 8.3 g/dl (14.0-18.0); Mean Corpuscular Hemoglobin 28.9 pg (25.0-34.0); Mean Corpuscular Hgb Conc 32.7 g/dL (32.0-36.0); Mean Corpuscular Volume 88.5 fL (80.0-100.0); Mean Platelet Volume 9.3 fL (9.4-12.4); Platelet Count 122 K/uL (130-400); RDW Coefficient of Variation 17.3 % (11.5-14.5); RDW Standard Deviation 56.2 fL (36.4-46.3); Red Blood Count 2.87 M/uL (4.63-6.08); White Blood Count 5.82 K/ul (4.8-10.8)
[2022-07-30 07:36] VITALS: BP 131/78; PULSE 95; TEMP 98.6; O2SAT 95
[2022-07-30 07:45] LABS: Basophils # (auto) 0.02 K/uL (0-0.2); Basophils % (auto) 0.3 %; Eosinophils # (auto) 0.09 K/uL (0-0.50); Eosinophils % (auto) 1.5 %; Immature Granulocytes # (auto) 0.38 K/uL (0.00-0.02); Immature Granulocytes % (auto) 6.5 %; Lymphocytes % (auto) 6.9 %; Monocytes # (auto) 0.41 K/uL (0.24-0.82); Neutrophils # (auto) 4.52 K/uL (1.4-6.5); Neutrophils % (auto) 77.8 %; Spherocytes Occasional
[2022-07-30] MEDS: MoRPHine SULFATE CR 60 MG TABCR PO SCH (08:41)
[2022-07-30] MEDS: FAMOTIDINE 20 MG TAB PO SCH (08:41)
[2022-07-30] MEDS: PANTOprazole 40 MG TAB PO SCH (08:41)
[2022-07-30] MEDS: GABAPENTIN 600 MG TAB PO SCH (08:41)
[2022-07-30] MEDS: SERTRALINE HCL 100 MG TABLET PO SCH (08:41)
[2022-07-30] MEDS: TAMSULOSIN HCL 0.4 MG CAP PO SCH (08:41)
[2022-07-30] MEDS: CIPROFLOXACIN / D5W 400 MG/200 ML BAG IV SCH (08:41)
--- NOTE | 2022-07-30 10:51 | Discharge Summary ---
Date of Service July 30, 2022 Admission HPI Per Admitting Provider Miguel Napier is an unfortunate 62yo male with history of rectal adenocarcinoma diagnosed in December 2021 s/p XRT x 26 treatments and Xeloda oral chemotherapy. He completed 5 of 8 cycles of FOLFOX chemotherapy which was discontinued due to weight loss and generalized weakness. Patient follows with specialists at [facility] in [place] - Dr. Camacho from Colorectal surgery and Dr. Cantor from Medical Oncology. He has also been seen locally by Radiation Oncology. 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 He is to see Colorectal Surgery and Urology next week (August 01 or ) to discuss placement of a colostomy and possible urostomy. Patient reports ongoing diarrhea for the last 6 weeks as well as passage of fecal-contaminated urine and air from his penis - secondary to fistula formation. He has been feeling ill over the last several days - has been sleeping most of the day, not eating or drinking and has severe weakness and fatigue. He had some worsening fullness and discomfort in his abdomen and rectal area today. Also complaining of chills. He denies fever, chest pain, cough, SOB, nausea or vomiting. He has had significant unintentional weight loss over the last several weeks - patient thinks possibly close to 50#. Patient's sister insisted that he come to the ER this evening. In the ER patient is afebrile, hypertensive otherwise HD stable. He is chronically ill in appearance but not acutely toxic. Laboratory workup as below reveals stable normochromic, normocytic anemia. Mild hypokalemia with K=3 and UA suggestive of infection. CT imaging as below with possible interval development of rectal abscess. Images were reviewed with patient's Colorectal Surgeon from [facility], Dr. Camacho. He does not feel that any acute intervention is warranted at this time. He recommended antibiotic therapy for now. 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 Chronically ill and cachectic appearing HEENT-head atraumatic and normocephalic, pupils equal and reactive to light, extraocular muscles intact Neck-no lymphadenopathy or thyromegaly, trachea midline Chest-clear to auscultation percussion. No rales wheezing or rhonchi Cardiac-regular rate and rhythm, normal S1 and S2, no murmurs Abdomen-normal bowel sounds, nontender, no hepatosplenomegaly Extremities-no cyanosis, clubbing, or edema Neuro-cranial nerves II through XII intact, motor and sensory function within normal limits, strength symmetrical , no focal deficits Psych-normal affect, normal mood Discharge Data Allergies Allergy/AdvReac Type Severity Reaction Status Date / Time shellfish derived Allergy Severe ANAPHYLACTI Verified 07/28/22 19:13 C amoxicillin Allergy Intermediate HIVES Verified 07/28/22 19:13 blue dye Allergy Intermediate HIVES, Verified 07/28/22 19:13 BLISTERS doxycycline Allergy Intermediate HIVES Verified 07/28/22 19:13 Fish Containing Products Allergy Intermediate HIVES, Verified 07/28/22 19:13 FEVER lisinopril Allergy Intermediate HIVES Verified 07/28/22 19:13 oseltamivir Allergy Intermediate HIVES, Verified 07/28/22 19:13 BLISTERS tetanus toxoid, adsorbed Allergy Intermediate FEVER Verified 07/28/22 19:13 Consultations 07/28/22 19:14 ED Decision to Admit Stat Ordered Studies 07/28/22 16:19 CT Abd and Pelvis [CT abd pelvis IV con only] Stat Hospital Course (1) Weakness: Much improved with IV fluid rehydration and IV antibiotics. Continue oral intake has tolerated. He is back to his baseline (2) Adenocarcinoma of rectum: Has surgery and urology follow-up scheduled with [facility]. Supportive care. Surgery consultation appreciated. (3) Hypertension: Elevated blood pressure noted on admission. Will follow. Now normalized (4) Depression: Chronic. Treated with sertraline. (5) UTI (urinary tract infection): Known colovesical fistula. Currently on Cipro and Flagyl. DVT Ppx - Lovenox sq Code - Full Plan home today July 30, with eventual follow-up next week with [facility] surgery and urology. 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 Urinary tract infection. Volume depletion Activity: Resume your previous activity Non-emergency contact: Primary Care Provider Call non-emergency contact if: you have any medication questions and your symptoms worsen Follow-up/Referrals: Heather Peterson PA-C [Primary Care Provider] - Diet: Heart Healthy Addtl Attending Provider Instructions: Continue to take Cipro and Flagyl by mouth as prescribed Pending Studies at Discharge: No Stand-Alone Forms: [facility], Smoking Cessation Medications and DC Order Prescriptions: New ciprofloxacin HCl [Cipro] 500 mg tablet 500 mg PO BID Qty: 20 0RF metronidazole 500 mg tablet 500 mg PO TID Qty: 30 0RF Continued multivitamin Tablet 1 tab PO DAILY loperamide [Anti-Diarrheal (loperamide)] 2 mg capsule 2 mg PO Q6H PRN (Reason: Diarrhea) diphenoxylate-atropine 2.5-0.025 mg tablet 1 tab PO Q6H PRN (Reason: Diarrhea) tamsulosin 0.4 mg capsule 0.4 mg PO BID Diltiazem 20 mg/mL gel 1 applic topical TID Rx Instructions: administer per rectum TID morphine [MS Contin] 60 mg tablet extended release 60 mg PO Q12H Rx Instructions: 1 tablet in the morning and 1 tablet before bedtime hydromorphone 8 mg tablet 8 mg PO Q3H PRN (Reason: Pain) sertraline 100 mg tablet 100 mg PO DAILY lidocaine-prilocaine 2.5-2.5 % Cream 1 applic topical DIRECTED PRN (Reason: PORT ACCESS) famotidine 20 mg Tablet 20 mg PO DAILY gabapentin 600 mg tablet 600 mg PO BID Rx Instructions: is ordered qid pantoprazole 40 mg tablet,delayed release (DR/EC) 40 mg PO QAM hydroxyzine HCl 25 mg tablet 25 - 50 mg PO HS Discharge Orders: Discharge Order (Routine); Ordered 07/30/22 Ordered By: Miguel Cunningham Admission Data Admit Date/Time: 07/28/22 20:14 Attending Provider: Miguel Cunningham Admit Provider: Galina Reeves Primary Care Provider: Heather Peterson Other Providers: Galina Reeves Coding Level of Care Code D/C DAY MANAGEMENT >30 MINS Diagnoses Weakness R53.1 Adenocarcinoma of rectum C20 Hypertension I10 Depression F32.9 UTI (urinary tract infection) N39.0
== END 2022-07-30 16:29 | disposition home or self-care (01) | DRG 699 ==
LOC: ED 14:31 → SUATTDRO 20:14 → 3E 20:14
DX: C20 Malignant neoplasm of rectum; Z87.891 Personal history of nicotine dependence; E86.0 Dehydration; E87.6 Hypokalemia; R19.7 Diarrhea, unspecified; Z88.7 Allergy status to serum and vaccine; N39.0 Urinary tract infection, site not specified; N32.1 Vesicointestinal fistula; Z92.3 Personal history of irradiation

== ENCOUNTER 2022-08-13 18:53 | Observation (INO) ==
[2022-08-13 19:37] LABS: Basophils # (auto) 0.02 K/uL (0-0.2); Basophils % (auto) 0.5 %; Eosinophils # (auto) 0.03 K/uL (0-0.50); Eosinophils % (auto) 0.7 %; Hematocrit (blood only) 33.6 % (40.1-51.0); Hemoglobin 11.2 g/dl (14.0-18.0); Immature Granulocytes # (auto) 0.02 K/uL (0.00-0.02); Immature Granulocytes % (auto) 0.5 %; Lymphocytes # (auto) 0.36 K/uL (1.2-3.4); Mean Corpuscular Hemoglobin 29.7 pg (25.0-34.0); Mean Corpuscular Hgb Conc 33.3 g/dL (32.0-36.0); Mean Corpuscular Volume 89.1 fL (80.0-100.0); Mean Platelet Volume 9.9 fL (9.4-12.4); Monocytes # (auto) 0.31 K/uL (0.24-0.82); Monocytes % (auto) 7.7 %; Neutrophils # (auto) 3.28 K/uL (1.4-6.5); Neutrophils % (auto) 81.6 %; Platelet Count 263 K/uL (130-400); RDW Coefficient of Variation 17.7 % (11.5-14.5); RDW Standard Deviation 58.4 fL (36.4-46.3); Red Blood Count 3.77 M/uL (4.63-6.08); White Blood Count 4.02 K/ul (4.8-10.8)
[2022-08-13 19:55] LABS: Albumin Globulin Ratio 1.1 (0.9-2); Albumin Level 3.2 gm/dl (3.4-5.0); BUN Creatinine Ratio 22.7 (10-20); Bilirubin,Total 0.4 mg/dl (0.2-1.0); Calcium 8.4 mg/dl (8.5-10.1); Creatinine Clr Calc Pharmacy 104.3 ml/min; Est GFR (African American) 118.4 ml/min; Est GFR (Non-African American) 102.2 ml/min; Globulin 2.9 gm/dl (2.5-4.0); Potassium 3.6 mmol/L (3.5-5.1); Total Protein 6.1 gm/dl (6.0-8.3)
--- NOTE | 2022-08-13 21:56 | Emergency Department Note ---
History of Present Illness General Chief complaint: Hypotension Stated complaint: DEHDRATED, LOW BLOOD PRESSURE Time Seen by Provider: 08/13/22 21:55 History of Present Illness Maximum Pain Intensity: 7 This 62-year-old male patient presents to the emergency department with his sister for evaluation of dehydration and low blood pressure. The patient states that he feels weak and feels like he is almost passing out. He is unable to walk because of the weakness. He is eating, but still losing weight. He is also having problems getting to the bathroom in time because of the weakness. He states that he is having more urine come out of his rectum than his penis. Has a history of rectal adenocarcinoma diagnosed in December 2021 status post XRT x 26 treatments and Xeloda oral chemotherapy and 5/8 cycles of FOLFOX chemotherapy. 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 He is following with colorectal surgery and urology at [place], but he does not have a date for surgery yet. Symptoms started to get progressively worse yesterday. The patient was transferred to [facility] on 07/10/2022 for evaluation of the new fistula and was also admitted to [facility] on 07/28/22 with IV fluids, Cipro, and Flagyl that seemed to help a lot with his symptoms per patient. He states that he felt much improved after inpatient treatment, but then deteriorated once he got home. He thinks he is still on the Cipro and Flagyl, but thinks he's almost out of it. He has been sleeping a lot during the day and then will sometimes miss his medication. Still has rectal pain and penile pain with urination - no change in his symptoms, just the same pain that he has been having. Home Medications Medication Instructions Recorded Confirmed Type gabapentin 600 mg tablet 600 mg PO BID 12/14/21 07/28/22 History hydroxyzine HCl 25 mg tablet 25 - 50 mg PO HS 12/14/21 07/28/22 History pantoprazole 40 mg tablet,delayed 40 mg PO QAM 12/14/21 07/28/22 History release multivitamin 1 tab PO DAILY 02/08/22 07/28/22 History famotidine 20 mg tablet 20 mg PO DAILY 07/09/22 07/28/22 History hydromorphone 8 mg tablet 8 mg PO Q3H PRN Pain 07/09/22 07/28/22 History lidocaine-prilocaine 2.5 %-2.5 % 1 applic topical DIRECTED PRN 07/09/22 History topical cream PORT ACCESS sertraline 100 mg tablet 100 mg PO DAILY 07/09/22 07/28/22 History Diltiazem 1 applic topical TID 07/21/22 07/28/22 History diphenoxylate-atropine 2.5 1 tab PO Q6H PRN Diarrhea 07/21/22 07/28/22 History mg-0.025 mg tablet loperamide 2 mg capsule 2 mg PO Q6H PRN Diarrhea 07/21/22 07/28/22 History (Anti-Diarrheal (loperamide)) morphine 60 mg tablet,extended 60 mg PO Q12H 07/21/22 07/28/22 History release (MS Contin) tamsulosin 0.4 mg capsule 0.4 mg PO BID 07/21/22 07/28/22 History ciprofloxacin HCl 500 mg tablet 500 mg PO BID #20 tabs 07/30/22 Rx (Cipro) metronidazole 500 mg tablet 500 mg PO TID #30 tabs 07/30/22 Rx Allergies Allergy/AdvReac Type Severity Reaction Status Date / Time shellfish derived Allergy Severe ANAPHYLACTI Verified 07/28/22 19:13 C amoxicillin Allergy Intermediate HIVES Verified 07/28/22 19:13 blue dye Allergy Intermediate HIVES, Verified 07/28/22 19:13 BLISTERS doxycycline Allergy Intermediate HIVES Verified 07/28/22 19:13 Fish Containing Products Allergy Intermediate HIVES, Verified 07/28/22 19:13 FEVER lisinopril Allergy Intermediate HIVES Verified 07/28/22 19:13 oseltamivir Allergy Intermediate HIVES, Verified 07/28/22 19:13 BLISTERS tetanus toxoid, adsorbed Allergy Intermediate FEVER Verified 07/28/22 19:13 Past Med/Surg History Medical History (Updated 08/14/22 @ 10:26 by Nubia Tomlin PA-C) Adenocarcinoma of rectum (12/14/21) Depression with history of prior SI Hypertension Perirectal abscess Rectal cancer Rhabdomyolysis Sepsis Surgical History History of colonoscopy (01/02/22) Dr. Donna Huynh at [facility] History of hernia surgery (2017) History of incision and drainage (12/14/21) Perirectal Abscess - Right Dr. Silvano Cui History of mandibular surgery (as a teenager) Family History Father Lung cancer Mother Lung cancer Son Colorectal cancer Son No problems noted. Sister No problems noted. Sister No problems noted. 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 and A total of 10 systems reviewed and were otherwise negative Physical Exam Vital Signs Vital Signs - 24 hr 08/13/22 19:07 08/13/22 21:56 08/13/22 21:57 Temperature 36.8 C Temperature Source Temporal Artery Scan Pulse Rate 85 Pulse Rate [Finger] 75 Pulse Rate from SpO2 Sensor Respiratory Rate 20 18 Respiratory Effort / Characteristics Non-Labored Spontaneous Respiratory Depth Normal Blood Pressure 92/60 L Blood Pressure [Right Arm] 116/80 Blood Pressure Mean 70 Blood Pressure Mean [Right Arm] 92 Pulse Oximetry 100 99 Oxygen Delivery Method Room Air Room Air Sepsis New/Unexplained Change in Mental Status N/A Sepsis Action Taken by Nursing No Action Required 08/13/22 21:45 08/13/22 21:50 08/13/22 22:00 Temperature Temperature Source Pulse Rate 78 71 Pulse Rate [Finger] Pulse Rate from SpO2 Sensor 73 69 Respiratory Rate 17 18 Respiratory Effort / Characteristics Respiratory Depth Blood Pressure 135/82 Blood Pressure [Right Arm] Blood Pressure Mean 99 Blood Pressure Mean [Right Arm] Pulse Oximetry 100 100 Oxygen Delivery Method Sepsis New/Unexplained Change in Mental Status Sepsis Action Taken by Nursing 08/13/22 22:00 08/13/22 22:10 08/13/22 22:20 Temperature Temperature Source Pulse Rate 77 71 72 Pulse Rate [Finger] Pulse Rate from SpO2 Sensor 75 65 71 Respiratory Rate 21 22 17 Respiratory Effort / Characteristics Respiratory Depth Blood Pressure Blood Pressure [Right Arm] Blood Pressure Mean Blood Pressure Mean [Right Arm] Pulse Oximetry 99 100 99 Oxygen Delivery Method Sepsis New/Unexplained Change in Mental Status Sepsis Action Taken by Nursing 08/13/22 22:30 08/13/22 22:30 08/13/22 22:40 Temperature Temperature Source Pulse Rate 77 73 Pulse Rate [Finger] Pulse Rate from SpO2 Sensor 69 70 Respiratory Rate 20 18 Respiratory Effort / Characteristics Respiratory Depth Blood Pressure 134/87 Blood Pressure [Right Arm] Blood Pressure Mean 102 Blood Pressure Mean [Right Arm] Pulse Oximetry 100 98 Oxygen Delivery Method Sepsis New/Unexplained Change in Mental Status Sepsis Action Taken by Nursing 08/13/22 22:50 08/13/22 23:00 08/13/22 23:00 Temperature Temperature Source Pulse Rate 69 76 Pulse Rate [Finger] Pulse Rate from SpO2 Sensor 71 76 Respiratory Rate 15 14 Respiratory Effort / Characteristics Respiratory Depth Blood Pressure 155/90 H Blood Pressure [Right Arm] Blood Pressure Mean 111 Blood Pressure Mean [Right Arm] Pulse Oximetry 98 99 Oxygen Delivery Method Sepsis New/Unexplained Change in Mental Status Sepsis Action Taken by Nursing 08/13/22 23:10 08/13/22 23:20 08/13/22 23:30 Temperature Temperature Source Pulse Rate 74 75 Pulse Rate [Finger] Pulse Rate from SpO2 Sensor 74 Respiratory Rate 14 16 Respiratory Effort / Characteristics Respiratory Depth Blood Pressure 153/101 H Blood Pressure [Right Arm] Blood Pressure Mean 118 Blood Pressure Mean [Right Arm] Pulse Oximetry 99 Oxygen Delivery Method Sepsis New/Unexplained Change in Mental Status Sepsis Action Taken by Nursing 08/13/22 23:30 08/13/22 23:40 08/14/22 00:00 Temperature Temperature Source Pulse Rate 74 77 Pulse Rate [Finger] Pulse Rate from SpO2 Sensor 76 Respiratory Rate 21 17 23 Respiratory Effort / Characteristics Respiratory Depth Blood Pressure Blood Pressure [Right Arm] Blood Pressure Mean Blood Pressure Mean [Right Arm] Pulse Oximetry 100 Oxygen Delivery Method Sepsis New/Unexplained Change in Mental Status Sepsis Action Taken by Nursing 08/14/22 00:03 08/14/22 00:03 08/14/22 00:10 Temperature Temperature Source Pulse Rate 74 71 Pulse Rate [Finger] Pulse Rate from SpO2 Sensor Respiratory Rate 17 19 Respiratory Effort / Characteristics Respiratory Depth Blood Pressure 169/114 H Blood Pressure [Right Arm] Blood Pressure Mean 132 Blood Pressure Mean [Right Arm] Pulse Oximetry Oxygen Delivery Method Sepsis New/Unexplained Change in Mental Status Sepsis Action Taken by Nursing 08/14/22 00:20 08/14/22 00:30 08/14/22 00:30 Temperature Temperature Source Pulse Rate 73 73 Pulse Rate [Finger] Pulse Rate from SpO2 Sensor Respiratory Rate 16 20 Respiratory Effort / Characteristics Respiratory Depth Blood Pressure 146/95 H Blood Pressure [Right Arm] Blood Pressure Mean 112 Blood Pressure Mean [Right Arm] Pulse Oximetry Oxygen Delivery Method Sepsis New/Unexplained Change in Mental Status Sepsis Action Taken by Nursing 08/14/22 00:40 08/14/22 00:50 08/14/22 01:00 Temperature Temperature Source Pulse Rate 79 74 Pulse Rate [Finger] Pulse Rate from SpO2 Sensor Respiratory Rate 22 22 Respiratory Effort / Characteristics Respiratory Depth Blood Pressure 148/90 H Blood Pressure [Right Arm] Blood Pressure Mean 109 Blood Pressure Mean [Right Arm] Pulse Oximetry Oxygen Delivery Method Sepsis New/Unexplained Change in Mental Status Sepsis Action Taken by Nursing 08/14/22 01:00 08/14/22 01:10 08/14/22 01:20 Temperature Temperature Source Pulse Rate 76 72 87 Pulse Rate [Finger] Pulse Rate from SpO2 Sensor Respiratory Rate 21 23 24 Respiratory Effort / Characteristics Respiratory Depth Blood Pressure Blood Pressure [Right Arm] Blood Pressure Mean Blood Pressure Mean [Right Arm] Pulse Oximetry Oxygen Delivery Method Sepsis New/Unexplained Change in Mental Status Sepsis Action Taken by Nursing 08/14/22 01:30 08/14/22 01:30 08/14/22 01:40 Temperature Temperature Source Pulse Rate 76 77 Pulse Rate [Finger] Pulse Rate from SpO2 Sensor Respiratory Rate 23 20 Respiratory Effort / Characteristics Respiratory Depth Blood Pressure 147/81 H Blood Pressure [Right Arm] Blood Pressure Mean 103 Blood Pressure Mean [Right Arm] Pulse Oximetry Oxygen Delivery Method Sepsis New/Unexplained Change in Mental Status Sepsis Action Taken by Nursing 08/14/22 01:50 08/14/22 02:00 08/14/22 02:30 Temperature Temperature Source Pulse Rate 83 77 74 Pulse Rate [Finger] Pulse Rate from SpO2 Sensor 78 Respiratory Rate 22 16 16 Respiratory Effort / Characteristics Respiratory Depth Blood Pressure Blood Pressure [Right Arm] Blood Pressure Mean Blood Pressure Mean [Right Arm] Pulse Oximetry 97 Oxygen Delivery Method Sepsis New/Unexplained Change in Mental Status Sepsis Action Taken by Nursing 08/14/22 02:40 08/14/22 02:50 Temperature Temperature Source Pulse Rate 79 73 Pulse Rate [Finger] Pulse Rate from SpO2 Sensor 78 74 Respiratory Rate 17 21 Respiratory Effort / Characteristics Respiratory Depth Blood Pressure Blood Pressure [Right Arm] Blood Pressure Mean Blood Pressure Mean [Right Arm] Pulse Oximetry 100 100 Oxygen Delivery Method Sepsis New/Unexplained Change in Mental Status Sepsis Action Taken by Nursing VITALS: Vitals are noted on the nurse's note and reviewed by myself. GENERAL: 62-year-old male who is chronically ill in appearance, appears older than his stated age, and cachectic, but nontoxic and in no acute distress, non- diaphoretic. SKIN: Capillary refill <2 sec. Mild tenting of the skin. HEAD: Normocephalic, atraumatic. EYES: PERRLA. EOMI. Conjunctivae without injection, sclerae without icterus. NOSE: Patent without discharge. MOUTH: Mucous membranes moist. Uvula midline. Airway patent. NECK: Supple without nuchal rigidity. HEART: Regular rate and rhythm without murmurs gallops or rubs. LUNGS: Clear to auscultation bilaterally without wheezes, rales or rhonchi. No retractions or accessory muscle use. ABDOMEN: Positive bowel sounds x 4. Normal tympanic percussion. Soft, diffusely tender to palpation with maximal tenderness on the left side of the abdomen, without masses or organomegaly. Benavidez sign negative. No guarding or rebound tenderness. MUSCULOSKELETAL: Weakness of all extremities, but no other gross musculoskeletal defects. NEURO: Patient was alert and oriented to person place and time. PSYCH: The patient appears upset and depressed about his current health status. He appears defeated that he is having trouble caring for himself at home even with the help of his sisters. No suicidal or homicidal ideology. Course Administered Medications Enoxaparin Sodium (Enoxaparin Inj 30 Mg/0.3 Ml Syr) 30 mg SQ Q24H KAILEE Stop: 09/13/22 08:59 Last Admin: 08/14/22 08:16 Dose: Not Given Documented By: ANN Famotidine (Famotidine 20 Mg Tab) 20 mg PO DAILY KAILEE Stop: 09/13/22 08:59 Last Admin: 08/14/22 08:18 Dose: 20 mg Documented By: ANN Gabapentin (Gabapentin 600 Mg Tab) 600 mg PO BID KAILEE Stop: 09/13/22 08:59 Last Admin: 08/14/22 08:18 Dose: 600 mg Documented By: ANN Lactated Ringer's (Lr) 1,000 mls @ 100 mls/hr IV .Q10H KAILEE Stop: 08/15/22 00:44 Last Admin: 08/14/22 05:45 Dose: 100 mls/hr Documented By: VIOLETTA Morphine Sulfate (Morphine Sulfate Cr 15 Mg Tabcr) 60 mg PO Q12H KAILEE Stop: 08/28/22 08:59 Last Admin: 08/14/22 08:20 Dose: 60 mg Documented By: ANN Pantoprazole Sodium (Pantoprazole 40 Mg Tab) 40 mg PO QAM KAILEE Stop: 09/13/22 08:59 Last Admin: 08/14/22 08:18 Dose: 40 mg Documented By: ANN Sertraline HCl (Sertraline Hcl 100 Mg Tablet) 100 mg PO DAILY KAILEE Stop: 09/13/22 08:59 Last Admin: 08/14/22 08:18 Dose: 100 mg Documented By: ANN Tamsulosin HCl (Tamsulosin Hcl 0.4 Mg Cap) 0.4 mg PO BID KAILEE Stop: 09/13/22 08:59 Last Admin: 08/14/22 08:18 Dose: 0.4 mg Documented By: ANN Discontinued Medications Sodium Chloride (Nss 1000ml) 1,000 mls @ 999 mls/hr IV .Q1H1M ONE Stop: 08/13/22 23:11 Last Infusion: 08/14/22 01:06 Dose: 0 mls/hr Documented By: Admin: 08/13/22 22:17 Dose: 999 mls/hr Documented By: JES Ioversol (Optiray 350 100ml) 100 ml IV ONCE ONE Stop: 08/13/22 23:56 Last Admin: 08/13/22 23:55 Dose: 90 ml Documented By: BARBIE Medical Decision Making Differential Diagnosis Differential diagnosis includes dehydration, worsening infection, worsening malignancy, PE, other cardiopulmonary etiology, or others. Laboratory Data Attestation: I reviewed the patient's lab results. Result diagrams: 08/13/22 19:26 08/13/22 19:26 Lab Results 08/13/22 08/13/22 08/14/22 Range/Units 19:26 19:26 02:15 WBC 4.02 L (4.8-10.8) K/ul RBC 3.77 L (4.63-6.08) M/uL Hgb 11.2 L (14.0-18.0) g/dl Hct 33.6 L (40.1-51.0) % MCV 89.1 (80.0-100.0) fL MCH 29.7 (25.0-34.0) pg MCHC 33.3 (32.0-36.0) g/dL RDW Std Deviation 58.4 H (36.4-46.3) fL RDW Coeff of Raul 17.7 H (11.5-14.5) % Plt Count 263 (130-400) K/uL MPV 9.9 (9.4-12.4) fL Immature Gran % (Auto) 0.5 % Neut % (Auto) 81.6 % Lymph % (Auto) 9.0 % [place] % (Auto) 7.7 % Eos % (Auto) 0.7 % Baso % (Auto) 0.5 % Neut # (Auto) 3.28 (1.4-6.5) K/uL Lymph # (Auto) 0.36 L (1.2-3.4) K/uL [place] # (Auto) 0.31 (0.24-0.82) K/uL Eos # (Auto) 0.03 (0-0.50) K/uL Baso # (Auto) 0.02 (0-0.2) K/uL Immature Gran # (Auto) 0.02 (0.00-0.02) K/uL Sodium 137 (136-145) mmol/L Potassium 3.6 (3.5-5.1) mmol/L Chloride 105 (98-107) mmol/L Carbon Dioxide 27 (21-32) mmol/L Anion Gap 5 (3-11) BUN 15 (6-23) mg/dl Creatinine 0.66 (0.6-1.4) mg/dl Est Cr Clr Drug Dosing 104.3 ml/min Est GFR ( Amer) 118.4 ml/min Est GFR (Non-Af Amer) 102.2 ml/min BUN/Creatinine Ratio 22.7 H (10-20) Glucose 102 H (70-99(Fasting)) mg/dl Calcium 8.4 L (8.5-10.1) mg/dl Total Bilirubin 0.4 (0.2-1.0) mg/dl AST 12 L (13-39) U/L ALT 6 L (7-52) U/L Alkaline Phosphatase 53 (34-104) U/L Total Protein 6.1 (6.0-8.3) gm/dl Albumin 3.2 L (3.4-5.0) gm/dl Globulin 2.9 (2.5-4.0) gm/dl Albumin/Globulin Ratio 1.1 (0.9-2) Urine Color Dark Yellow Urine Appearance Turbid A (Clear) Urine pH 6.5 (4.5-7.5) Ur Specific [place] 1.024 (1.000-1.030) Urine Protein 2+ H (Negative) Urine Glucose (UA) Negative (Negative) Urine Ketones Trace H (Negative) Urine Blood 3+ H (Negative) Urine Nitrite Positive A (Negative) Urine Bilirubin 1+ H (Negative) Urine Urobilinogen Negative (Negative) Ur Leukocyte Esterase 3+ H (Negative) Urine WBC (Auto) >30 H (0-5) /hpf Urine RBC (Auto) 10-30 H (0-4) /hpf U Hyaline Cast (Auto) 0 (0-5) /lpf U Epithel Cells (Auto) >30 H (0-5) /lpf Urine Bacteria (Auto) 1+ H (Negative) Urine Crystals Not Reportable Calcium Oxalate Crystal Present A (None Prsent) SARS-CoV-2, RNA, NAAT (NEGATIVE) 08/14/22 Range/Units 02:40 WBC (4.8-10.8) K/ul RBC (4.63-6.08) M/uL Hgb (14.0-18.0) g/dl Hct (40.1-51.0) % MCV (80.0-100.0) fL MCH (25.0-34.0) pg MCHC (32.0-36.0) g/dL RDW Std Deviation (36.4-46.3) fL RDW Coeff of Raul (11.5-14.5) % Plt Count (130-400) K/uL MPV (9.4-12.4) fL Immature Gran % (Auto) % Neut % (Auto) % Lymph % (Auto) % [place] % (Auto) % Eos % (Auto) % Baso % (Auto) % Neut # (Auto) (1.4-6.5) K/uL Lymph # (Auto) (1.2-3.4) K/uL [place] # (Auto) (0.24-0.82) K/uL Eos # (Auto) (0-0.50) K/uL Baso # (Auto) (0-0.2) K/uL Immature Gran # (Auto) (0.00-0.02) K/uL Sodium (136-145) mmol/L Potassium (3.5-5.1) mmol/L Chloride (98-107) mmol/L Carbon Dioxide (21-32) mmol/L Anion Gap (3-11) BUN (6-23) mg/dl Creatinine (0.6-1.4) mg/dl Est Cr Clr Drug Dosing ml/min Est GFR ( Amer) ml/min Est GFR (Non-Af Amer) ml/min BUN/Creatinine Ratio (10-20) Glucose (70-99(Fasting)) mg/dl Calcium (8.5-10.1) mg/dl Total Bilirubin (0.2-1.0) mg/dl AST (13-39) U/L ALT (7-52) U/L Alkaline Phosphatase (34-104) U/L Total Protein (6.0-8.3) gm/dl Albumin (3.4-5.0) gm/dl Globulin (2.5-4.0) gm/dl Albumin/Globulin Ratio (0.9-2) Urine Color Urine Appearance (Clear) Urine pH (4.5-7.5) Ur Specific [place] (1.000-1.030) Urine Protein (Negative) Urine Glucose (UA) (Negative) Urine Ketones (Negative) Urine Blood (Negative) Urine Nitrite (Negative) Urine Bilirubin (Negative) Urine Urobilinogen (Negative) Ur Leukocyte Esterase (Negative) Urine WBC (Auto) (0-5) /hpf Urine RBC (Auto) (0-4) /hpf U Hyaline Cast (Auto) (0-5) /lpf U Epithel Cells (Auto) (0-5) /lpf Urine Bacteria (Auto) (Negative) Urine Crystals Calcium Oxalate Crystal (None Prsent) SARS-CoV-2, RNA, NAAT NEGATIVE (NEGATIVE) Imaging Data Radiologist's Impression: Abdomen/Pelvis CT 08/13/22 22:11 CT abd pelvis IV con only CLINICAL HISTORY: abdominal pain, dehydration, previous abnormal CT TECHNIQUE: Helical axial images of the abdomen and pelvis were obtained and displayed. Automated dose lowering techniques and/or adjustment according to patient size were utilized for this exam. This exam was performed with intravenous contrast. CT DOSE: 342.04 mGy.cm COMPARISON: Comparison is made to CT abdomen pelvis 07/28/2022 FINDINGS: Lower chest: No acute abnormality. Liver: Unremarkable. No focal lesions are seen. Gallbladder and biliary tree: No calcified gallstones. Normal caliber wall. No intra- or extrahepatic biliary ductal dilation. Pancreas: Unremarkable, no focal lesions. Spleen: Unremarkable. Adrenals: Unremarkable. Kidneys and ureters: Unremarkable. Bladder: The bladder wall is thickened and there is gas in the bladder lumen. Reproductive organs: Prostatic calcifications are seen which may represent prior hemorrhage or granulomatous disease. Bowel: Diverticulosis is seen without evidence of diverticulitis. Thickening of the sigmoid colon is seen. Lymph nodes Retroperitoneal: Unremarkable. Pelvic: Unremarkable. Mesenteric: Unremarkable. Peritoneum: Normal. Vessels: Atherosclerotic calcifications are seen. Abdominal wall: Fat stranding seen in the abdominal wall. Bones: Degenerative changes in the visualized spine. IMPRESSION: 1. Thickened bladder wall with a focus of air. Correlation with recent instrumentation is recommended. Correlation with urinalysis is recommended for cystitis. Previously noted perineal collection has resolved. 2. Numerous diverticula are seen with sigmoid colon thickening. This is similar to prior exam and concerning for diverticulitis. A colovesicular fistula is not definitely seen, however may be present given gas in the bladder, if the bladder is not been recently instrumented. ACT 112: Negative or not required by law. Electronically signed by: Sumanth Henriquez M.D. 08/14/2022 9:28 AM Preliminary Findings Only See Final Report For Complete Findings ADDENDUM - Added by Georgi Dawkins MD on 08/14/2022 12:46 AM (-08:00) Addendum: Additional images have been provided since this dictation, these do n ot change the interpretation. CT ABDOMEN & PELVIS With Contrast: There is moderate stool distention of the colon. There are multiple colonic diverticula with wall thickening of the adjacent urinary bladder and a small locule of air, please correlate for colovesicular fistula. There is a trace right pleural effusion. There is a partially calcified nodule at the left lung base. There are degenerative changes of the thoracolumbar spine. Radiologist: Georgi Dawkins MD Phone:D [phone] Study ready at 00:08 and initial results transmitted at 00:12 MDM Narrative I examined the patient. The patient was initially hypotensive at 92/60, but this improved after 1 L normal saline solution bolus. He declined any med ication for pain or nausea while in the emergency department. Mild leukopenia, but this was improved from his previous leukopenia when he was on chemotherapy. Hemoglobin actually improved at 11.2 compared to 8.3 on 07/30/2022. CMP without significant abnormalities. Urinalysis with possible UTI versus contamination. He is currently on Cipro and Flagyl for the colovesicular fistula which is lik barbie the source if infected. Urine culture pending. COVID was negative. Chest x-ray was interpreted by myself as negative for acute cardiopulmonary etiology. Radiology report is still pending. Previous CT scan of the abdomen and pelvis on 07/28/2022 showed a perirectal fluid collection extending into the right perineum which favors a contained rectal perforation as well as marked wall thickening of the proximal to mid rectum with suggestion of proctocolitis. There was also diffuse mesenteric and retroperitoneal stranding with nonspecific peritonitis within the differential. There is also persistent gas within the bladder and bladder wall thickening. The patient was having abdominal te nderness on exam as well as abdominal pain with hypotension and worsening symptoms at home. Therefore, repeat CT scan of the abdomen pelvis with IV contrast was obtained. This was reviewed by myself and read by stat rad and showed moderate stool distention within the colon as well as multiple dive rticula with wall thickening of the adjacent urinary bladder and a small locule of air - please correlate for colovesicular fistula. I discussed the results of the patient's work-up with the patient and his sister including what appeared to be an improvement of his CT scan after treatment with the Cipro and Flagyl. I discussed whether the patient felt he could be discharged home with his degree of weakness or whether he would prefer admission with plan for possible rehab placement. The patient and his sister stated that he felt he was too weak to be discharged home to care for himself even with the assistance of his sisters. The patient and his sister are very upset in regards to his recent deterioration and feel that he requires a higher level of care. I spoke with the on-call hospitalist who agreed to admit the patient. Please refer to their dictation for further details. The patient's care was transferred to the hospitalist in stable condition. Impression & Plan Hypotension, Rectal cancer, Weakness Discharge Plan Visit Data Chief Complaint: Hypotension Stated Complaint: DEHDRATED, LOW BLOOD PRESSURE ED Provider: Gregory Paul ED Midlevel Provider: Nubia Tomlin Discharge Problem: Hypotension, Rectal cancer, Weakness Patient Disposition: Admitted As Inpatient Condition: Good Discharge Instructions Interventions: ED Discharge Assessment Last Done: 08/14/22 04:38
[2022-08-13] MEDS ORDERED: SODIUM CHLORIDE 0.9% 1000ML 1,000 ML IV ONE (22:11)
[2022-08-13] MEDS ORDERED: OPTIRAY 350 100ml IV ONE (23:55)
--- NOTE | 2022-08-14 02:55 | History & Physical Report ---
Date of Service August 14, 2022 Assessment & Plan (1) Weakness: Plan: 62yo male with adenocarcinoma of the rectum presenting with diffuse generalized weakness. Patient is concerned that he is unable to care for himself at this time. He has family close by that help to care for him. However, at this time he feels that he may need some additional help. -Admit to medical -Fall precautions -IVF and electrolyte repletion -PT/OT evaluation re: possible placement -Food Service Lead consultation re: nutritional evaluation and supplements. Assistance appreciated (2) Rectal cancer: Plan: As above. Patient is to have surgical repair of colovesicular [place] [facility] [place] - no date set as of yet. -Patient completed Ciprofloxacin and Flagyl -Continue Loperamide -Continue Morphine, Dilaudid (3) Depression: Plan: Chronic -Continue Sertraline 100mg po daily History of Present Illness Chief Complaint: weight loss, weakness Primary Care Provider: Heather Peterson PA-C Miguel Napier is a 62yo male with history of rectal adenocarcinoma diagnosed December 2021. He has completed XRT, Xeloda and 5/8 cycles of FOLFOX chemotherapy. He follows predominantly at [facility]. Patient has colovesical fistula formation. He passes urine from his rectum and oftenn passes air from his penis. He was recently seen at [facility] [place] by Colorectal surgery. He is to have fistula repair and placement of ostomy bags. He reports the surgery is not to be scheduled for 4-6 weeks. Patient is very distressed with this news. He has been having progressive functional decline over the last few weeks. He has been trying to eat but continues to lose weight. He reports becoming more and more weak with difficulty ambulating. He oftentimes is not strong enough to get to the bathroom in time and has been having incontinence. He wants to stop eating and drinking because of this incontinence. Patient has been having dizziness and near-syncope. He almost passed out while at [employer]. He does not believe he can survive until surgery. Upon arrival to the ER patient is mildly hypotensive which improved with IVF. He is tearful during my encounter. Feels despair regarding his health. ER Course: NSS x 1L Allergies Allergy/AdvReac Type Severity Reaction Status Date / Time shellfish derived Allergy Severe ANAPHYLACTI Verified 07/28/22 19:13 C amoxicillin Allergy Intermediate HIVES Verified 07/28/22 19:13 blue dye Allergy Intermediate HIVES, Verified 07/28/22 19:13 BLISTERS doxycycline Allergy Intermediate HIVES Verified 07/28/22 19:13 Fish Containing Products Allergy Intermediate HIVES, Verified 07/28/22 19:13 FEVER lisinopril Allergy Intermediate HIVES Verified 07/28/22 19:13 oseltamivir Allergy Intermediate HIVES, Verified 07/28/22 19:13 BLISTERS tetanus toxoid, adsorbed Allergy Intermediate FEVER Verified 07/28/22 19:13 Home Medications Medication Instructions Recorded Confirmed Type gabapentin 600 mg tablet 600 mg PO BID 12/14/21 07/28/22 History hydroxyzine HCl 25 mg tablet 25 - 50 mg PO HS 12/14/21 07/28/22 History pantoprazole 40 mg tablet,delayed 40 mg PO QAM 12/14/21 07/28/22 History release multivitamin 1 tab PO DAILY 02/08/22 07/28/22 History famotidine 20 mg tablet 20 mg PO DAILY 07/09/22 07/28/22 History hydromorphone 8 mg tablet 8 mg PO Q3H PRN Pain 07/09/22 07/28/22 History lidocaine-prilocaine 2.5 %-2.5 % 1 applic topical DIRECTED PRN 07/09/22 07/28/22 History topical cream PORT ACCESS sertraline 100 mg tablet 100 mg PO DAILY 07/09/22 07/28/22 History Diltiazem 1 applic topical TID 07/21/22 07/28/22 History diphenoxylate-atropine 2.5 1 tab PO Q6H PRN Diarrhea 07/21/22 07/28/22 History mg-0.025 mg tablet loperamide 2 mg capsule 2 mg PO Q6H PRN Diarrhea 07/21/22 07/28/22 History (Anti-Diarrheal (loperamide)) morphine 60 mg tablet,extended 60 mg PO Q12H 07/21/22 07/28/22 History release (MS Contin) tamsulosin 0.4 mg capsule 0.4 mg PO BID 07/21/22 07/28/22 History ciprofloxacin HCl 500 mg tablet 500 mg PO BID #20 tabs 07/30/22 Rx (Cipro) metronidazole 500 mg tablet 500 mg PO TID #30 tabs 07/30/22 Rx Past Med/Surg History Medical History (Updated 08/14/22 @ 03:24 by Galina Reeves DO) Adenocarcinoma of rectum (12/14/21) Depression with history of prior SI Hypertension Perirectal abscess Rectal cancer Rhabdomyolysis Sepsis Surgical History History of colonoscopy (01/02/22) Dr. Donna Huynh at [facility] History of hernia surgery (2017) History of incision and drainage (12/14/21) Perirectal Abscess - Right Dr. Silvano Cui History of mandibular surgery (as a teenager) Family History Father Lung cancer Mother Lung cancer Son Colorectal cancer Son No problems noted. Sister No problems noted. Sister No problems noted. 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 How many Children do You have: 2 Feels Safe at Home: Yes Safety Concerns: Feels Safe At This Time Childhood Exposure to Second-Hand Smoke: Yes Diet Comment: admits to eating 1 meal per day to limit bowel movements during the past year weight has: decreased > 10 lbs Dental Care, Regularly: No Assistive Devices: Cane, Denture - Upper and Denture - Lower Assistive Devices Comment: glasses not here with patient Review of Systems Review of Systems: All systems reviewed & are unremarkable except as noted in HPI & below Physical Exam Physical Exam: General: frail, cachectic male patient resting comfortably, NAD, non-toxic in appearance, AA&O x 4, tearful during encounter Skin: warm, dry, intact, no rashes or lesions HEENT: NC/AT, PERRL, EOMI, anicteric sclera, conjunctiva without injection, external ear normal to inspection and nontender, nares patent, moist mucus membranes, dentition intact, no oropharyngeal lesions, neck supple, trachea midline, no LAD, no thyromegaly, no JVD Heart: +S1/S2, regular, no m/r/g Lungs: equal air entry bilaterally, no rales/rhonchi/wheezes Abd: +BS, soft, midly tender in lower abdomen, no masses/organomegaly/ascites Ext: warm, 2+ pulses in UE/LE bilaterally, no clubbing/cyanosis or edema Neuro: nonfocal, patient AA&O x 4, speech intact, no facial droop, moving all extremities on command with equal strength 5/5 Results & Data Results & Data ([facility]) Vital Signs (Past 12 Hours) Vital Signs Temp Pulse Pulse Resp BP BP Pulse Ox 08/13/22 21:57 08/13/22 21:56 75 18 116/80 99 08/13/22 19:07 36.8 C 85 20 92/60 L 100 O2 Del Method 08/13/22 21:57 Room Air 08/13/22 21:56 08/13/22 19:07 Room Air Laboratory Results Laboratory Results WBC 4.02 K/ul (4.8-10.8) L 08/13/22 19: RBC 3.77 M/uL (4.63-6.08) L 08/13/22 19:26 Hgb 11.2 g/dl (14.0-18.0) L 08/13/22 19:26 Hct 33.6 % (40.1-51.0) L 08/13/22 19: MCV 89.1 fL (80.0-100.0) 08/13/22 19: MCH 29.7 pg (25.0-34.0) 08/13/22 19: MCHC 33.3 g/dL (32.0-36.0) 08/13/22 19: RDW Std Deviation 58.4 fL (36.4-46.3) H 08/13/22 19:26 RDW Coeff of Raul 17.7 % (11.5-14.5) H 08/13/22 19: Plt Count 263 K/uL (130-400) 08/13/22 19:26 MPV 9.9 fL (9.4-12.4) 08/13/22 19: Immature Gran % (Auto) 0.5 % 08/13/22 19: Neut % (Auto) 81.6 % 08/13/22 19: Lymph % (Auto) 9.0 % 08/13/22: [place] % (Auto) 7.7 % 08/13/22: Eos % (Auto) 0.7 % 08/13/22 19: Baso % (Auto) 0.5 % 08/13/22: Neut # (Auto) 3.28 K/uL (1.4-6.5) 08/13/22: Lymph # (Auto) 0.36 K/uL (1.2-3.4) L 08/13/22: [place] # (Auto) 0.31 K/uL (0.24-0.82) 08/13/22: Eos # (Auto) 0.03 K/uL (0-0.50) 08/13/22 19: Baso # (Auto) 0.02 K/uL (0-0.2) 08/13/22: Immature Gran # (Auto) 0.02 K/uL (0.00-0.02) 08/13/22 19: Sodium 137 mmol/L (136-145) 08/13/22 19: Potassium 3.6 mmol/L (3.5-5.1) 08/13/22: Chloride 105 mmol/L (98-107) 08/13/22 19: Carbon Dioxide 27 mmol/L (21-32) 08/13/22 19: Anion Gap 5 (3-11) 08/13/22 19: BUN 15 mg/dl (6-23) 08/13/22: Creatinine 0.66 mg/dl (0.6-1.4) 08/13/22: Est Cr Clr Drug Dosing 104.3 ml/min 08/13/22 19: Est GFR ( Amer) 118.4 ml/min 08/13/22 19: Est GFR (Non-Af Amer) 102.2 ml/min 08/13/22 19:26 BUN/Creatinine Ratio 22.7 (10-20) H 08/13/22 19:26 Glucose 102 mg/dl (70-99(Fasting)) H 08/13/22 19:26 Calcium 8.4 mg/dl (8.5-10.1) L 08/13/22 19:26 Total Bilirubin 0.4 mg/dl (0.2-1.0) 08/13/22 19:26 AST 12 U/L (13-39) L 08/13/22 19:26 ALT 6 U/L (7-52) L 08/13/22 19:26 Alkaline Phosphatase 53 U/L (34-104) 08/13/22 19:26 Total Protein 6.1 gm/dl (6.0-8.3) 08/13/22 19: Albumin 3.2 gm/dl (3.4-5.0) L 08/13/22 19:26 Globulin 2.9 gm/dl (2.5-4.0) 08/13/22 19:26 Albumin/Globulin Ratio 1.1 (0.9-2) 08/13/22 19:26 Urine Color Dark Yellow 08/14/22 02:15 Urine Appearance Turbid (Clear) A 08/14/22 02:15 Urine pH 6.5 (4.5-7.5) 08/14/22 02:15 Ur Specific Dexter 1.024 (1.000-1.030) 08/14/22 02:15 Urine Protein 2+ (Negative) H 08/14/22 02:15 Urine Glucose (UA) Negative (Negative) 08/14/22 02:15 Urine Ketones Trace (Negative) H 08/14/22 02:15 Urine Blood 3+ (Negative) H 08/14/22 02:15 Urine Nitrite Positive (Negative) A 08/14/22 02:15 Urine Bilirubin 1+ (Negative) H 08/14/22 02:15 Urine Urobilinogen Negative (Negative) 08/14/22 02:15 Ur Leukocyte Esterase 3+ (Negative) H 08/14/22 02:15 Urine WBC (Auto) >30 /hpf (0-5) H 08/14/22 02:15 Urine RBC (Auto) 10-30 /hpf (0-4) H 08/14/22 02:15 U Hyaline Cast (Auto) 0 /lpf (0-5) 08/14/22 02:15 U Epithel Cells (Auto) >30 /lpf (0-5) H 08/14/22 02:15 Urine Bacteria (Auto) 1+ (Negative) H 08/14/22 02:15 Urine Crystals Not Reportable 08/14/22 02:15 Calcium Oxalate Crystal Present (None Prsent) A 08/14/22 02:15 SARS-CoV-2, RNA, NAAT NEGATIVE (NEGATIVE) 08/14/22 02:40 Code Status & VTE Plan VTE Prophylaxis Plan VTE Prophylaxis will be ordered: Yes PG Care Time/CCT Total # of Minutes Spent Total Time Spent with Patient: Total time spent is greater than 50% in coordination of care (as documented) at patient's floor/unit and/or counseling patient: Coding Level of Care Code 03184 Initial Inpt Care Lvl 2 Diagnoses Weakness R53.1 Rectal cancer C20 Depression F32.9
[2022-08-14 02:59] LABS: Appearance Urine Turbid (Clear); Blood Urine 3+ (Negative); Color Urine Dark Yellow; Epithelial Cell Urine Auto >30 /lpf (0-5); Glucose Urine UA Negative (Negative); Ketones Urine Trace (Negative); Leukocyte Esterase Urine 3+ (Negative); Nitrite Urine Positive (Negative); Protein Urine 2+ (Negative); Specific Gravity Urine 1.024 (1.000-1.030); Urobilinogen Urine Negative (Negative); WBC Urine Automated >30 /hpf (0-5); pH Urine 6.5 (4.5-7.5)
[2022-08-14 03:07] LABS: Bilirubin Urine 1+ (Negative)
[2022-08-14 03:20] LABS: Bacteria Urine Automated 1+ (Negative); Calcium Oxalate Crystals Urine Present (None Prsent); Cast Urine Automated 0 /lpf (0-5)
[2022-08-14] MEDS ORDERED: LOPERAMIDE HCL 2 MG CAP PO PRN (04:45)
[2022-08-14] MEDS ORDERED: ACETAMINOPHEN 325 MG TAB PO PRN (04:45)
[2022-08-14] MEDS ORDERED: DIPHENOXYLATE/ATROPINE 2.5/0.025MG TAB PO PRN (04:45)
[2022-08-14] MEDS ORDERED: ONDANSETRON INJ 2 MG/ML 2 ML VIAL IV PRN (04:45)
[2022-08-14] MEDS: LACTATED RINGER'S 1,000 ML IV SCH ×2 (05:45→16:03)
[2022-08-14] MEDS: ENOXAPARIN INJ 30 MG/0.3 ML SYR SQ SCH (08:16)
[2022-08-14] MEDS: GABAPENTIN 600 MG TAB PO SCH ×2 (08:18→21:56)
[2022-08-14] MEDS: FAMOTIDINE 20 MG TAB PO SCH (08:18)
[2022-08-14] MEDS: PANTOprazole 40 MG TAB PO SCH (08:18)
[2022-08-14] MEDS: TAMSULOSIN HCL 0.4 MG CAP PO SCH ×2 (08:18→21:55)
[2022-08-14] MEDS: SERTRALINE HCL 100 MG TABLET PO SCH (08:18)
[2022-08-14] MEDS: MoRPHine SULFATE CR 15 MG TABCR PO SCH ×2 (08:20→21:57)
--- NOTE | 2022-08-14 09:29 | CT Scan Report ---
CT abd pelvis IV con only CLINICAL HISTORY: abdominal pain, dehydration, previous abnormal CT TECHNIQUE: Helical axial images of the abdomen and pelvis were obtained and displayed. Automated dose lowering techniques and/or adjustment according to patient size were utilized for this exam. This e xam was performed with intravenous contrast. CT DOSE: 342.04 mGy.cm COMPARISON: Comparison is made to CT abdomen pelvis 07/28/2022 FINDINGS: Lower chest: No acute abnormality. Liver: Unremarkable. No focal lesions are seen. Gallbladder and biliary tree: No calcified gallstones. Normal caliber wall. No intra- or extrahepatic biliary ductal dilation. Pancreas: Unremarkable, no focal lesions. Spleen: Unremarkable. Adrenals: Unremarkable. Kidneys and ureters: Unremarkable. Bladder: The bladder wall is thickened and there is gas in the bladder lumen. Reproductive organs: Prostatic calcifications are seen which may represent prior hemorrhage or granul omatous disease. Bowel: Diverticulosis is seen without evidence of diverticulitis. Thickening of the sigmoid colon is seen. Lymph nodes Retroperitoneal: Unremarkable. Pelvic: Unremarkable. Mesenteric: Unremarkable. Peritoneum: Normal. Vessels: Atherosclerotic calcifications are seen. Abdominal wall: Fat stranding seen in the abdominal wall. Bones: Degenerative changes in the visualized spine. IMPRESSION: 1. Thickened bladder wall with a focus of air. Correlation with recent instrumentation is recommende d. Correlation with urinalysis is recommended for cystitis. Previously noted perineal collection has resolved. 2. Numerous diverticula are seen with sigmoid colon thickening. This is similar to prior exam and co ncerning for diverticulitis. A colovesicular fistula is not definitely seen, however may be present g iven gas in the bladder, if the bladder is not been recently instrumented. ACT 112: Negative or not required by law. Electronically signed by: Sumanth Henriquez M.D. 08/14/2022 9:28 AM
[2022-08-14 09:46] LABS: Magnesium 1.9 mg/dl (1.7-2.4)
--- NOTE | 2022-08-14 11:15 | XRay Report ---
XR chest 1V portable CLINICAL HISTORY: Shortness of breath. COMPARISON STUDY: Chest radiograph July 28, 2022. FINDINGS: Right internal jugular Usthit-d-Owvp is in place. Lung volumes are normal. Lungs are clear. There is no pneumothorax or pleural effusion. Cardiac size is normal. Mediastinal contours are alphonse l. There is no evidence for pulmonary edema. IMPRESSION: No acute cardiopulmonary findings. ACT 112: Negative or not required by law. Electronically signed by: Manuel Nazario M.D. 08/14/2022 11:13 AM
--- NOTE | 2022-08-14 15:34 | History & Physical Bridge Note ---
Date of Service August 14, 2022 History & Physical Bridge Note I have examined the patient, reviewed the History & Physical and in the interval since the performance of the History & Physical I have noted the following changes of clinical significance: no changes noted Patient evaluated this afternoon Resting in bed, no acute distress Did have hamburger this morning, taste finally coming back from Chemo He is feeling much better than on admit, no further syncopal type episode and he thinks from dehydration. taking supplements but chronic diarrhea, urination through rectum and bowels/gas through urethra. Had CM assist, scheduled w/ Dr Herndon for September 26 at [facility]. Discussed with nutrition, given diarrhea with all intake from radiation, consideration to start TPN. Discussed risks, including increased risk for infection. Would like to optimize nutrition prior to surgery. Will reach out to Dr Herndon to discuss if rec's for TPN prior to starting Patient denies any fever/chills, chest pain, shortness of breath, nausea or vomiting. He does take Dilaudid and oxycodone at home for chronic rectal pain, does note sometimes effective but possible tolerance but no need for increase currently. Thankful for time spent spent by admitting team and myself for listening to him. Supervising Physician Co-Signing Physician Notes PA Supervision Note: I did not personally see or examine the patient today, but I verified all lazaro points of BILL Max's assessment and plan with the following exceptions/additions: Consider Fentanyl patch instead of MS Contin due to severe diarrhea/high transit time of passage of stool--> may not be absorbing extended release po pain meds.
[2022-08-14] MEDS: LOPERAMIDE HCL 2 MG CAP PO SCH ×2 (16:02→21:55)
--- NOTE | 2022-08-14 16:16 | XCELERA ---
[id number] \\[id number]
[2022-08-14] MEDS ORDERED: TPN/PPN CONSULT PHARMACY PRN (16:47)
--- NOTE | 2022-08-14 16:54 | Electrocardiogram Report ---
Test Reason : Blood Pressure : / mmHG Vent. Rate : 089 BPM Atrial Rate : 089 BPM P-R Int : 118 ms QRS Dur : 080 ms QT Int : 378 ms P-R-T Axes : 067 030 012 degrees QTc Int : 459 ms Poor data quality, interpretation may be adversely affected Sinus rhythm with Premature atrial complexes Otherwise normal ECG When compared with ECG of 28-JUL-2022 15:08, No significant change was found Confirmed by Candido Zamarripa ([id number]) on 08/14/2022 4:53:48 PM Referred By: REFERRED SELF Confirmed By:Candido Zamarripa
[2022-08-14] MEDS: CHOLESTYRAMINE LIGHT 4 GM PKT PO SCH (21:52)
[2022-08-14] MEDS: hydrOXYzine HCl 25 MG TAB PO SCH (21:56)
[2022-08-15] MEDS: HEPARIN 100 UNIT/ML 5ML FLUSH FLUSH PRN (01:48)
[2022-08-15] MEDS: LOPERAMIDE HCL 2 MG CAP PO SCH ×2 (03:36→10:02)
[2022-08-15] MEDS: TAMSULOSIN HCL 0.4 MG CAP PO SCH ×2 (08:40→22:14)
[2022-08-15] MEDS: ENOXAPARIN INJ 30 MG/0.3 ML SYR SQ SCH (08:40)
[2022-08-15] MEDS: GABAPENTIN 600 MG TAB PO SCH (08:40)
[2022-08-15] MEDS: SERTRALINE HCL 100 MG TABLET PO SCH (08:41)
[2022-08-15] MEDS: FAMOTIDINE 20 MG TAB PO SCH (08:41)
[2022-08-15] MEDS: PANTOprazole 40 MG TAB PO SCH (08:41)
[2022-08-15] MEDS: MoRPHine SULFATE CR 15 MG TABCR PO SCH (08:44)
--- NOTE | 2022-08-15 08:59 | Hospitalist Progress Note ---
Date of Service August 15, 2022 Assessment & Plan (1) Weakness: Plan: 62yo male with adenocarcinoma of the rectum presenting with diffuse generalized weakness. Patient is concerned that he is unable to care for himself at this time. He has family close by that help to care for him but felt may need some additional help at home/frequent falls at home over past couple of months due to weakness/poor PO intake/diarrhea (likely from radiation) and 60lb weight loss o tejas past couple of months awaiting follow up with Dr Herndon/urology for correction of colovesicular fistula without appointment yet as recommended by Dr Cantor as had only been able to tolerate 5/8 chemo treatments due to tolerance and to proceed with surgery Given IVF, improved. No further syncope reported Pre albumin 12.8 -- poor nutirional status 2nd to chronic diarrhea. Goes right though him immediately, DESPITE 100mg Oxycontin BID and diluadid up to 8mg PO as needed for taking the edge off. Suspect poor absorption/severe diarrhea/decreased transit time Scheduled imodium (prior stool testing negative) -- improvement Asked CM to look into pre-auth for fentanyl patch for transdermal absorption. -- can limit PO if effective. -- decreased gabapentin to 300mg HS (reported taking less at home/no longer recently) --Started at 12mcg, no prior auth needed per CM check. <40$ a month Arranged for f/u on September 26 at [place] for repair of colovesicular fistula. Per Dr Cantor, 5/8 cycles chemo completed but no further due to tolerance and rec'd to proceed w/ surgery Discussed w/ Dr Cantor and Dr Herndon on 08/14 after discussions with pharmacist given 60lb weight loss regarding starting TPN -- Dr Herndon happy to have it started to optimize nutrition prior to surgery. Risks discussed with patient Starting TPN this afternoon, CM following to arrange continued nutrition at d/c (2) Rectal cancer: Plan: As above. Patient is to have surgical repair of colovesicular fistula at [facility] in the future - no date set as of yet per patient yesterday. He was distraught by this and about feeling he wouldn't make it several more weeks without nutrition and pass away Home meds for pain actually 100mg OxyContin BID, hydromorphone 8mg Q3H -- will continue the 60mg BID inpatient but change to prn to ensure not over sedating Pain control as outlined, starting fentanyl patch, 12mcg given BMI 20 -- decrease PO as able hoping for better baseline control -- to alert if feeling off at all to nursing arranged appt for Sep 26 for patient, communicated with his specialists as above (3) Depression: Plan: Chronic Continue Sertraline 100mg po daily Mood stable today, thankful for assistance in follow up with appointments and listening to him, arranging for nutrition. He was actually up making his bed today, improved spirits Plan continued inapatient stay starting TPN today -- CM assisting to arrange at f/u start fentanyl patch 12mcg -- monitor/back off prns if effective -- changed Oxycontin to PRN to avoid oversedation in meantime but didn't want to completely stop. Gabapentin reduced to 300mg HS per patient request. He was not really taking much of this on admit at home he says -- was ordered 600mg BID Admission and Anticipated Discharge Date Admission Date: August 14, 2022 Supervising Physician Co-Signing Physician Notes Attending Attestation - Chart reviewed, care plan d/w BILL Max. I agree w/ the lazaro components of her documentation. Kenny Craft MD Subjective Patient evaluated this morning, up and making his bed Had been up to 100mg BID of Oxycontin and taking 8mg at night with such at times to take edge off but hadn't really worked had been offered fentanyl recently in past but declined but discussed GI/absorption and effectiveness and agreeable to start and monitor fentanyl at 12.5mcg and CM working on getting. Pharmacy working on getting TPN arranged/sent up, waiting for labs this morning. Gabapentin hadn't been taking much at home but want to take 300mg at night. No further diarrhea since yesterday, continues on scheduled Imodium but will make back to prn while starting fentanyl to prevent constipation issues. No fever/chills, no further lightheaded/dizziness, no chest pain/shortness of breath. CM working on arranging continued TPN at discharge. Review of Systems Review of Systems: All systems reviewed & are unremarkable except as noted in HPI & below Physical Exam Physical Exam: General: cachectic male, making his bed, NAD, alert/oriented x 3, cooperative HEENT: mmm/slightly dry (improved from prior), trachea midline, no JVD Chest: post to R chest, covered Resp: CTAB, no w/c/r, on room air 99% CV: RRR, no m/r/g, pitting edema/calf tenderness GI: +BS, scaphoid abdomen, suprapubic fullness but no abdominal tenderness MSK/Neuro: frail, muscle wasting/atrophy, no focal deficits/slurred speech Psych: AOx3, pleasant, cooperative, less tearful, thankful for help reported Results & Data Results & Data ([facility]) Vital Signs (Past 12 Hours) Vital Signs Temp Pulse Resp BP Pulse Ox O2 Del Method 08/15/22 08:47 Room Air 08/15/22 07:10 36.8 C 79 16 147/86 H 96 Room Air Laboratory Results 08/15/22 08/15/22 Range/Units 09:47 09:47 WBC 2.86 L (4.8-10.8) K/ul RBC 3.28 L (4.63-6.08) M/uL Hgb 9.7 L (14.0-18.0) g/dl Hct 30.2 L (40.1-51.0) % MCV 92.1 (80.0-100.0) fL MCH 29.6 (25.0-34.0) pg MCHC 32.1 (32.0-36.0) g/dL RDW Std Deviation 61.0 H (36.4-46.3) fL RDW Coeff of Raul 17.9 H (11.5-14.5) % Plt Count 204 (130-400) K/uL MPV 9.8 (9.4-12.4) fL Sodium 139 (136-145) mmol/L Potassium 3.8 (3.5-5.1) mmol/L Chloride 106 (98-107) mmol/L Carbon Dioxide 29 (21-32) mmol/L Anion Gap 4 (3-11) BUN 12 (6-23) mg/dl Creatinine 0.67 (0.6-1.4) mg/dl Est Cr Clr Drug Dosing 99.3 ml/min Est GFR ( Amer) 117.7 ml/min Est GFR (Non-Af Amer) 101.5 ml/min BUN/Creatinine Ratio 17.9 (10-20) Glucose 95 (70-99(Fasting)) mg/dl Calcium 7.9 L (8.5-10.1) mg/dl Phosphorus 3.1 (2.5-4.9) mg/dl Magnesium 1.8 (1.7-2.4) mg/dl Prealbumin 12.8 L (20-40) mg/dl Triglycerides 197 H (0-150) mg/dl PG Care Time/CCT Total # of Minutes Spent Total Time Spent with Patient: Total time spent is greater than 50% in coordination of care (as documented) at patient's floor/unit and/or counseling patient: Coding Level of Care Code 00741 Subseq Hosp Care Lvl 3 Diagnoses Weakness R53.1 Rectal cancer C20 Depression F32.9
[2022-08-15] MEDS: CHOLESTYRAMINE LIGHT 4 GM PKT PO SCH ×2 (10:02→22:12)
[2022-08-15 10:19] LABS: Hematocrit (blood only) 30.2 % (40.1-51.0); Hemoglobin 9.7 g/dl (14.0-18.0); Mean Corpuscular Hemoglobin 29.6 pg (25.0-34.0); Mean Corpuscular Hgb Conc 32.1 g/dL (32.0-36.0); Mean Corpuscular Volume 92.1 fL (80.0-100.0); Mean Platelet Volume 9.8 fL (9.4-12.4); Platelet Count 204 K/uL (130-400); RDW Coefficient of Variation 17.9 % (11.5-14.5); Red Blood Count 3.28 M/uL (4.63-6.08); White Blood Count 2.86 K/ul (4.8-10.8)
[2022-08-15] MEDS ORDERED: LOPERAMIDE HCL 2 MG CAP PO PRN (10:37)
[2022-08-15 10:54] LABS: BUN Creatinine Ratio 17.9 (10-20); Calcium 7.9 mg/dl (8.5-10.1); Creatinine Clr Calc Pharmacy 99.3 ml/min; Est GFR (African American) 117.7 ml/min; Est GFR (Non-African American) 101.5 ml/min; Magnesium 1.8 mg/dl (1.7-2.4); Phosphorus 3.1 mg/dl (2.5-4.9); Potassium 3.8 mmol/L (3.5-5.1)
[2022-08-15] MEDS: fentaNYL 12 MCG/HR TDSY TD SCH (11:31)
[2022-08-15] MEDS ORDERED: DEXTROSE 10% 1,000 ML IV PRN (11:36)
[2022-08-15 13:33] LABS: Prealbumin 12.8 mg/dl (20-40)
[2022-08-15] MEDS: CHECK fentaNYL PATCH PLACEMENT SCH (15:21)
[2022-08-15] MEDS ORDERED: AMINO ACID 8% IV SCH (16:00)
[2022-08-15] MEDS ORDERED: [UNRECOGNIZED DRUG - OTHER] IV SCH (16:00)
[2022-08-15] MEDS ORDERED: CENTRAL TPN IV SCH (16:00)
[2022-08-15] MEDS ORDERED: CLINOLIPID 20% IV FAT EMULSION 125 ML IV SCH (16:00)
[2022-08-15 21:19] LABS: Basophils # (auto) 0.03 K/uL (0-0.2); Basophils % (auto) 1.1 %; Eosinophils % (auto) 3.5 %; Immature Granulocytes # (auto) 0.01 K/uL (0.00-0.02); Immature Granulocytes % (auto) 0.4 %; Lymphocytes # (auto) 0.37 K/uL (1.2-3.4); Monocytes % (auto) 10.5 %; Neutrophils # (auto) 2.04 K/uL (1.4-6.5); Neutrophils % (auto) 71.5 %
[2022-08-15] MEDS ORDERED: STOP CLINOLIPID ONE (22:00)
[2022-08-15] MEDS: GABAPENTIN 300 MG CAP PO SCH (22:13)
[2022-08-15] MEDS: hydrOXYzine HCl 25 MG TAB PO SCH (22:14)
[2022-08-16] MEDS: CHECK fentaNYL PATCH PLACEMENT SCH ×3 (00:39→16:01)
[2022-08-16] MEDS: ENOXAPARIN INJ 30 MG/0.3 ML SYR SQ SCH ×2 (08:09→08:13)
[2022-08-16] MEDS: PANTOprazole 40 MG TAB PO SCH (08:10)
[2022-08-16] MEDS: SERTRALINE HCL 100 MG TABLET PO SCH (08:10)
[2022-08-16] MEDS: TAMSULOSIN HCL 0.4 MG CAP PO SCH ×2 (08:10→21:49)
[2022-08-16] MEDS: FAMOTIDINE 20 MG TAB PO SCH (08:10)
--- NOTE | 2022-08-16 08:34 | Hospitalist Progress Note ---
Date of Service August 16, 2022 Assessment & Plan (1) Weakness: Plan: 62yo male with adenocarcinoma of the rectum presenting with diffuse generalized weakness. Patient is concerned that he is unable to care for himself at this time. He has family close by that help to care for him but felt may need some additional help at home/frequent falls at home over past couple of months due to weakness/poor PO intake/diarrhea (likely from radiation) and 60lb weight loss o tejas past couple of months awaiting follow up with Dr Herndon/urology for correction of colovesicular fistula without appointment yet as recommended by Dr Cantor as had only been able to tolerate 5/8 chemo treatments due to tolerance and to proceed with surgery No further syncope after hydration Pre albumin 12.8 -- poor nutritional status 2nd to chronic diarrhea. Goes right though him immediately, DESPITE 100mg Oxycontin BID and diluadid up to 8mg PO as needed for taking the edge off. Suspect poor absorption/severe diarrhea/decreased transit time Scheduled imodium (prior stool testing negative) -- improvement Initiated on fentanyl for pain control with good improvement in oncologically related pain -- decreased gabapentin to 300mg HS (reported taking less at home/no longer recently) --Started at 12mcg, no prior auth needed per CM check. <40$ a month Arranged for f/u on September 26 at [facility] for repair of colovesicular fistula. Per Dr Cantor, 5/8 cycles chemo completed but no further due to tolerance and rec'd to proceed w/ surgery Discussed w/ Dr Cantor and Dr Herndon on 08/14 after discussions with pharmacist given 60lb weight loss regarding starting TPN -- Dr Herndon happy to have it started to optimize nutrition prior to surgery. Risks discussed with patient Starting TPN 08/16/2022, CM following to arrange continued nutrition at d/c (2) Rectal cancer: Plan: As above. Patient is to have surgical repair of colovesicular fistula at [facility] in the future - no date set as of yet per patient yesterday. He was distraught by this and about feeling he wouldn't make it several more weeks without nutrition and pass away Home meds for pain actually 100mg OxyContin BID, hydromorphone 8mg Q3H -- will continue the 60mg BID inpatient but change to prn to ensure not over sedating Pain control as outlined, starting fentanyl patch, 12mcg given BMI 20 -- decrease PO as able hoping for better baseline control -- to alert if feeling off at all to nursing arranged appt for Sep 26 for patient, communicated with his specialists as above (3) Depression: Plan: Chronic Continue Sertraline 100mg po daily Mood stable today, thankful for assistance in follow up with appointments and listening to him, arranging for nutrition. He continues to show improvement when his nutrition is improved Plan continued inapatient stay overall patient plans on going home to support of his sisters will need to determine who is going to follow-up with his TPN. Also will be helpful to see if his fentanyl patch would need to be adjusted. start fentanyl patch 12mcg -- monitor/back off prns if effective -- changed Oxycontin to PRN to avoid oversedation in meantime but didn't want to completely stop. Gabapentin reduced to 300mg HS per patient request. He was not really taking much of this on admit at home he says -- was ordered 600mg BID Admission and Anticipated Discharge Date Admission Date: August 14, 2022 Subjective Patient is doing well he is tolerating both his TPN and fentanyl patches without much issue. The patient states his pain feels better although the fentanyl patches have been on been on Sunday. The TPN has not created any shortness of breath or discomfort at the infusion site. Review of Systems Review of Systems: Mild distress and fatigue extreme weakness no headache, no visual changes no speech or swallowing issues no chest pain, pressure or palpitations no shortness of breath, cough or wheezes Per since then intermittent abdominal pain crampy in nature crescendo decrescendo no dysuria, hematuria or frequency no focal joint pain or swelling no back pain, CVA tenderness or radicular pain no bruising, bleeding or rashes no focal signs of weakness or numbness or altered sensation no complaints of anxiety or depression.. Physical Exam Physical Exam: The patient appeared well nourished and normally developed. Vital signs as documented. Head exam is normocephalic atraumatic Neck is without JVD, thyromegaly, or carotid bruits. Lungs are clear to auscultation, no focal loss of breath sounds Cardiac exam, Rhythm is regular.. No murmurs, rubs or gallops. Abdominal exam reveals normal to hyperactive bowel sounds, soft Patient is tender to deep palpation no specific masses are seen Extremities are nonedematous and both pedal pulses are present Neurologic exam is alert and oriented, no focal loss of strength or sensation Skin is without bruises or rashes Results & Data Results & Data ([facility]) Vital Signs (Past 12 Hours) Vital Signs Temp Pulse Resp BP Pulse Ox O2 Del Method 08/16/22 07:19 98.6 F 79 16 128/73 97 Room Air PG Care Time/CCT Total # of Minutes Spent Total Time Spent with Patient: Total time spent is greater than 50% in coordination of care (as documented) at patient's floor/unit and/or counseling patient: Coding Level of Care Code 05336 Subseq Hosp Care Lvl 3 Diagnoses Weakness R53.1 Rectal cancer C20 Depression F32.9
[2022-08-16 10:13] LABS: BUN Creatinine Ratio 24.6 (10-20); Calcium 7.9 mg/dl (8.5-10.1); Creatinine Clr Calc Pharmacy 113.5 ml/min; Est GFR (African American) 122.3 ml/min; Est GFR (Non-African American) 105.5 ml/min; Magnesium 1.9 mg/dl (1.7-2.4); Potassium 3.7 mmol/L (3.5-5.1)
[2022-08-16] MEDS: CHOLESTYRAMINE LIGHT 4 GM PKT PO SCH ×2 (11:10→21:47)
[2022-08-16] MEDS ORDERED: CLINOLIPID 20% IV FAT EMULSION 125 ML IV SCH (16:00)
[2022-08-16] MEDS ORDERED: [UNRECOGNIZED DRUG - OTHER] IV SCH (16:00)
[2022-08-16] MEDS ORDERED: CENTRAL TPN IV SCH (16:00)
[2022-08-16] MEDS ORDERED: AMINO ACID 8% IV SCH (16:00)
[2022-08-16] MEDS: HYDROmorphone HCL 2 MG TAB PO PRN (21:46)
[2022-08-16] MEDS: GABAPENTIN 300 MG CAP PO SCH (21:48)
[2022-08-16] MEDS: hydrOXYzine HCl 25 MG TAB PO SCH (21:49)
[2022-08-16] MEDS ORDERED: STOP CLINOLIPID ONE (22:00)
[2022-08-17] MEDS: CHECK fentaNYL PATCH PLACEMENT SCH ×4 (00:14→23:18)
[2022-08-17] MEDS: HYDROmorphone HCL 2 MG TAB PO PRN ×2 (07:33→22:43)
[2022-08-17] MEDS: ENOXAPARIN INJ 30 MG/0.3 ML SYR SQ SCH (09:05)
[2022-08-17] MEDS: FAMOTIDINE 20 MG TAB PO SCH (09:06)
[2022-08-17] MEDS: TAMSULOSIN HCL 0.4 MG CAP PO SCH ×2 (09:06→22:47)
[2022-08-17] MEDS: SERTRALINE HCL 100 MG TABLET PO SCH (09:06)
[2022-08-17] MEDS: PANTOprazole 40 MG TAB PO SCH (09:06)
[2022-08-17 09:07] LABS: BUN Creatinine Ratio 42.9 (10-20); Calcium 7.8 mg/dl (8.5-10.1); Creatinine Clr Calc Pharmacy 141.3 ml/min; Est GFR (African American) 133.8 ml/min; Est GFR (Non-African American) 115.5 ml/min; Magnesium 1.8 mg/dl (1.7-2.4); Phosphorus 2.5 mg/dl (2.5-4.9); Potassium 3.6 mmol/L (3.5-5.1)
[2022-08-17] MEDS: MoRPHine SULFATE CR 15 MG TABCR PO PRN (09:17)
[2022-08-17] MEDS: CHOLESTYRAMINE LIGHT 4 GM PKT PO SCH (09:23)
[2022-08-17 12:09] LABS: Ferritin 66.7 ng/ml (8-388)
[2022-08-17] MEDS ORDERED: CENTRAL TPN IV SCH (16:00)
[2022-08-17] MEDS ORDERED: AMINO ACID 8% IV SCH (16:00)
[2022-08-17] MEDS ORDERED: CLINOLIPID 20% IV FAT EMULSION 250 ML IV SCH (16:00)
[2022-08-17] MEDS ORDERED: [UNRECOGNIZED DRUG - OTHER] IV SCH (16:00)
[2022-08-17] MEDS ORDERED: OXYBUTYNIN CHLORIDE 5 MG TAB PO STA (19:09)
[2022-08-17] MEDS ORDERED: traZODone HCL 50 MG TAB PO SCH (21:00)
[2022-08-17] MEDS ORDERED: STOP CLINOLIPID ONE (22:00)
[2022-08-17] MEDS: GABAPENTIN 300 MG CAP PO SCH (22:46)
--- NOTE | 2022-08-18 00:04 | Hospitalist Progress Note ---
Date of Service August 17, 2022 Assessment & Plan (1) Rectal cancer: Plan: severe rectal pain, bladder pain, perineal pain ?sigmoid diverticulitis as seen on CT a/p at admission urinary inflammation from colo-vesicular fistula? prostatitis due to prostate being adjacent to the rectal ca? combination of factors? 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 linked with [facility] and [facility] needs diverting colostomy and urostomy (4) Hyponatremia: Plan: mild repeat BMP am if persistent - serum osm, urine osm, urine Na (5) Severe protein-calorie malnutrition: Plan: 50+ pounds of weight loss since rectal ca dx TPN (6) Anemia: Plan: mild Fe def consider IV venofer b12/folate wnl likely component of anemia of chronic disease as well (7) DVT prophylaxis: Plan: lovenox (8) Urge incontinence: Plan: severe constant urgency, frequency, nocturia trial of oxybutinin immediate release if effective change to extended release (9) Insomnia: Plan: stop atarax this isn't helping and will make constipation worse trial of trazodone 25mg HS (10) Constipation: Plan: 2nd opiates, rectal ca, etc stop the questran BID Admission and Anticipated Discharge Date Admission Date: August 14, 2022 Subjective patient resting in bed during the visit he has several complaints - 1. ongoing severe rectal pain and perineal pain; previously was taking Morphine ER 100mg BID - prescribed by Dr Cantor's office. Fentanyl patch is not controlling his pain. He is using PO hydromorphone prn for breakthrough. 2. severe urgency of urination and frequency. 3. passage of air via his penis, and passage of urine via his rectum. 4. constipation - had firm stool with straining today. 5. urinary frequency when his TPN is running. 6. poor sleep, insomnia - attributed to constant urination. Review of Systems Review of Systems: gen - no fever; weakness but able to ambulate; copious weight loss since his cancer dx cv - no cp, no orthopnea pulm - no dyspnea GI - no frontal abd pain but does have suprapubic pain; no vomiting; no blood per rectum psych - anxiety, insomnia Physical Exam Physical Exam: gen - thin, NAD, laying in bed, pleasant mouth - MMM neck - no JVD heart - RRR, s1 s2, no murmur lungs - CTA b/l abd - soft, tender suprapubic region, BS+, rectal deferred, no HSM ext - no edema, pulses 2+ b/l psych - a/o x 3 Results & Data Results & Data ([facility]) Vital Signs (Past 12 Hours) Vital Signs Temp Pulse Resp BP Pulse Ox O2 Del Method 08/17/22 21:43 37.2 C 96 H 18 136/70 98 Room Air 08/17/22 15:22 37.0 C 78 16 145/80 H 98 Room Air Laboratory Results Laboratory Results - last 24 hr 08/17/22 08/17/22 08/17/22 00:05 07:43 11:14 Sodium 133 L Potassium 3.6 Chloride 106 Carbon Dioxide 24 Anion Gap 3 BUN 21 Creatinine 0.49 L Est Cr Clr Drug Dosing 141.3 Est GFR ( Amer) 133.8 Est GFR (Non-Af Amer) 115.5 BUN/Creatinine Ratio 42.9 H Glucose 102 H POC Glucose 124 H Calcium 7.8 L Phosphorus 2.5 Magnesium 1.8 Iron TIBC Unsaturated IBC Transferrin % Sat Ferritin Vitamin B12 322 Folate 14.52 TSH 08/17/22 08/17/22 11:14 11:15 Sodium Potassium Chloride Carbon Dioxide Anion Gap BUN Creatinine Est Cr Clr Drug Dosing Est GFR ( Amer) Est GFR (Non-Af Amer) BUN/Creatinine Ratio Glucose POC Glucose Calcium Phosphorus Magnesium Iron 33 L TIBC 219 L Unsaturated IBC 186 Transferrin % Sat 15 L Ferritin 66.7 Vitamin B12 Folate TSH 3.093 PG Care Time/CCT Total # of Minutes Spent Total Time Spent with Patient: Total time spent is greater than 50% in coordination of care (as documented) at patient's floor/unit and/or counseling patient: Coding Level of Care Code 54201 Subseq Hosp Care Lvl 3 Diagnoses Rectal cancer C20 Weakness R53.1 Colonic fistula K63.2 Hyponatremia E87.1 Severe protein-calorie malnutrition E43 Anemia D64.9 DVT prophylaxis Z29.9 Urge incontinence N39.41 Insomnia G47.00 Constipation K59.00
[2022-08-18 07:38] LABS: BUN Creatinine Ratio 57.8 (10-20); C Reactive Protein 0.72 mg/dl (0-0.5); Calcium 7.6 mg/dl (8.5-10.1); Creatinine Clr Calc Pharmacy 155.8 ml/min; Est GFR (African American) 138.6 ml/min; Est GFR (Non-African American) 119.6 ml/min; Magnesium 1.8 mg/dl (1.7-2.4); Phosphorus 2.3 mg/dl (2.5-4.9); Potassium 3.6 mmol/L (3.5-5.1)
[2022-08-18] MEDS: CHECK fentaNYL PATCH PLACEMENT SCH (08:13)
[2022-08-18] MEDS: FAMOTIDINE 20 MG TAB PO SCH (08:14)
[2022-08-18] MEDS: SERTRALINE HCL 100 MG TABLET PO SCH (08:14)
[2022-08-18] MEDS: TAMSULOSIN HCL 0.4 MG CAP PO SCH ×2 (08:14→21:26)
[2022-08-18] MEDS: PANTOprazole 40 MG TAB PO SCH (08:14)
[2022-08-18] MEDS: ENOXAPARIN INJ 30 MG/0.3 ML SYR SQ SCH (08:19)
[2022-08-18] MEDS: MoRPHine SULFATE CR 15 MG TABCR PO PRN (08:25)
[2022-08-18] MEDS: fentaNYL 12 MCG/HR TDSY TD SCH (11:40)
--- NOTE | 2022-08-18 13:56 | Pharmacy Report ---
PHA: Parenteral Nutrition Con - Date of Service August 18, 2022 - Scope Pharmacy was consulted on 08/15/22 to manage parenteral nutrition orders for this patient. - Subjective The patient is currently on day 4 of central parenteral nutrition for colorectal cancer, weight loss. 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 - Assessment Patient's TPN calories were increased to goal yesterday (08/17) per dietary recommendations on 08/14/22. He received 2091 kcals/day yesterday and continued this today. Spoke to santo [place] today and he recommended a reduced goal of around 1550 kcal/day with less protein. Plan on changing the TPN tomorrow based on updated recommendations. - Plan For day 4 of PN administration, the following will be ordered: Macronutrients Amino acids 160 grams/day Dextrose 280 grams/day Lipids 50 grams/day Micronutrients Combined electrolytes [] mL - contains 35 mEq Na, 20 meq K, 4.5 mEq Ca, 5 mEq Mg, 35 mEq Cl, 29.5 mEq acetate per 20 mL Sodium phosphate 30 MMol Sodium chloride 40 mEq Sodium acetate 60 mEq Potassium phosphate 18 mMol Potassium chloride 40 mEq Potassium acetate [] mEq Magnesium sulfate 16.24 mEq Calcium gluconate 9.3 mEq Multivitamins 10 mL Trace Elements 1 mL Additional additives: Total volume 2117.2 mL to be infused over 24hrs will provide 2091 kcal/day Labs, as indicated, will be ordered per protocol Pharmacy will continue to follow and adjust parenteral nutrition orders on a daily basis. Thank you for allowing us to participate in the care of this patient.
--- NOTE | 2022-08-18 14:50 | Palliative Care Consultation ---
Date of Consultation August 18, 2022 Assessment & Plan (1) Rectal pain: By history, this appears to have both a neuropathic and spasmodic component. We discussed use of adjuvant medications specifically for these components to augment the effects of the opioids. From a neuropathic standpoint, he is agreeable to increasing the dose of gabapentin. We will dose it BID in the morning and afternoon as he has had problems sleeping with gabapentin in the past. For the spasmodic component, will add glycopyrrolate orally TID. Unfortunately, this may contribute to risk of constipation. He is reluctant to use laxatives with prior history of diarrhea but also has increased pain with straining for BMs. Will use colace routinely and reserve laxatives for prn use. He is drinking a lot of fluids. As his weight and BMI, decline, reliable absorption of fentanyl can also be a problem. Will go back to morphine ER and monitor with adjuvant medications. This can be adjusted for tolerance if needed. Discussed with Dr. Craft (2) Constipation: Add colace as above. (3) Palliative care encounter: This has been a difficult and frustrating experience for him. He is very much looking forward to the surgery which would allow him to feel more normal. He has good support and is grateful for the care that he's receiving. History of Present Illness Reason for Consultation: pain management Requesting Physician: Dr. Craft Attending Physician: Kenny Craft History of Present Illness 62 yo gentleman diagnosed with rectal cancer in December of this year. He was started on chemoradiation therapy but did not complete full cycle due to side effects. He has had severe diarrhea, anorexia and weight loss. He unfortunately also developed a colovesical fistula and has had problems with severe pain, particularly with straining for bowel movements. He also has pain with urination and is passing gas through his penis. He has been seen by colorectal surgery at [facility] and is planning to have diverting colostomy and urostomy in the near future. He complains of severe stabbing pain in his rectum, particularly with bowel movements. He has not recently been having diarrhea. He also has spasmodic pain in both his bladder and rectum. He has been on morphine ER with prn hydromorphone but felt like he had developed a tolerance to the morphine ER. During his hospitalization, this was stopped and he was started on a 12mcg fentanyl patch 2 days ago. He also takes gabapentin chronically for sciatica and had been on higher doses, but is currently only taking 300mg at bedtime. He reports that he cut the dose back because he was having difficulty sleeping with the gabapentin. Allergies Allergy/AdvReac Type Severity Reaction Status Date / Time shellfish derived Allergy Severe ANAPHYLACTI Verified 07/28/22 19:13 C amoxicillin Allergy Intermediate HIVES Verified 07/28/22 19:13 blue dye Allergy Intermediate HIVES, Verified 07/28/22 19:13 BLISTERS doxycycline Allergy Intermediate HIVES Verified 07/28/22 19:13 Fish Containing Products Allergy Intermediate HIVES, Verified 07/28/22 19:13 FEVER lisinopril Allergy Intermediate HIVES Verified 07/28/22 19:13 oseltamivir Allergy Intermediate HIVES, Verified 07/28/22 19:13 BLISTERS tetanus toxoid, adsorbed Allergy Intermediate FEVER Verified 07/28/22 19:13 Home Medications Medication Instructions Recorded Confirmed Type gabapentin 600 mg tablet 600 mg PO BID 12/14/21 07/28/22 History hydroxyzine HCl 25 mg tablet 25 - 50 mg PO HS 12/14/21 07/28/22 History pantoprazole 40 mg tablet,delayed 40 mg PO QAM 12/14/21 07/28/22 History release multivitamin 1 tab PO DAILY 02/08/22 07/28/22 History famotidine 20 mg tablet 20 mg PO DAILY 07/09/22 07/28/22 History hydromorphone 8 mg tablet 8 mg PO Q3H PRN Pain 07/09/22 07/28/22 History lidocaine-prilocaine 2.5 %-2.5 % 1 applic topical DIRECTED PRN 07/09/22 07/28/22 History topical cream PORT ACCESS sertraline 100 mg tablet 100 mg PO DAILY 07/09/22 07/28/22 History Diltiazem 1 applic topical TID 07/21/22 07/28/22 History diphenoxylate-atropine 2.5 1 tab PO Q6H PRN Diarrhea 07/21/22 07/28/22 History mg-0.025 mg tablet loperamide 2 mg capsule 2 mg PO Q6H PRN Diarrhea 07/21/22 07/28/22 History (Anti-Diarrheal (loperamide)) morphine 60 mg tablet,extended 60 mg PO Q12H 07/21/22 07/28/22 History release (MS Contin) tamsulosin 0.4 mg capsule 0.4 mg PO BID 07/21/22 07/28/22 History ciprofloxacin HCl 500 mg tablet 500 mg PO BID #20 tabs 07/30/22 Rx (Cipro) metronidazole 500 mg tablet 500 mg PO TID #30 tabs 07/30/22 Rx Patient History Medical History Adenocarcinoma of rectum (12/14/21) Depression with history of prior SI Hypertension Perirectal abscess Rectal cancer Rhabdomyolysis Sepsis Surgical History History of colonoscopy (01/02/22) Dr. Donna Huynh at [facility] History of hernia surgery (2017) History of incision and drainage (12/14/21) Perirectal Abscess - Right Dr. Silvano Cui History of mandibular surgery (as a teenager) Family History Father Lung cancer Mother Lung cancer Son Colorectal cancer Son No problems noted. Sister No problems noted. Sister No problems noted. 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 How many Children do You have: 0 Feels Safe at Home: Yes Safety Concerns: Feels Safe At This Time Childhood Exposure to Second-Hand Smoke: Yes Diet Comment: admits to eating 1 meal per day to limit bowel movements during the past year weight has: decreased > 10 lbs Dental Care, Regularly: No Assistive Devices: Cane Assistive Devices Comment: glasses not here with patient Review of Systems Review of Systems: ESAS Pain 3/3 Dyspnea 0/3 Anxiety 1/3 Nausea 0/3 Drowsiness 0/3 PPS 50% Physical Exam Constitutional: + thin; no acute distress Respiratory: normal respiratory effort; no labored breathing Cardiovascular: Extremities: no edema Musculoskeletal: Extremities: + muscle atrophy Skin: warm and dry Neurologic: Speech / Cognition: normal cognition Results & Data ([facility]) Vital Signs (Past 12 Hours) Vital Signs Temp Pulse Resp BP Pulse Ox O2 Del Method 08/18/22 07:26 97.9 F 82 16 128/71 99 Room Air PG Care Time/CCT Total # of Minutes Spent Total Time Spent: 57 Total Time Spent with Patient: Total time spent is greater than 50% in coordination of care (as documented) at patient's floor/unit and/or counseling patient: symptom management. Coding Level of Care Code 02389 Initial Inpt Care Lvl 2 Diagnoses Rectal pain K62.89 Constipation K59.00 Palliative care encounter Z51.5
[2022-08-18] MEDS: GABAPENTIN 300 MG CAP PO SCH (15:30)
[2022-08-18] MEDS ORDERED: [UNRECOGNIZED DRUG - OTHER] IV SCH (16:00)
[2022-08-18] MEDS ORDERED: CLINOLIPID 20% IV FAT EMULSION 250 ML IV SCH (16:00)
[2022-08-18] MEDS ORDERED: AMINO ACID 8% IV SCH (16:00)
[2022-08-18] MEDS ORDERED: CENTRAL TPN IV SCH (16:00)
[2022-08-18] MEDS ORDERED: MoRPHine SULFATE CR 60 MG TABCR PO SCH (21:00)
--- NOTE | 2022-08-18 21:03 | Hospitalist Progress Note ---
Date of Service August 18, 2022 Assessment & Plan (1) Rectal cancer: Plan: severe rectal pain, bladder pain, perineal pain most of his pain is from the rectal ca itself cannot rule out ?sigmoid diverticulitis as seen on CT a/p at admission urinary inflammation from colo-vesicular fistula? 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 linked with [facility] and [facility] needs diverting colostomy and urostomy (4) Hyponatremia: Plan: mild but improved (5) Severe protein-calorie malnutrition: Plan: 50+ pounds of weight loss since rectal ca dx TPN initiated this week, but patient states it causes him to void all night at his request will stop the TPN tonight at 9pm; keep off until 6am tomorrow; then finish that bag and will not renew will inform pharmacy in am about no further TPN he is eating/drinking by mouth if trazodone not helpful consider remeron (6) Anemia: Plan: mild Fe def consider IV venofer b12/folate wnl likely component of anemia of chronic disease as well (7) DVT prophylaxis: Plan: lovenox (8) Urge incontinence: Plan: severe constant urgency, frequency, nocturia trial of oxybutinin immediate release yesterday not helpful but could try again if the urination issues persist (9) Insomnia: Plan: increase trazodone to 50mg HS (10) Constipation: Plan: 2nd opiates, rectal ca, etc stopped the questran BID needs bowel regimen Plan updated pt's son by phone this evening Admission and Anticipated Discharge Date Admission Date: August 14, 2022 Subjective patient still did not sleep last pm despite trazodone again was frustrated because he was up all night voiding/urinating due to TPN usage he asks that the TPN be discontinued he continues with severe rectal pain palliative care had seen him earlier in the day and made several medication changes continues with constipation Review of Systems Review of Systems: gen - very tired cv - no cp pulm - no dyspnea GI - lower GI/suprapubic pain still very prominent along with rectal pain Physical Exam Physical Exam: gen - thin, NAD, laying in bed, looks very tired mouth - MMM neck - no JVD heart - RRR, s1 s2, no murmur lungs - CTA b/l abd - soft, mildly tender suprapubic region, BS+ ext - no edema, pulses 2+ b/l psych - a/o x 3 Results & Data Results & Data ([facility]) Vital Signs (Past 12 Hours) Vital Signs Temp Pulse Resp BP Pulse Ox O2 Del Method 08/18/22 15:12 36.8 C 98 H 16 116/69 98 Room Air Laboratory Results Laboratory Results - last 24 hr 08/18/22 08/18/22 08/18/22 06:37 06:37 06:37 Sodium 135 L Potassium 3.6 Chloride 107 Carbon Dioxide 25 Anion Gap 3 BUN 26 H Creatinine 0.45 L Est Cr Clr Drug Dosing 155.8 Est GFR ( Amer) 138.6 Est GFR (Non-Af Amer) 119.6 BUN/Creatinine Ratio 57.8 H Glucose 83 Calcium 7.6 L Phosphorus 2.3 L Magnesium 1.8 C-Reactive Protein 0.72 H Cancelled Prostate Specific Ag 0.069 PG Care Time/CCT Total # of Minutes Spent Total Time Spent with Patient: Total time spent is greater than 50% in coordination of care (as documented) at patient's floor/unit and/or counseling patient: Coding Level of Care Code 53113 Subseq Hosp Care Lvl 2 Diagnoses Rectal cancer C20 Weakness R53.1 Colonic fistula K63.2 Hyponatremia E87.1 Severe protein-calorie malnutrition E43 Anemia D64.9 DVT prophylaxis Z29.9 Urge incontinence N39.41 Insomnia G47.00 Constipation K59.00
[2022-08-18] MEDS: DOCUSATE SODIUM 100 MG CAP PO SCH (21:25)
[2022-08-18] MEDS: MELATONIN 3 MG TAB PO SCH (21:25)
[2022-08-18] MEDS: GLYCOPYRROLATE 1 MG TAB PO SCH (21:25)
[2022-08-18] MEDS: traZODone HCL 50 MG TAB PO SCH (21:26)
[2022-08-18] MEDS: MoRPHine SULFATE CR 60 MG TABCR PO SCH (21:26)
[2022-08-18] MEDS: HEPARIN 100 UNIT/ML 5ML FLUSH FLUSH PRN (21:30)
[2022-08-18] MEDS: HYDROmorphone HCL 2 MG TAB PO PRN (21:36)
[2022-08-18] MEDS ORDERED: STOP CLINOLIPID ONE (22:00)
[2022-08-19] MEDS: HYDROmorphone HCL 2 MG TAB PO PRN ×2 (05:22→20:40)
[2022-08-19 07:02] LABS: BUN Creatinine Ratio 39.3 (10-20); Calcium 7.6 mg/dl (8.5-10.1); Creatinine Clr Calc Pharmacy 115.8 ml/min; Est GFR (African American) 122.3 ml/min; Est GFR (Non-African American) 105.5 ml/min; Phosphorus 2.9 mg/dl (2.5-4.9); Potassium 3.2 mmol/L (3.5-5.1)
[2022-08-19] MEDS: GLYCOPYRROLATE 1 MG TAB PO SCH ×3 (08:10→20:31)
[2022-08-19] MEDS: GABAPENTIN 300 MG CAP PO SCH ×2 (08:10→14:46)
[2022-08-19] MEDS: PANTOprazole 40 MG TAB PO SCH (08:10)
[2022-08-19] MEDS: FAMOTIDINE 20 MG TAB PO SCH (08:10)
[2022-08-19] MEDS: DOCUSATE SODIUM 100 MG CAP PO SCH ×2 (08:10→20:31)
[2022-08-19] MEDS: TAMSULOSIN HCL 0.4 MG CAP PO SCH ×2 (08:10→20:32)
[2022-08-19] MEDS: MoRPHine SULFATE CR 60 MG TABCR PO SCH ×2 (08:10→20:32)
[2022-08-19] MEDS: SERTRALINE HCL 100 MG TABLET PO SCH (08:10)
[2022-08-19] MEDS: ENOXAPARIN INJ 30 MG/0.3 ML SYR SQ SCH (08:11)
[2022-08-19] MEDS ORDERED: POTASSIUM CHLORIDE CRTAB 20 MEQ TABCR PO STA (11:25)
[2022-08-19] MEDS ORDERED: MoRPHine SULFATE CR 15 MG TABCR PO SCH (14:00)
[2022-08-19] MEDS: traZODone HCL 50 MG TAB PO SCH (20:32)
[2022-08-19] MEDS: MELATONIN 3 MG TAB PO SCH (20:32)
[2022-08-19] MEDS: POTASSIUM CHLORIDE CRTAB 20 MEQ TABCR PO SCH (20:32)
--- NOTE | 2022-08-19 21:06 | Hospitalist Progress Note ---
Date of Service August 19, 2022 Assessment & Plan (1) Rectal cancer: Plan: severe rectal pain, bladder pain, perineal pain most of his pain is from the rectal ca itself cannot rule out ?sigmoid diverticulitis as seen on CT a/p at admission but doubt as he is tolerating diet without increased abd pain, no fever, no LLQ pain, and normal wbc with minimal crp elevation urinary inflammation from colo-vesicular fistula? 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 linked with [facility] colorectal surgery and [facility] needs diverting colostomy and urostomy (4) Hyponatremia: Plan: resolved (5) Severe protein-calorie malnutrition: Plan: 50+ pounds of weight loss since rectal ca dx TPN initiated this week, but patient states it causes him to void all night at his request will stop the TPN he is eating/drinking by mouth robustly today if trazodone not helpful consider remeron but hold off for now (6) Anemia: Plan: mild Fe def consider IV venofer b12/folate wnl likely component of anemia of chronic disease as well (7) DVT prophylaxis: Plan: lovenox 30mg daily (8) Urge incontinence: Plan: severe constant urgency, frequency, nocturia trial of oxybutinin immediate release was not helpful (9) Insomnia: Plan: cont trazodone 50mg HS cont melatonin 3mg HS (10) Constipation: Plan: 2nd opiates, rectal ca, etc stopped the questran BID needs bowel regimen cont colace add senna (11) Depression: Plan: Chronic Continue Sertraline 100mg po daily Consider adding remeron if needed - defer for now Plan updated pt's son by phone yesterday evening Admission and Anticipated Discharge Date Admission Date: August 14, 2022 Subjective feels MUCH better today he slept 6 hours continuously & soundly woke up feeling refreshed pain in rectum is better needing PO dilaudid about 1-2x's/day suprapubic discomfort remains eating robustly; TPN now off ambulating to bathroom urinary frequency is better now that TPN is off he is pleased with improvement today Review of Systems Review of Systems: cv - no cp, no orthopnea pulm - no cough, dyspnea at rest, or COLÓN GI - no N/V; +severe constipation Physical Exam Physical Exam: gen - thin, NAD, laying in bed, looks great today! mouth - MMM neck - no JVD heart - RRR, s1 s2, no murmur lungs - CTA b/l abd - soft, NT, ND, BS+ ext - no edema, pulses 2+ b/l psych - a/o x 3 neuro - gait largely wnl (I watched him get OOB and walk to BR) Results & Data Results & Data ([facility]) Vital Signs (Past 12 Hours) Vital Signs Temp Pulse Resp BP Pulse Ox O2 Del Method 08/19/22 16:00 36.3 C L 90 20 105/66 100 Room Air Laboratory Results Laboratory Results - last 24 hr 08/19/22 06:19 Sodium 137 Potassium 3.2 L Chloride 110 H Carbon Dioxide 26 Anion Gap 1 L BUN 24 H Creatinine 0.61 Est Cr Clr Drug Dosing 115.8 Est GFR ( Amer) 122.3 Est GFR (Non-Af Amer) 105.5 BUN/Creatinine Ratio 39.3 H Glucose 99 Calcium 7.6 L Phosphorus 2.9 Magnesium 2.0 PG Care Time/CCT Total # of Minutes Spent Total Time Spent with Patient: Total time spent is greater than 50% in coordination of care (as documented) at patient's floor/unit and/or counseling patient: Coding Level of Care Code 01650 Subseq Hosp Care Lvl 2 Diagnoses Rectal cancer C20 Weakness R53.1 Colonic fistula K63.2 Hyponatremia E87.1 Severe protein-calorie malnutrition E43 Anemia D64.9 DVT prophylaxis Z29.9 Urge incontinence N39.41 Insomnia G47.00 Constipation K59.00 Depression F32.9
[2022-08-20 06:44] LABS: Calcium 7.7 mg/dl (8.5-10.1); Creatinine Clr Calc Pharmacy 130.8 ml/min; Est GFR (African American) 128.6 ml/min; Magnesium 1.8 mg/dl (1.7-2.4); Phosphorus 3.2 mg/dl (2.5-4.9); Potassium 4.2 mmol/L (3.5-5.1)
[2022-08-20] MEDS: MoRPHine SULFATE CR 60 MG TABCR PO SCH ×2 (09:48→21:14)
[2022-08-20] MEDS: DOCUSATE SODIUM 100 MG CAP PO SCH ×2 (09:48→21:14)
[2022-08-20] MEDS: GABAPENTIN 300 MG CAP PO SCH ×2 (09:49→13:34)
[2022-08-20] MEDS: FAMOTIDINE 20 MG TAB PO SCH (09:49)
[2022-08-20] MEDS: PANTOprazole 40 MG TAB PO SCH (09:50)
[2022-08-20] MEDS: POTASSIUM CHLORIDE CRTAB 20 MEQ TABCR PO SCH (09:50)
[2022-08-20] MEDS: GLYCOPYRROLATE 1 MG TAB PO SCH ×3 (09:50→21:14)
[2022-08-20] MEDS: TAMSULOSIN HCL 0.4 MG CAP PO SCH ×2 (09:51→21:14)
[2022-08-20] MEDS: SERTRALINE HCL 100 MG TABLET PO SCH (09:51)
[2022-08-20] MEDS: ENOXAPARIN INJ 30 MG/0.3 ML SYR SQ SCH (09:51)
[2022-08-20] MEDS: SENNA 8.6 MG TAB PO SCH (13:33)
[2022-08-20] MEDS: MELATONIN 3 MG TAB PO SCH (21:14)
[2022-08-20] MEDS: traZODone HCL 50 MG TAB PO SCH (21:14)
[2022-08-20] MEDS: HYDROmorphone HCL 2 MG TAB PO PRN (21:15)
--- NOTE | 2022-08-20 21:27 | Hospitalist Progress Note ---
Date of Service August 20, 2022 Assessment & Plan (1) Rectal cancer: Plan: severe rectal pain, bladder pain, perineal pain most of his pain is from the rectal ca itself cannot rule out ?sigmoid diverticulitis as seen on CT a/p at admission but doubt as he is tolerating diet without increased abd pain, no fever, no LLQ pain, and normal wbc with minimal crp elevation urinary inflammation from colo-vesicular fistula? 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 will d/w urology am (4) Hyponatremia: Plan: resolved (5) Severe protein-calorie malnutrition: Plan: 50+ pounds of weight loss since rectal ca dx TPN initiated this week, but patient stated it caused him to void all night at his request stopped the TPN he is eating/drinking by mouth robustly if trazodone becomes not helpful consider remeron but hold off for now as he is sleeping and eating/drinking well (6) Anemia: Plan: mild Fe def consider IV venofer b12/folate wnl likely component of anemia of chronic disease as well (7) DVT prophylaxis: Plan: stop lovenox 30mg daily start xarelto 10mg daily (8) Urge incontinence: Plan: severe constant urgency, frequency, nocturia trial of oxybutinin immediate release was not helpful (9) Insomnia: Plan: cont trazodone 50mg HS cont melatonin 3mg HS (10) Constipation: Plan: 2nd opiates, rectal ca, etc stopped the questran BID needs bowel regimen cont colace cont senna (11) Depression: Plan: Chronic Continue Sertraline 100mg po daily Consider adding remeron if needed - defer for now Plan updated pt's son by phone Sunday pm d/c tomorrow??? Admission and Anticipated Discharge Date Admission Date: August 14, 2022 Subjective feels very good he is pleased with his progress this weekend only complaint is the air that comes out of penis from his colo-vesicular fistula eating robustly today once again no central abd pain, nausea or emesis constipation remains we discussed his refusal of lovenox injections he is agreeable to once daily xarelto for DVT proph Review of Systems Review of Systems: cv - no orthopnea pulm - no dyspnea on exertion GI - no vomiting; constipation remains Physical Exam Physical Exam: gen - thin, NAD, laying in bed, again looks great today and is happy/pleasant mouth - MMM neck - no JVD heart - RRR, s1 s2, no murmur lungs - CTA b/l abd - soft, NT, ND, BS+ ext - no edema, pulses 2+ b/l psych - a/o x 3 Results & Data Results & Data ([facility]) Vital Signs (Past 12 Hours) Vital Signs Temp Pulse Resp BP Pulse Ox O2 Del Method 08/20/22 14:46 37.0 C 71 16 126/79 100 Room Air PG Care Time/CCT Total # of Minutes Spent Total Time Spent with Patient: Total time spent is greater than 50% in coordination of care (as documented) at patient's floor/unit and/or counseling patient: Coding Level of Care Code 63719 Subseq Hosp Care Lvl 2 Diagnoses Rectal cancer C20 Weakness R53.1 Colonic fistula K63.2 Hyponatremia E87.1 Severe protein-calorie malnutrition E43 Anemia D64.9 DVT prophylaxis Z29.9 Urge incontinence N39.41 Insomnia G47.00 Constipation K59.00 Depression F32.9
[2022-08-20] MEDS: RIVAROXABAN 10 MG TABLET PO SCH (22:12)
[2022-08-21 08:13] LABS: Creatinine Clr Calc Pharmacy 120.2 ml/min; Est GFR (African American) 123.2 ml/min; Est GFR (Non-African American) 106.3 ml/min
[2022-08-21] MEDS: MoRPHine SULFATE CR 60 MG TABCR PO SCH ×2 (09:16→20:38)
[2022-08-21] MEDS: GLYCOPYRROLATE 1 MG TAB PO SCH ×3 (09:16→20:38)
[2022-08-21] MEDS: FAMOTIDINE 20 MG TAB PO SCH (09:17)
[2022-08-21] MEDS: PANTOprazole 40 MG TAB PO SCH (09:17)
[2022-08-21] MEDS: GABAPENTIN 300 MG CAP PO SCH ×2 (09:17→14:42)
[2022-08-21] MEDS: TAMSULOSIN HCL 0.4 MG CAP PO SCH ×2 (09:18→20:38)
[2022-08-21] MEDS: SENNA 8.6 MG TAB PO SCH (09:18)
[2022-08-21] MEDS: SERTRALINE HCL 100 MG TABLET PO SCH (09:18)
[2022-08-21] MEDS: DOCUSATE SODIUM 100 MG CAP PO SCH ×2 (09:19→20:38)
--- NOTE | 2022-08-21 11:23 | Palliative Care Progress Note ---
Date of Service August 21, 2022 Assessment & Plan (1) Rectal pain: Plan: Improved on current medications. Continue same. (2) Palliative care encounter: Plan: He is anxious to have diverting colostomy/urostomy surgery. He feels a little scared "about what they are going to do to me", but is hopeful that this will improve his quality of life. Admission and Anticipated Discharge Date Admission Date: August 14, 2022 Subjective Ambulating in room to the bathroom. Feels that pain is better controlled. Using prn hydromorphone once or twice a day. Still has some pain with voiding and BMs but straining less. Review of Systems Review of Systems: ESAS Pain 1/3 Dyspnea 0/3 Anxiety 1/3 Nausea 0/3 Drowsiness 0/3 PPS 50% Physical Exam Constitutional: no acute distress ENMT: Mouth: oral mucous membranes not dry Respiratory: normal respiratory effort; no labored breathing Cardiovascular: Extremities: no edema Musculoskeletal: Extremities: + muscle atrophy Neurologic: Speech / Cognition: normal cognition Psychiatric: Affect: euthymic affect Results & Data ([facility]) Vital Signs (Past 12 Hours) Vital Signs Temp Pulse Resp BP Pulse Ox O2 Del Method 08/21/22 08:00 98.8 F 66 20 128/72 99 Room Air PG Care Time/CCT Total # of Minutes Spent Total Time Spent with Patient: Total time spent is greater than 50% in coordination of care (as documented) at patient's floor/unit and/or counseling patient: Coding Level of Care Code 04065 Subseq Hosp Care Lvl 2 Diagnoses Rectal pain K62.89 Palliative care encounter Z51.5
[2022-08-21] MEDS: RIVAROXABAN 10 MG TABLET PO SCH (14:42)
[2022-08-21] MEDS: traZODone HCL 50 MG TAB PO SCH (20:38)
[2022-08-21] MEDS: MELATONIN 3 MG TAB PO SCH (20:38)
[2022-08-21] MEDS: HYDROmorphone HCL 2 MG TAB PO PRN (20:38)
--- NOTE | 2022-08-21 22:42 | Hospitalist Progress Note ---
Date of Service August 21, 2022 Assessment & Plan (1) Rectal cancer: Plan: severe rectal pain, bladder pain, perineal pain most of his pain is from the rectal ca itself cannot rule out ?sigmoid diverticulitis as seen on CT a/p at admission but doubt as he is tolerating diet without increased abd pain, no fever, no LLQ pain, and normal wbc with minimal crp elevation urinary inflammation from colo-vesicular fistula? 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 I discussed this with [facility] today - they feel that a vaughn might make his urinary symptoms worse thus, defer on placing vaughn (4) Hyponatremia: Plan: resolved (5) Severe protein-calorie malnutrition: Plan: 50+ pounds of weight loss since rectal ca dx TPN initiated this week, but patient stated it caused him to void all night at his request stopped the TPN he is eating/drinking by mouth robustly if trazodone becomes not helpful consider remeron but hold off for now as he is sleeping and eating/drinking well (6) Anemia: Plan: mild Fe def consider IV venofer but defer for now b12/folate wnl likely component of anemia of chronic disease as well (7) DVT prophylaxis: Plan: stopped lovenox 30mg daily (he was refusing it every day) started xarelto 10mg daily (8) Urge incontinence: Plan: severe constant urgency, frequency, nocturia trial of oxybutinin immediate release was not helpful urology recommends against a vaughn cont flomax BID (9) Insomnia: Plan: cont trazodone 50mg HS cont melatonin 3mg HS (10) Constipation: Plan: 2nd opiates, rectal ca, etc stopped the questran BID needs bowel regimen cont colace cont senna (11) Depression: Plan: Chronic Continue Sertraline 100mg po daily Consider adding remeron if needed - defer for now Plan d/c home tomorrow patient has the following follow-up appointments post-d/c --- 1. September 25 - [place] [facility] [place] Camacho (diverting colostomy?); this is TENTATIVE at this time depending on availability of Dr Camacho 2. September 25 - [facility] - Dr Cui at [facility] - ultimately a urostomy? other? Admission and Anticipated Discharge Date Admission Date: August 14, 2022 Subjective patient feeling good today appetite is excellent rectal pain is improved/controlled had bowel movement earlier today no abd pain ambulating w/o difficulty we discussed d/c - he will have a ride from his family tomorrow Review of Systems Review of Systems: gen - good energy today, good appetite cv - no cp pulm - no dyspnea or COLÓN GI - no N/V Physical Exam Physical Exam: gen - thin, NAD, laying in bed, comfortable, looks great mouth - MMM neck - no JVD heart - RRR, s1 s2, no murmur lungs - CTA b/l abd - soft, NT, ND, BS+ ext - no edema, pulses 2+ b/l psych - a/o x 3 Results & Data Results & Data ([facility]) Vital Signs (Past 12 Hours) Vital Signs Temp Pulse Resp BP Pulse Ox O2 Del Method 08/21/22 14:56 36.8 C 74 18 129/71 99 Room Air 08/21/22 11:35 36.5 C 72 18 124/74 99 Room Air Laboratory Results Laboratory Results - last 24 hr 08/21/22 07:13 Sodium 136 Potassium 4.0 Chloride 106 Carbon Dioxide 27 Anion Gap 3 BUN 12 Creatinine 0.60 Est Cr Clr Drug Dosing 120.2 Est GFR ( Amer) 123.2 Est GFR (Non-Af Amer) 106.3 BUN/Creatinine Ratio 20.0 Glucose 93 Calcium 8.0 L PG Care Time/CCT Total # of Minutes Spent Total Time Spent with Patient: Total time spent is greater than 50% in coordination of care (as documented) at patient's floor/unit and/or counseling patient: Coding Level of Care Code 71904 Subseq Hosp Care Lvl 2 Diagnoses Rectal cancer C20 Weakness R53.1 Colonic fistula K63.2 Hyponatremia E87.1 Severe protein-calorie malnutrition E43 Anemia D64.9 DVT prophylaxis Z29.9 Urge incontinence N39.41 Insomnia G47.00 Constipation K59.00 Depression F32.9
[2022-08-21 23:39] VITALS: TEMP 98.1
[2022-08-22 07:20] VITALS: BP 126/72; PULSE 70; O2SAT 98
[2022-08-22] MEDS: SERTRALINE HCL 100 MG TABLET PO SCH (08:31)
[2022-08-22] MEDS: FAMOTIDINE 20 MG TAB PO SCH (08:31)
[2022-08-22] MEDS: GABAPENTIN 300 MG CAP PO SCH (08:31)
[2022-08-22] MEDS: MoRPHine SULFATE CR 60 MG TABCR PO SCH (08:31)
[2022-08-22] MEDS: PANTOprazole 40 MG TAB PO SCH (08:31)
[2022-08-22] MEDS: RIVAROXABAN 10 MG TABLET PO SCH (08:31)
[2022-08-22] MEDS: SENNA 8.6 MG TAB PO SCH (08:31)
[2022-08-22] MEDS: TAMSULOSIN HCL 0.4 MG CAP PO SCH (08:31)
[2022-08-22] MEDS: GLYCOPYRROLATE 1 MG TAB PO SCH (08:31)
[2022-08-22] MEDS: DOCUSATE SODIUM 100 MG CAP PO SCH (08:32)
[2022-08-22] MEDS: HEPARIN 100 UNIT/ML 5ML FLUSH FLUSH PRN (10:56)
--- NOTE | 2022-08-22 12:47 | Discharge Summary ---
Date of Service August 22, 2022 Admission HPI Per Admitting Provider Miguel Napier is a 62yo male with history of rectal adenocarcinoma diagnosed December 2021. He has completed XRT, Xeloda and 5/8 cycles of FOLFOX chemotherapy. He follows predominantly at [facility]. Patient has colovesical fistula formation. He passes urine from his rectum and oftenn passes air from his penis. He was recently seen at [facility] for evaluation by Colorectal surgery. He is to have fistula repair and placement of ostomy bags. He reports the surgery is not to be scheduled for 4-6 weeks. Patient is very distressed with this news. He has been having progressive functional decline over the last few weeks. He has been trying to eat but continues to lose weight. He reports becoming more and more weak with difficulty ambulating. He oftentimes is not strong enough to get to the bathroom in time and has been having incontinence. He wants to stop eating and drinking because of this incontinence. Patient has been having dizziness and near-syncope. He almost passed out while at [employer] He does not believe he can survive until surgery. Upon arrival to the ER patient is mildly hypotensive which improved with IVF. He is tearful during my encounter. Feels despair regarding his health. ER Course: NSS x 1L Principal Diagnosis Intractable rectal pain, generalized weakness, dehydration, malnourishment Discharge Exam gen - thin, NAD, laying in bed, comfortable, looks great mouth - MMM neck - no JVD heart - RRR, s1 s2, no murmur lungs - CTA b/l abd - soft, NT, ND, BS+ ext - no edema, pulses 2+ b/l psych - a/o x 3 Discharge Data Allergies Allergy/AdvReac Type Severity Reaction Status Date / Time shellfish derived Allergy Severe ANAPHYLACTI Verified 07/28/22 19:13 C amoxicillin Allergy Intermediate HIVES Verified 07/28/22 19:13 blue dye Allergy Intermediate HIVES, Verified 07/28/22 19:13 BLISTERS doxycycline Allergy Intermediate HIVES Verified 07/28/22 19:13 Fish Containing Products Allergy Intermediate HIVES, Verified 07/28/22 19:13 FEVER lisinopril Allergy Intermediate HIVES Verified 07/28/22 19:13 oseltamivir Allergy Intermediate HIVES, Verified 07/28/22 19:13 BLISTERS tetanus toxoid, adsorbed Allergy Intermediate FEVER Verified 07/28/22 19:13 Consultations 08/14/22 02:22 ED Decision to Admit Stat 08/18/22 09:11 Consult Palliative Care Routine Ordered Studies 08/13/22 22:11 CT abd pelvis IV con only Urgent Hospital Course (1) Rectal cancer: severe rectal pain, bladder pain, perineal pain most of his pain is from the rectal ca itself cannot rule out ?sigmoid diverticulitis as seen on CT a/p at admission but doubt as he is tolerating diet without increased abd pain, no fever, no LLQ pain, and normal wbc with minimal crp elevation urinary inflammation from colo-vesicular fistula? checked a PSA - very low - thus doubt we are dealing with prostatitis appreciate palliative care consultation for assistance with pain meds - fentanyl patch d/c; changed back to morphine ER 60mg BID cont dilaudid PO prn gabapentin 300mg 0900 and 1400 which is actually decreased from home dose of 600 Mg Started glycopyrrolate 1mg TID for spasms which is really helping pain control remains very satisfactory and he feels so much better no changes today and stable for discharge (2) Weakness: multifactorial but largest culprit is #1 and lack of sleep this is MUCH Improved Started trazodone - increased to 50mg HS and sleep much better; melatonin also to be used (3mg HS) (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 I discussed this with [facility] - they feel that a vaughn might make his urinary symptoms worse thus, defer on placing vaughn (4) Hyponatremia: resolved (5) Severe protein-calorie malnutrition: 50+ pounds of weight loss since rectal ca dx TPN initiated this week, but patient stated it caused him to void all night at his request stopped the TPN he is eating/drinking by mouth robustly if trazodone becomes not helpful consider remeron but hold off for now as he is sleeping and eating/drinking well (6) Anemia: mild Fe def consider IV venofer but defer for now b12/folate wnl likely component of anemia of chronic disease as well Follow with oncology (7) DVT prophylaxis: stopped lovenox 30mg daily (he was refusing it every day) started xarelto 10mg daily but does not need to be continued after discharge (8) Urge incontinence: severe constant urgency, frequency, nocturia trial of oxybutinin immediate release was not helpful urology recommends against a vaughn cont flomax BID Follow-up with urology as an outpatient Plan to have diverting colostomy which will help with his pain from the colovesicular fistula (9) Insomnia: cont trazodone 50mg HS cont melatonin 3mg HS (10) Constipation: Initially had severe diarrhea on admission and was given scheduled Imodium and started on Questran Then became constipated 2nd opiates, rectal ca, etc stopped the questran BID needs bowel regimen cont colace cont senna (11) Depression: Chronic Continue Sertraline 100mg po daily Consider adding remeron if needed - defer for now Plan d/c home today patient has the following follow-up appointments post-d/c --- 1. September 25 - potential surgery date at [facility] with Dr Camacho (diverting colostomy?); this is TENTATIVE at this time depending on availability of Dr Camacho 2. September 25 - [facility] - Dr Cui at [facility] - ultimately a urostomy? other? Total Time Total Time Spent Total Time Spent (In Minutes): 40 minutes Discussed care with palliative medicine Discharge Plan Discharge Items Patient Disposition: Home - Self-Care Reason For Visit: WEIGHT LOSS, WEAKNESS Discharge Diagnosis: Weight loss, generalized weakness, colovesicular fistula, intractable pain, colorectal cancer Condition on Discharge: Fair Activity: As commented below Bathing: No limitations Exercise/Sports: Gradually increase as tolerated Non-emergency contact: Primary Care Provider, Surgeon, Oncologist and Urologist Call non-emergency contact if: you have any medication questions, your symptoms worsen, your pain is not controlled, your pain is worsening, your pain is unusual for you, your pain is concerning for you and you have a fever Follow-up/Referrals: Duy Cui MD [Outside Practitioners] - 09/25/22 4:00 pm (THIS APPPOINTMENT IS AT THE [facility] LOCATION Please arrive 15 minutes prior to appointment time. ) Heather Peterson PA-C [Primary Care Provider] - (Please follow-up within 1 to 2 weeks.) Charisse Camacho MD [Outside Practitioners] - 09/21/22 10:45 am (THIS APPOINTMENT IS AT [facility] Please use elvator C to the 6th floor for General Surgery. You will receive a reminder in the mail with instructions as well. Please arrive 15 minutes prior to appointment time. ) Diet: Regular Addtl Attending Provider Instructions: You are admitted for malnutrition and dehydration causing weakness. This improved and you are able to gain some weight and tolerate food. Your pain was better controlled and your insomnia was improved with adjustments in your medications. Please follow-up with the colorectal surgeon and the urologist as scheduled for you. Please follow-up with your PCP within 1 to 2 weeks and she can ensure that you are not getting dehydrated again after discharge. Pending Studies at Discharge: No Stand-Alone Forms: My [facility] [employer], Smoking Cessation Medications and DC Order Prescriptions: New glycopyrrolate 1 mg Tablet 1 mg PO TID Qty: 90 0RF gabapentin 300 mg Capsule 300 mg PO BID@0900,1400 Qty: 60 0RF trazodone 50 mg Tablet 50 mg PO HS Qty: 30 0RF docusate sodium 100 mg Capsule 100 mg PO BID Qty: 60 0RF Rx Instructions: Xndr-yqm-plpxonq sennosides [Senokot] 8.6 mg Tablet 17.2 mg PO QAM Qty: 30 0RF Rx Instructions: Rmjx-jpq-haszyto melatonin 3 mg Tablet 3 mg PO HS Qty: 30 0RF Rx Instructions: Najd-nls-tzffrrj Continued multivitamin Tablet 1 tab PO DAILY loperamide [Anti-Diarrheal (loperamide)] 2 mg capsule 2 mg PO Q6H PRN (Reason: Diarrhea) tamsulosin 0.4 mg capsule 0.4 mg PO BID sertraline 100 mg tablet 100 mg PO DAILY lidocaine-prilocaine 2.5-2.5 % Cream 1 applic topical DIRECTED PRN (Reason: PORT ACCESS) famotidine 20 mg Tablet 20 mg PO DAILY pantoprazole 40 mg tablet,delayed release (DR/EC) 40 mg PO QAM hydromorphone 8 mg tablet 8 mg PO Q3H PRN (Reason: breakthrough pain) Qty: 30 0RF morphine [MS Contin] 60 mg tablet extended release 60 mg PO Q12H Qty: 60 0RF Rx Instructions: 1 tablet in the morning and 1 tablet before bedtime Discontinued diphenoxylate-atropine 2.5-0.025 mg tablet 1 tab PO Q6H PRN (Reason: Diarrhea) Diltiazem 20 mg/mL gel 1 applic topical TID Rx Instructions: administer per rectum TID ciprofloxacin HCl [Cipro] 500 mg tablet 500 mg PO BID Qty: 20 0RF metronidazole 500 mg tablet 500 mg PO TID Qty: 30 0RF gabapentin 600 mg tablet 600 mg PO BID Rx Instructions: is ordered qid hydroxyzine HCl 25 mg tablet 25 - 50 mg PO HS Discharge Orders: Discharge Order (Routine); Ordered 08/22/22 Ordered By: Faby Orozco Admission Data Admit Date/Time: 08/14/22 02:55 Attending Provider: Faby Orozco Admit Provider: Galina Reeves Primary Care Provider: Heather Peterson Other Providers: Galina Reeves ; Cherelle Rogers ; Kenny Craft Coding Level of Care Code D/C DAY MANAGEMENT >30 MINS Diagnoses Rectal cancer C20 Weakness R53.1 Colonic fistula K63.2 Hyponatremia E87.1 Severe protein-calorie malnutrition E43 Anemia D64.9 DVT prophylaxis Z29.9 Urge incontinence N39.41 Insomnia G47.00 Constipation K59.00 Depression F32.9
== END 2022-08-22 14:17 | disposition home or self-care (01) | DRG 374 ==
LOC: ED 18:53 → SUATTDRO 08-14 02:55 → INTOOBSV 08-14 02:55 → 3W 08-14 02:55